=== PATIENT | female | born 1965 | race Caucasian/White ===

== ENCOUNTER 2020-06-23 09:30 | Outpatient (REF) | payer OTHER, SELFPAY ==
[2020-06-23 11:10] LABS: Alanine Aminotransferase 24 U/L (0-31); Albumin Level 4.3 g/dL (3.5-5.0); Alkaline Phosphatase 134 U/L (39-117); Anion Gap 13 (12-20); Aspartate Amino Transferase 17 U/L (5-31); Bilirubin Total 0.3 mg/dL (0.0-1.0); Blood Urea Nitrogen 12 mg/dL (9-16); Calcium 9.2 mg/dL (8.4-10.2); Carbon Dioxide 26 mmol/L (22-29); Chloride 107 mmol/L (96-108); Estimated Glomerular Filt Rate 55; Glucose Fasting 110 mg/dL (60-99); Magnesium 2.2 mg/dL (1.6-2.6); Phosphorus 4.3 mg/dL (2.7-4.5); Potassium 5.3 mmol/l (3.3-5.1); Sodium 141 mmol/L (135-145)
[2020-06-25 19:16] LABS: Calcium (PTHI) 9.5 mg/dL (8.6-10.4); PTHI 64 pg/mL (14-64)
== END 2020-06-23 09:31 | disposition home or self-care (01) ==
LOC: HO.LAB 09:30
PROVIDERS: PCP Internal Medicine; Visit Provider Internal Medicine Endocrinology, Diabetes & Metabolism
DX: E21.3 Hyperparathyroidism, unspecified (principal)
CPT/HCPCS: 36415; 80053; 83735; 83970; 84100

== ENCOUNTER 2020-06-27 07:21 | Outpatient (REF) | payer OTHER, SELFPAY ==
[2020-06-27 08:40] LABS: Anion Gap 14 (12-20); Blood Urea Nitrogen 13 mg/dL (9-16); Calcium 9.3 mg/dL (8.4-10.2); Carbon Dioxide 26 mmol/L (22-29); Chloride 108 mmol/L (96-108); Estimated Glomerular Filt Rate 52; Glucose Random 117 mg/dL (60-115); Potassium 4.7 mmol/l (3.3-5.1); Sodium 143 mmol/L (135-145)
== END 2020-06-27 07:22 | disposition home or self-care (01) ==
LOC: HO.LAB 07:21
PROVIDERS: PCP Internal Medicine; Visit Provider Internal Medicine Endocrinology, Diabetes & Metabolism
DX: E21.0 Primary hyperparathyroidism (principal)
CPT/HCPCS: 80048

== ENCOUNTER → 2020-06-29 09:21 | Outpatient (BNVA) | payer OTHER, SELFPAY | PROVIDERS: PCP Internal Medicine; Referring Provider Internal Medicine; Visit Provider Internal Medicine Endocrinology, Diabetes & Metabolism | DX: E11.9 Type 2 diabetes mellitus without complications (principal); Z79.84 Long term (current) use of oral hypoglycemic drugs; E04.2 Nontoxic multinodular goiter; I10 Essential (primary) hypertension; E78.5 Hyperlipidemia, unspecified; E66.9 Obesity, unspecified; Z68.37 Body mass index [BMI] 37.0-37.9, adult; E21.0 Primary hyperparathyroidism | CPT/HCPCS: 82947 ==

== ENCOUNTER 2020-07-27 10:16 | Outpatient (REF) | payer OTHER, SELFPAY ==
--- NOTE | 2020-07-27 10:21 | MM_ITS ---
EXAMINATION: MM SCREENING DIGITAL BREAST TOMOSYNTHESIS, BILATERAL CLINICAL INFORMATION: Screening. Asymptomatic. The lifetime risk of breast cancer based on the Tyrer-Cuzick Model is 10.8%. COMPARISON: Mammography: July 22, 2019 and studies dating back to August 03, 2012 TECHNIQUE: Digital breast tomosynthesis is performed in both the craniocaudal and mediolateral oblique views along with computer-aided detection (CAD). Synthesized 2D images are generated from the tomosynthesis. FINDINGS: The breasts are almost entirely fatty (ACR BI-RADS breast composition Category a). There are no significant masses, abnormal calcifications, or other abnormalities. MM/MM tomosynthesis screening BI IMPRESSION: There are no significant changes from prior study. ASSESSMENT: BI-RADS 1: Negative RECOMMENDATION: Routine annual mammography screening. This patient's information was entered into a reminder system with a target due date for their next mammogram.
== END 2020-07-27 10:17 | disposition home or self-care (01) ==
LOC: HO.MAMMO 10:16
PROVIDERS: PCP Internal Medicine; Visit Provider Internal Medicine
DX: Z12.31 Encounter for screening mammogram for malignant neoplasm of breast (principal)
CPT/HCPCS: 77063; 77067

== ENCOUNTER 2020-08-04 08:17 | Outpatient (REF) | payer OTHER, SELFPAY ==
[2020-08-04 09:44] LABS: Alanine Aminotransferase 27 U/L (0-31); Albumin Level 4.3 g/dL (3.5-5.0); Alkaline Phosphatase 120 U/L (39-117); Anion Gap 12 (12-20); Aspartate Amino Transferase 19 U/L (5-31); Bilirubin Total 0.3 mg/dL (0.0-1.0); Blood Urea Nitrogen 10 mg/dL (9-16); Calcium 8.8 mg/dL (8.4-10.2); Carbon Dioxide 30 mmol/L (22-29); Chloride 105 mmol/L (96-108); Cholesterol 169 mg/dL; Estimated Glomerular Filt Rate > 60; Glucose Fasting 122 mg/dL (60-99); HDL Cholesterol 62 mg/dL; LDL Cholesterol Calculated 84 mg/dl; Potassium 4.6 mmol/l (3.3-5.1); Sodium 142 mmol/L (135-145); Total Protein 6.8 g/dL (6.5-8.0); Triglycerides 115 mg/dL
[2020-08-04 10:04] LABS: Vitamin D 25-OH Total 40.3 ng/mL (>30)
[2020-08-06 23:16] LABS: Adrenocorticotropic Hormone 12 pg/mL (6-50)
[2020-08-08 15:11] LABS: Dexamethasone <20 ng/dL
== END 2020-08-04 08:18 | disposition home or self-care (01) ==
LOC: HO.LAB 08:17
PROVIDERS: Internal Medicine Endocrinology, Diabetes & Metabolism; PCP Internal Medicine; Visit Provider Internal Medicine
DX: E66.9 Obesity, unspecified (principal); E11.9 Type 2 diabetes mellitus without complications; E55.9 Vitamin D deficiency, unspecified
CPT/HCPCS: 80053; 80061; 80299; 82024; 82306; 82533

== ENCOUNTER 2020-10-01 10:09 | Outpatient (REF) | payer OTHER, SELFPAY ==
--- NOTE | 2020-10-01 10:14 | XR_ITS ---
EXAMINATION: XR WRIST, LEFT CLINICAL INFORMATION: Left wrist pain. COMPARISON: None. TECHNIQUE: PA, lateral, oblique, and scaphoid views of the left wrist. FINDINGS: No acute fracture or dislocation. Normal carpal alignment. Mild joint space narrowing with tiny marginal osteophytes at the 1st carpometacarpal joint. No osseous erosion. No abnormal soft tissue calcification. XR/XR wrist LT min 3V IMPRESSION: Mild degenerative arthritis at the 1st carpometacarpal joint.
== END 2020-10-01 10:10 | disposition home or self-care (01) ==
LOC: HO.XRAY 10:09
PROVIDERS: PCP Internal Medicine; Visit Provider Internal Medicine
DX: M25.532 Pain in left wrist (principal)
CPT/HCPCS: 73110

== ENCOUNTER → 2020-10-05 08:26 | Outpatient (BNVA) | payer OTHER, SELFPAY | PROVIDERS: PCP Internal Medicine; Visit Provider Internal Medicine Endocrinology, Diabetes & Metabolism | DX: Z76.89 Persons encountering health services in other specified circumstances (principal) ==

== ENCOUNTER 2020-11-09 10:00 | Outpatient (RCR) | payer OTHER, SELFPAY ==
--- NOTE | 2020-11-09 11:05 | MHC.OT.DC ---
[address] [phone] F: [phone] Occupational Therapy Discharge Note Provider: DR. TIO HERNANDEZ Diagnosis: LEFT WRIST PAIN Date of Surgery: Date of Evaluation: 10/05/20 Date of Discharge: Treatments to Date: 5 Cancellations to Date: 0 No Shows to Date: 0 Discharge Status: Achieved Goals Improved Function Independent with HEP Discharge Summary: Pt LEFT RADIAL WRIST AND BASAL JT PAIN AND LEFT HAND FUNCTION IMPROVED. SHE REPORTS NO TO MILD DIFFICULTY WITH SEWING, LIGHT QUILTING AND HOMEMAKING . 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
== END 2020-11-09 11:04 | disposition other institution (70) ==
LOC: HO.OT 10:00
PROVIDERS: PCP Internal Medicine; Visit Provider Internal Medicine
DX: M25.532 Pain in left wrist (principal)
CPT/HCPCS: 29130; 97035; 97110; 97140; 97165; 97760

== ENCOUNTER 2021-02-14 08:25 | Outpatient (REF) | payer OTHER, SELFPAY ==
--- NOTE | ~2021-02-14 | US_ITS ---
EXAMINATION: US THYROID CLINICAL INFORMATION: Nontoxic multinodular goiter. COMPARISON: Ultrasound soft tissue head/neck thyroid dated 07/29/2019 and 08/14/2017. TECHNIQUE: Linear transducer grayscale and color Doppler examination with attention to the region of the thyroid. FINDINGS: SIZE: Measurements of the thyroid lobes and nodules are given in sagittal, anteroposterior and transverse dimensions respectively. Right Thyroid Lobe: 4.2 x 2.1 x 1.5 cm, volume 7.0 mL. Previously 4.4 x 1.4 x 1.4 cm, volume 4.6 mL. Parenchyma: The gland echotexture is homogeneous. Thyroid vascularity is normal. Left Thyroid Lobe: 4.6 x 2.2 x 1.3 cm, volume 6.8 mL. Previously 3.9 x 1.3 x 1.4 cm, volume 3.9 mL. Parenchyma: The gland echotexture is homogeneous. Thyroid vascularity is normal. Isthmus: 0.4 cm in maximum AP dimension. Previously 0.2 cm. Estimated total number of nodules greater than or equal to 1 cm: 3. Transcription nodules are described as follows: 1. Location: Right mid. Size: 1.1 x 0.6 x 1.0 cm, volume 0.3 mL. Previously: 0.9 x 0.4 x 0.6 cm, volume 0.1 mL. Nodule characteristics: Composition: Solid/almost completely solid (2). Echogenicity: Isoechoic (1). Shape: Not taller than wide (0). Margins: Smooth (0). Echogenic Foci: None (0). ACR TI-RADS total points: 3 Previous: n/a ACR TI-RADS category: 3 Previous: n/a Significant change in size (>/= 20% in 2 dimensions and minimal increase of 2 mm or 50% or greater increase in volume): This nodule was previously biopsied on February 16, 2020. Change in features: Enlargement Change in ACR TI-RADS risk category: n/a 2. Location: Left mid. Size: 1.0 x 0.7 x 1.0 cm, volume 0.4 mL. Previously: 0.8 x 0.4 x 0.7 cm, volume 0.1 mL. Nodule characteristics: Composition: Solid/almost completely solid (2). Echogenicity: Hypoechoic (2). Shape: Not taller than wide (0). Margins: Smooth (0). Echogenic Foci: None (0). ACR TI-RADS total points: 4 Previous: n/a ACR TI-RADS category: 4 Previous: n/a Significant change in size (>/= 20% in 2 dimensions and minimal increase of 2 mm or 50% or greater increase in volume): Yes Change in features: No Change in ACR TI-RADS risk category: n/a 3. Location: Left inferior. Size: 0.8 x 0.5 x 0.7 cm, volume 0.15 mL. Previously: 0.6 x 0.4 x 0.4 cm, volume 0.05 mL. Nodule characteristics: Composition: Solid/almost completely solid (2). Echogenicity: Hyperechoic (1). Shape: Not taller than wide (0). Margins: Smooth (0). Echogenic Foci: None (0). ACR TI-RADS total points: 3 Previous: n/a ACR TI-RADS category: 3 Previous: n/a Significant change in size (>/= 20% in 2 dimensions and minimal increase of 2 mm or 50% or greater increase in volume): Yes Change in features: No Change in ACR TI-RADS risk category: n/a 4. Location: Left inferior. Size: 1.0 x 0.4 x 0.8 cm, volume 0.2 mL. Nodule characteristics: Composition: Mixed cystic and solid (1). Echogenicity: Hypoechoic (2). Shape: Not taller than wide (0). Margins: Smooth (0). Echogenic Foci: None (0). ACR TI-RADS total points: 3 ACR TI-RADS category: 3 NODES: No lymphadenopathy is seen in the tissue surrounding the thyroid gland. US/US thyroid IMPRESSION: Multiple thyroid nodules with one TR4 nodule within the midpole of the left thyroid gland for which continued follow-up is recommended. ACR TI-RADS RECOMMENDATION REFERENCE: Ultrasound-guided fine-needle aspiration, followup ultrasound, no further follow up. * TR1 (0 point) and TR 2 (2 points): No FNA or follow up * TR3 (3 points): FNA if more than or equal to 2.5 cm in maximum dimension, followup ultrasound in 1, 3 and 5 years if 1.5 to 2.4 cm in maximum dimension. * TR4 (4-6 points): FNA if more than or equal to 1.5 cm in maximum dimension, followup ultrasound in 1, 2, 3 and 5 years if 1 to 1.4 cm in maximum dimension. * TR5 (more than or equal to 7 points): FNA if more than or equal to 1 cm in maximum dimension, followup ultrasound every year for 5 years if 0.5 to 0.9 cm in maximum dimension. * TR3, TR4 or TR5 nodules that are below the size threshold for follow up receive no follow up.
== END 2021-02-14 08:26 | disposition home or self-care (01) ==
LOC: HO.US 08:25
PROVIDERS: PCP Internal Medicine; Visit Provider Internal Medicine Endocrinology, Diabetes & Metabolism
DX: E04.2 Nontoxic multinodular goiter (principal)
CPT/HCPCS: 76536

== ENCOUNTER 2021-03-19 06:53 | Outpatient (REF) | payer OTHER, SELFPAY ==
[2021-03-19 07:33] LABS: MANUAL DIFF FLAG NO
[2021-03-19 07:39] LABS: Basophils Percent Auto 0.4 % (0-2); Eosinophils Absolute Auto 0.1 X10*3/uL (0.0-0.4); Eosinophils Percent Auto 0.9 % (0-4); Hematocrit 38.4 % (37-47); Hemoglobin 12.3 g/dl (12.0-16.0); Imm Gran Abs Auto 0.02 X10*3/uL (0.00-0.03); Imm Gran Pct Auto 0.2 % (0.0-0.4); Lymphocytes Absolute Auto 2.6 X10*3/uL (1.2-4.9); Lymphocytes Percent Auto 31.1 % (20-40); Mean Corpuscular Hemoglobin 27.5 pg (27.0-33.0); Mean Corpuscular Volume 85.9 fL (80-98); Mean Platelet Volume 9.7 fL (9.4-12.3); Monocytes Absolute Auto 0.7 X10*3/uL (0.1-1.2); Monocytes Percent Auto 8.7 % (2-11); Neutrophils Percent Auto 58.7 % (45-73); Platelet Count 251 X10*3/uL (160-400); Red Blood Count 4.47 X10*6/uL (4.20-5.50); Red Cell Distribution Width 13.2 % (11.0-16.0); White Blood Count 8.4 X10*3/uL (4.8-10.8)
[2021-03-19 08:00] LABS: Estimated Average Glucose 134 mg/dL; Hemoglobin A1c % 6.3 %
[2021-03-19 08:01] LABS: Alanine Aminotransferase 21 U/L (0-31); Albumin Level 4.1 g/dL (3.5-5.0); Alkaline Phosphatase 103 U/L (39-117); Anion Gap 16 (12-20); Aspartate Amino Transferase 18 U/L (5-31); Bilirubin Total 0.2 mg/dL (0.0-1.0); Blood Urea Nitrogen 13 mg/dL (9-16); Calcium 9.1 mg/dL (8.4-10.2); Carbon Dioxide 27 mmol/L (22-29); Chloride 106 mmol/L (96-108); Cholesterol 169 mg/dL; Estimated Glomerular Filt Rate 57; Glucose Fasting 140 mg/dL (60-99); HDL Cholesterol 64 mg/dL; LDL Cholesterol Calculated 88 mg/dl; Lactate Dehydrogenase 185 U/L (122-220); Potassium 4.7 mmol/L (3.3-5.1); Sodium 144 mmol/L (135-145); Total Protein 6.7 g/dL (6.5-8.0); Triglycerides 87 mg/dL
[2021-03-19 08:21] LABS: Vitamin D 25-OH Total 33.4 ng/mL (>30)
[2021-03-19 08:34] LABS: Folate 8.8 ng/mL (> or = 4.0); Vitamin B12 342 pg/mL (200-900)
[2021-03-19 09:28] LABS: Creatinine Urine 178.64 mg/dL; Microalbum/Creatinine Ratio Ur 3.9 ug/mg cr
[2021-03-21 14:01] LABS: Calcium (PTHI) 9.3 mg/dL (8.6-10.4); PTHI 50 pg/mL (14-64)
[2021-03-22 18:57] LABS: Adrenocorticotropic Hormone 17 pg/mL (6-50)
[2021-03-24 14:51] LABS: VITAMIN D (1,25 OH) D3 29 pg/mL; Vit D (1,25-Dihydroxy) Total 29 pg/mL (18-72); Vitamin D (1,25 OH) D2 <8 pg/mL
== END 2021-03-19 06:54 | disposition home or self-care (01) ==
LOC: HO.LAB 06:53
PROVIDERS: Absent Provider Internal Medicine; PCP Internal Medicine; Visit Provider Internal Medicine Endocrinology, Diabetes & Metabolism
DX: C64.9 Malignant neoplasm of unspecified kidney, except renal pelvis (principal); E78.5 Hyperlipidemia, unspecified; E11.65 Type 2 diabetes mellitus with hyperglycemia; E21.0 Primary hyperparathyroidism; E66.9 Obesity, unspecified
CPT/HCPCS: 36415; 80053; 80061; 82024; 82043; 82306; 82533; 82607; 82652; 82746; 83036; 83615; 83970; 84100; 85025

== ENCOUNTER → 2021-03-22 07:56 | Outpatient (BNVA) | payer OTHER, SELFPAY | PROVIDERS: PCP Internal Medicine; Visit Provider Internal Medicine Endocrinology, Diabetes & Metabolism | DX: E11.65 Type 2 diabetes mellitus with hyperglycemia (principal); E04.2 Nontoxic multinodular goiter; E78.5 Hyperlipidemia, unspecified; E66.9 Obesity, unspecified; E21.0 Primary hyperparathyroidism; I10 Essential (primary) hypertension | CPT/HCPCS: 82947 ==

== ENCOUNTER 2021-03-27 07:27 | Outpatient (REF) | payer OTHER, SELFPAY ==
[2021-03-27 08:36] LABS: Alanine Aminotransferase 23 U/L (0-31); Albumin Level 4.5 g/dL (3.5-5.0); Alkaline Phosphatase 107 U/L (39-117); Anion Gap 15 (12-20); Aspartate Amino Transferase 16 U/L (5-31); Bilirubin Total 0.6 mg/dL (0.0-1.0); Blood Urea Nitrogen 13 mg/dL (9-16); Calcium 9.6 mg/dL (8.4-10.2); Carbon Dioxide 24 mmol/L (22-29); Chloride 106 mmol/L (96-108); Estimated Glomerular Filt Rate 56; Glucose Fasting 122 mg/dL (60-99); Potassium 4.9 mmol/L (3.3-5.1); Sodium 140 mmol/L (135-145); Total Protein 7.6 g/dL (6.5-8.0)
[2021-03-29 23:21] LABS: Adrenocorticotropic Hormone <5 pg/mL (6-50)
[2021-04-03 18:36] LABS: Saliva Cortisol 0.04 mcg/dL
[2021-04-04 10:26] LABS: Dexamethasone 313 ng/dL
== END 2021-03-27 07:28 | disposition home or self-care (01) ==
LOC: HO.LAB 07:27
PROVIDERS: PCP Internal Medicine; Visit Provider Internal Medicine Endocrinology, Diabetes & Metabolism
DX: E66.9 Obesity, unspecified (principal); E11.65 Type 2 diabetes mellitus with hyperglycemia
CPT/HCPCS: 36415; 80053; 80299; 82024; 82530; 82533

== ENCOUNTER 2021-07-27 08:47 | Outpatient (REF) | payer OTHER, SELFPAY ==
[2021-07-27 09:40] LABS: Alanine Aminotransferase 26 U/L (0-31); Albumin Level 4.4 g/dL (3.5-5.0); Alkaline Phosphatase 96 U/L (39-117); Anion Gap 13 (12-20); Aspartate Amino Transferase 18 U/L (5-31); Bilirubin Total 0.4 mg/dL (0.0-1.0); Blood Urea Nitrogen 15 mg/dL (9-16); Calcium 8.8 mg/dL (8.4-10.2); Carbon Dioxide 28 mmol/L (22-29); Chloride 106 mmol/L (96-108); Cholesterol 172 mg/dL; Estimated Glomerular Filt Rate 52; Glucose Fasting 126 mg/dL (60-99); HDL Cholesterol 57 mg/dL; LDL Cholesterol Calculated 92 mg/dl; Potassium 4.7 mmol/L (3.3-5.1); Sodium 142 mmol/L (135-145); Total Protein 7.1 g/dL (6.5-8.0); Triglycerides 117 mg/dL
[2021-07-27 10:39] LABS: Cortisol Random 10.5 ug/dL
[2021-07-29 13:21] LABS: PTHI 45 pg/mL (14-64)
[2021-07-29 17:52] LABS: Adrenocorticotropic Hormone 17 pg/mL (6-50)
[2021-08-01 15:16] LABS: VITAMIN D (1,25 OH) D3 52 pg/mL; Vit D (1,25-Dihydroxy) Total 52 pg/mL (18-72); Vitamin D (1,25 OH) D2 <8 pg/mL
[2021-08-07 10:17] LABS: Dexamethasone <20 ng/dL
== END 2021-07-27 08:48 | disposition home or self-care (01) ==
LOC: HO.LAB 08:47
PROVIDERS: Absent Provider Internal Medicine; PCP Internal Medicine; Visit Provider Internal Medicine Endocrinology, Diabetes & Metabolism
DX: E11.65 Type 2 diabetes mellitus with hyperglycemia (principal); E66.9 Obesity, unspecified; E21.0 Primary hyperparathyroidism; E78.5 Hyperlipidemia, unspecified
CPT/HCPCS: 36415; 80053; 80061; 80299; 82024; 82306; 82533; 82652; 83970

== ENCOUNTER 2021-08-23 09:42 | Outpatient (REF) | payer OTHER, SELFPAY ==
--- NOTE | ~2021-08-23 | MM_ITS ---
EXAMINATION: MM SCREENING DIGITAL BREAST TOMOSYNTHESIS, BILATERAL CLINICAL INFORMATION: Screening. Asymptomatic. The lifetime risk of breast cancer based on the Tyrer-Cuzick Model is 11%. COMPARISON: Mammography: 07/27/2020, 07/22/2019, 05/07/2018 TECHNIQUE: Digital breast tomosynthesis is performed in both the craniocaudal and mediolateral oblique views along with computer-aided detection (CAD). Synthesized 2D images are generated from the tomosynthesis. Additional bilateral exaggerated CC views are provided. FINDINGS: There are scattered areas of fibroglandular density (ACR BI-RADS breast composition Category b). Breast tissue composition borders on predominantly fatty. Background stromal and fibroglandular densities are stable. There are no significant masses, abnormal calcifications, or other abnormalities. MM/MM tomosynthesis screening BI IMPRESSION: No mammographic evidence of malignancy. ASSESSMENT: BI-RADS 1: Negative RECOMMENDATION: Routine annual mammography screening. This patient's information was entered into a reminder system with a target due date for their next mammogram.
== END 2021-08-23 09:43 | disposition home or self-care (01) ==
LOC: HO.MAMMO 09:42
PROVIDERS: Visit Provider Internal Medicine
DX: Z12.31 Encounter for screening mammogram for malignant neoplasm of breast (principal)
CPT/HCPCS: 77063; 77067

== ENCOUNTER → 2021-10-03 14:30 | Outpatient (BNVA) | payer OTHER, SELFPAY | PROVIDERS: PCP Internal Medicine; Referring Provider Internal Medicine; Visit Provider Nurse Practitioner ==

== ENCOUNTER 2021-10-29 08:54 | Day surgery (SDC) | payer OTHER, SELFPAY ==
[2021-10-24 10:39] VITALS: BMI 35.6
--- NOTE | 2021-10-28 09:20 | P.CONAN_ITS ---
Documented by User: Jackie Rodriguez NP 10/28/21 09:25 HPI - Anesthesia Eval Consult details Narrative: 56yo F for Colonoscopy PMFSH Active Problems Active Problems: All Active Problems (Updated 10/03/21 @ 15:06 by CRIS Gutierrez) Constipation (Acute) Tubulovillous adenoma of colon (Acute) GERD (gastroesophageal reflux disease) (Acute) Mild recurrent major depression (Acute) Class 2 severe obesity with serious comorbidity and body mass index (BMI) of 38.0 to 38.9 in adult (Acute) Change in bowel habits (Acute) Cancer of right kidney (Chronic) Left wrist pain (Acute) Obesity (BMI 30-39.9) (Acute) Diabetes type 2, controlled (Acute) Non-toxic multinodular goiter (Acute) Hypertension (Acute) Dyslipidemia (Acute) Primary hyperparathyroidism (Acute) Past Medical History Medical History Cancer of right kidney Change in bowel habits Class 2 severe obesity with serious comorbidity and body mass index (BMI) of 38.0 to 38.9 in adult Depression Diabetes type 2, controlled Dyslipidemia GERD (gastroesophageal reflux disease) Hypertension Left wrist pain Mild recurrent major depression Non-toxic multinodular goiter Obesity (BMI 30-39.9) Primary hyperparathyroidism Family History Family History Father Diabetes Hypertension High cholesterol Mother Dementia Mental health disorder Surgical History Surgical History History of back surgery History of kidney surgery History of parathyroidectomy History of removal of ovarian cyst Social History Social History Housing: House Alcohol intake: never Patient Tobacco Use Status: Never used Tobacco e-Cigarette/Vaping Use: Never Used Second Hand Smoke Exposure: No Use of substances other than those prescribed or required for medical reasons: Yes Substance Use Frequency: Weekly Are you DNR?: No Advance Directives: No Advance Directives Information Provided: Yes service: No Current occupational status: employed Current occupational exposures/hazards: No Meds Allergies Allergy/AdvReac Type Severity Reaction Status Date / Time No Known Allergies Allergy Verified 10/03/21 14:48 [No Known Allergies*] Home Medications Medication Instructions Recorded Confirmed Last Taken Type aripiprazole 5 mg tablet 5 mg PO DAILY 06/29/20 07/31/21 Unknown History aspirin 81 mg tablet,delayed 81 mg PO DAILY 06/29/20 07/31/21 Unknown History release (Adult Aspirin Regimen) bupropion HCl 300 mg 24 hr tablet, 300 mg PO QAM 06/29/20 07/31/21 Unknown History extended release (Wellbutrin XL) aripiprazole 2 mg tablet 2 mg PO DAILY 07/31/21 07/31/21 Unknown History escitalopram oxalate 10 mg tablet 10 mg PO DAILY 10/03/21 Unknown History Exam Exam Date and Time: October 28, [id number] Height,Weight and Vital Signs: Height 5 ft 6 in Weight 100.244 kg Pertinent Lab Results Pertinent Lab Results: Laboratory Tests 03/19/21 07/27/21 07:15 09:03 WBC 8.4 Hgb 12.3 Hct 38.4 Plt Count 251 Sodium 142 Potassium 4.7 Chloride 106 Carbon Dioxide 28 BUN 15 Creatinine 1.10 Assessment and Plan Assessment Anesthesia Assessment: Chart Reviewed Documented by User: Shashi Alanis MD 10/29/21 09:36 [facility] Past Medical History Medical History Cancer of right kidney Change in bowel habits Class 2 severe obesity with serious comorbidity and body mass index (BMI) of 38.0 to 38.9 in adult Depression Diabetes type 2, controlled Dyslipidemia GERD (gastroesophageal reflux disease) Hypertension Left wrist pain Mild recurrent major depression Non-toxic multinodular goiter Obesity (BMI 30-39.9) Primary hyperparathyroidism Family History Family History Father Diabetes Hypertension High cholesterol Mother Dementia Mental health disorder Family history of problems with anesthesia: No Surgical History Surgical History History of back surgery History of kidney surgery History of parathyroidectomy History of removal of ovarian cyst History of Problems with Anesthesia: No Social History Social History Housing: House Alcohol intake: never Patient Tobacco Use Status: Never used Tobacco e-Cigarette/Vaping Use: Never Used Second Hand Smoke Exposure: No Use of substances other than those prescribed or required for medical reasons: Yes Substance Use Frequency: Weekly Are you DNR?: No Advance Directives: No Advance Directives Information Provided: Yes service: No Current occupational status: employed Current occupational exposures/hazards: No Meds Allergies Allergy/AdvReac Type Severity Reaction Status Date / Time No Known Allergies Allergy Verified 10/03/21 14:48 [No Known Allergies*] Home Medications Medication Instructions Recorded Confirmed Last Taken Type aripiprazole 5 mg tablet 5 mg PO DAILY 06/29/20 07/31/21 Unknown History aspirin 81 mg tablet,delayed 81 mg PO DAILY 06/29/20 07/31/21 Unknown History release (Adult Aspirin Regimen) bupropion HCl 300 mg 24 hr tablet, 300 mg PO QAM 06/29/20 07/31/21 Unknown History extended release (Wellbutrin XL) aripiprazole 2 mg tablet 2 mg PO DAILY 07/31/21 07/31/21 Unknown History escitalopram oxalate 10 mg tablet 10 mg PO DAILY 10/03/21 Unknown History Exam Airway Mallampati Class: II TM Dist: >3cm Neck ROM: Full Loose/Missing/Broken Teeth: No Heart: [id number] Lungs: cta b/l Assessment and Plan Assessment Anesthesia Assessment: Anesthesia Plan Discussed Final Anesthetic Review Family History of Problems with Anesthesia: No History of Problems with Anesthesia: No NPO: Yes ASA Class: III Final Preanesthetic Review: No Changes in Pt Med Stat, Meds/Allgs Chart Reviewed, Consent Obtained/Reviewed and Anes Risks/Benef Reviewed Patient Risk: Intermediate Procedure Risk: Intermediate Assessment/Block/Sedation in SS: Assess/Block/Sedation-SS Anesthetic Plan Anesthetic Plan: MAC: and Agree w/ Assess. and Plan Disposition: Standard PACU
--- NOTE | 2021-10-29 08:56 | MHC.SHP ---
Pre-Procedural Eval Section A Date of Service: 10/29/21 Section B Chief Complaint: Benign neoplasm of Colon, unspecified Relevant Family History (Specify if Yes): No Relevant Social History: None Present Medications: see Short Stay Collaborative assessment Medical History: Significant History (Cancer of right kidney Change in bowel habits Class 2 severe obesity with serious comorbidity and body mass index (BMI) of 38.0 to 38.9 in adult Depression Diabetes type 2, controlled Dyslipidemia GERD (gastroesophageal reflux disease) Hypertension Left wrist pain Mild recurrent major depression Non) History of Previous Operations: Relevant previous surgery/procedure and date(s) (History of back surgery History of kidney surgery History of parathyroidectomy History of removal of ovarian cyst) Allergies: Allergies Allergy/AdvReac Type Severity Reaction Status Date / Time No Known Allergies Allergy Verified 10/03/21 14:48 [No Known Allergies*] Review of Systems Sugical H&P ROS: Negative: Constitution, Cardiovascular, Respiratory, Neurological, Psychiatric, Hem-Onc, Allergic/Immunologic, Gastrointestinal, Genitourinary, Musculoskeletal, Integumentary, Endocrine and Eyes/Ears/Nose/Throat Exam Surgical H&P Exam: Normal: HEENT, Normal: Heart, Normal: Lungs, Normal: Extremities, Normal: Abdomen, Normal: Skin and Normal: Neurological Plan Diagnosis/Plan: Unchanged I have reviewed the history and physical and performed a pertinent physical examination on my patient. No changes have occurred unless specified.
[2021-10-29 09:20] VITALS: BP 142/77; PULSE 86; RESP 18; TEMP 36.8; O2SAT 95
[2021-10-29 09:26] LABS: Glucose, Whole Blood 118 mg/dL (60-115)
[2021-10-29] MEDS: Lactated Ringers 1,000 ML 100 ML IVCONT (09:34)
--- NOTE | 2021-10-29 10:02 | P.BOP_ITS ---
Brief Operative Note Date of Service: 10/29/21 Pre-op diagnosis: colon screening, hx of polyps Post-op diagnosis: same Procedure: see op note Surgeon: Melva Mina MD Anesthesia: MAC Was an [employer]ilities Rental Manager used for this Procedure?: No Estimated blood loss (mL): 0 Condition: stable Disposition: PACU
--- NOTE | 2021-10-29 10:03 | P.OP_ITS ---
Operative Note Operative Note Date of Service: 10/29/21 Narrative: Operative Information Procedure Description: Colonoscopy COLONOSCOPY Instrument: Olympus variable stiffness adult scope 190L Colonoscopy Monitoring: Vital signs and clinical assessment, continuous EKG monitoring, Pulse oximetry, Carbon Dioxide monitoring and blood pressure monitoring were done throughout the procedure. Colon withdrawal time was 11 minutes. Procedure: The patient was placed in the left lateral decubitis position and pre-procedure medications were administered. After a digital rectal examination of the ano-rectum, the video colonoscope was inserted into the rectum and advanced through the colon to the cecum/TI. The colonoscope was slowly withdrawn in a retrograde panoramic fashion and the colon mucosa was carefully examined including a retroflexed view of the rectum. Findings and interventions are described below. Procedure Difficulty: easy Findings: Terminal Ileum-normal Cecum:normal Ascending Colon: 6-7 mm sessile polyp removed with forceps Transverse Colon -normal Descending Colon:normal Sigmoid Colon: normal Rectum: Retroflexion with small internal hemorrhoids, grade I, 10 mm sessile polyp removed with cold snare Anorectum - normal Colon preparation: [place] Bowel Preparation Scale Right colon; 2 Transverse colon: 2 Left colon; 3 (0 = Unprepared colon segment with mucosa not seen due to solid stool that cannot be cleared. 1 = Portion of mucosa of the colon segment seen, but other areas of the colon segment not well seen due to staining, residual stool and/or opaque liquid. 2 = Minor amount of residual staining, small fragments of stool and/or opaque liquid, but mucosa of colon segment seen well. 3 = Entire mucosa of colon segment seen well with no residual staining, small fragments of stool or opaque liquid) Impression and Post Procedure Diagnosis: polyps internal hemorrhoids Plan: High fiber diet leaflet Avoid straining at stool, epsom salts and sitz bath, anusol supps or cream Repeat Colonoscopy in 5 years due to hx of polyps or earlier if clinically indicated Above findings were reviewed with the patient and relevant handouts were provided if indicated.
[2021-10-29 10:45] VITALS: BP 117/69; PULSE 82; RESP 13; TEMP 36.7; O2SAT 98
[2021-10-29 11:00] VITALS: BP 123/69; PULSE 89; RESP 18; TEMP 36.4; O2SAT 98
== END 2021-10-29 12:03 | disposition home or self-care (01) ==
PROVIDERS: PCP Internal Medicine; Visit Provider Internal Medicine Gastroenterology
PROC: 0DJD8ZZ Inspection of Lower Intestinal Tract, Via Natural or Artificial Opening Endoscopic (ICD-10-PCS; CPT 45378; principal; 2021-10-29 10:00)
DX: Z12.11 Encounter for screening for malignant neoplasm of colon (principal); Z86.010 Personal history of colon polyps; D12.2 Benign neoplasm of ascending colon; K62.1 Rectal polyp; K64.0 First degree hemorrhoids; K21.9 Gastro-esophageal reflux disease without esophagitis; E11.9 Type 2 diabetes mellitus without complications; C64.1 Malignant neoplasm of right kidney, except renal pelvis; I10 Essential (primary) hypertension; E66.01 Morbid (severe) obesity due to excess calories; Z68.38 Body mass index [BMI] 38.0-38.9, adult; E78.00 Pure hypercholesterolemia, unspecified; E21.0 Primary hyperparathyroidism; E04.2 Nontoxic multinodular goiter; F33.0 Major depressive disorder, recurrent, mild; Z79.82 Long term (current) use of aspirin; Z79.899 Other long term (current) drug therapy
CPT/HCPCS: 45385; 45380; 82947; 88305; J3010

== ENCOUNTER → 2021-10-31 09:28 | Outpatient (BNVA) | payer OTHER, SELFPAY | PROVIDERS: PCP Internal Medicine; Referring Provider Internal Medicine; Visit Provider Nurse Practitioner ==

== ENCOUNTER → 2021-11-29 14:28 | Outpatient (BNVA) | payer OTHER, SELFPAY | PROVIDERS: PCP Internal Medicine; Visit Provider Nurse Practitioner ==

== ENCOUNTER 2021-12-13 08:18 | Outpatient (REF) | payer OTHER, SELFPAY ==
[2021-12-13 09:32] LABS: Alanine Aminotransferase 29 U/L (0-31); Albumin Level 4.3 g/dL (3.5-5.0); Alkaline Phosphatase 98 U/L (39-117); Anion Gap 13 (12-20); Aspartate Amino Transferase 21 U/L (5-31); Bilirubin Total 0.5 mg/dL (0.0-1.0); Blood Urea Nitrogen 13 mg/dL (9-16); Calcium 9.4 mg/dL (8.4-10.2); Carbon Dioxide 28 mmol/L (22-29); Chloride 106 mmol/L (96-108); Cholesterol 155 mg/dL; Estimated Glomerular Filt Rate 52; Glucose Fasting 128 mg/dL (60-99); HDL Cholesterol 50 mg/dL; LDL Cholesterol Calculated 80 mg/dl; Potassium 4.9 mmol/L (3.3-5.1); Sodium 142 mmol/L (135-145); Triglycerides 127 mg/dL
[2021-12-18 13:41] LABS: Vitamin D 25-OH, D2 <4 ng/mL; Vitamin D 25-OH, D3 56 ng/mL; Vitamin D 25-OH, Total 56 ng/mL (30-100)
== END 2021-12-13 08:19 | disposition home or self-care (01) ==
LOC: HO.LAB 08:18
PROVIDERS: PCP Internal Medicine; Visit Provider Internal Medicine
DX: E11.65 Type 2 diabetes mellitus with hyperglycemia (principal); E78.5 Hyperlipidemia, unspecified; E55.9 Vitamin D deficiency, unspecified
CPT/HCPCS: 36415; 80053; 80061; 82306

== ENCOUNTER 2021-12-14 10:53 | Outpatient (REF) | payer OTHER, SELFPAY ==
[2021-12-14 11:46] LABS: Creatinine Urine 28.13 mg/dL; Microalbumin Urine < 5.0 mg/L
== END 2021-12-14 10:54 | disposition home or self-care (01) ==
LOC: HO.LNP 10:53
PROVIDERS: Visit Provider Internal Medicine
DX: E11.65 Type 2 diabetes mellitus with hyperglycemia (principal)
CPT/HCPCS: 82043

== ENCOUNTER → 2022-02-07 11:03 | Outpatient (BNVA) | payer OTHER, SELFPAY | PROVIDERS: PCP Internal Medicine; Visit Provider Internal Medicine Endocrinology, Diabetes & Metabolism | DX: E11.65 Type 2 diabetes mellitus with hyperglycemia (principal); E21.0 Primary hyperparathyroidism; E04.2 Nontoxic multinodular goiter | CPT/HCPCS: 82947 ==

== ENCOUNTER 2022-04-18 08:03 | Outpatient (REF) | payer OTHER, SELFPAY ==
[2022-04-18 09:28] LABS: Alanine Aminotransferase 23 U/L (0-31); Albumin Level 4.2 g/dL (3.5-5.0); Alkaline Phosphatase 90 U/L (39-117); Anion Gap 17 (12-20); Aspartate Amino Transferase 15 U/L (5-31); Bilirubin Total 0.2 mg/dL (0.0-1.0); Blood Urea Nitrogen 14 mg/dL (9-16); Carbon Dioxide 25 mmol/L (22-29); Chloride 105 mmol/L (96-108); Cholesterol 147 mg/dL; Estimated Glomerular Filt Rate > 60; Glucose Fasting 118 mg/dL (60-99); HDL Cholesterol 52 mg/dL; LDL Cholesterol Calculated 74 mg/dl; Potassium 4.3 mmol/L (3.3-5.1); Sodium 143 mmol/L (135-145); Total Protein 6.8 g/dL (6.5-8.0); Triglycerides 107 mg/dL
[2022-04-18 09:51] LABS: Vitamin D 25-OH Total 43.8 ng/mL (>30)
[2022-04-18 09:53] LABS: Creatinine Urine 121.79 mg/dL; Microalbum/Creatinine Ratio Ur 8.2 ug/mg cr
== END 2022-04-18 08:04 | disposition home or self-care (01) ==
LOC: HO.LAB 08:03
PROVIDERS: PCP Internal Medicine; Visit Provider Internal Medicine
DX: E11.9 Type 2 diabetes mellitus without complications (principal); E78.5 Hyperlipidemia, unspecified; E66.01 Morbid (severe) obesity due to excess calories; E55.9 Vitamin D deficiency, unspecified; Z68.37 Body mass index [BMI] 37.0-37.9, adult
CPT/HCPCS: 36415; 80053; 80061; 82043; 82306

== ENCOUNTER 2022-04-29 12:58 | Outpatient (REF) | payer OTHER, SELFPAY ==
--- NOTE | ~2022-04-29 | US_ITS ---
EXAMINATION: US THYROID CLINICAL INFORMATION: Nontoxic multinodular goiter. COMPARISON: US thyroid 02/14/2021 and 07/29/2019. US-guided thyroid biopsy 02/16/2020. TECHNIQUE: Linear transducer freeman-scale and color Doppler examination with attention to the region of the thyroid. FINDINGS: SIZE: Measurements of the thyroid lobes and nodules are given in sagittal, anteroposterior and transverse dimensions respectively. Right Thyroid Lobe: 3.7 x 1.4 x 1.2 cm, volume 3.5 mL. Previously 4.2 x 2.1 x 1.5 cm, volume 7.0 mL. Parenchyma: The gland echotexture is heterogeneous. Thyroid vascularity is normal. Left Thyroid Lobe: 3.6 x 1.5 x 1.3 cm, volume 3.6 mL. Previously 4.6 x 2.2 x 1.3 cm, volume 6.8 mL. Parenchyma: The gland echotexture is heterogeneous. Thyroid vascularity is normal. Isthmus: 0.4 cm in maximum AP dimension. Previously 0.4 cm. Estimated total number of nodules greater than or equal to 1 cm: 3. 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 Location: Right mid. Size: 1.0 x 0.6 x 0.8 cm, volume 0.3 mL. Previously: 1.1 x 0.6 x 1.0 cm, volume 0.3 mL. Nodule characteristics: Composition: Solid/almost completely solid (2). Echogenicity: Isoechoic (1). Shape: Not taller than wide (0). Margins: Smooth (0). Echogenic Foci: None (0). ACR TI-RADS total points: 3 Previous: 3 ACR TI-RADS category: 3 Previous: 3 Significant change in size (>/= 20% in 2 dimensions and minimal increase of 2 mm or 50% or greater increase in volume): No change. Change in features: No change. Change in ACR TI-RADS risk category: No change. 2. Location: Left mid. Size: 1.3 x 0.5 x 0.8 cm, volume 0.3 mL. Previously: 1.0 x 0.7 x 1.0 cm, volume 0.4 mL. Nodule characteristics: Composition: Solid/almost completely solid (2). Echogenicity: Hypoechoic (2). Shape: Not taller than wide (0). Margins: Smooth (0). Echogenic Foci: None (0). ACR TI-RADS total points: 4 Previous: 4 ACR TI-RADS category: 4 Previous: 4 Significant change in size (>/= 20% in 2 dimensions and minimal increase of 2 mm or 50% or greater increase in volume): No change. Change in features: No change. Change in ACR TI-RADS risk category: No change. 3. Location: Left inferior. Size: 1.5 x 0.4 x 0.7 cm, volume 0.2 mL. Previously: 1.0 x 0.4 x 0.8 cm, volume 0.2 mL. Nodule characteristics: Composition: Mixed cystic and solid (1). Echogenicity: Hypoechoic (2). Shape: Not taller than wide (0). Margins: Smooth (0). Echogenic Foci: None (0). ACR TI-RADS total points: 3 Previous: 3 ACR TI-RADS category: 3 Previous: 3 Significant change in size (>/= 20% in 2 dimensions and minimal increase of 2 mm or 50% or greater increase in volume): No change. Change in features: No change. Change in ACR TI-RADS risk category: No change. 4. Location: Left inferior. Size: 0.7 x 0.5 x 0.5 cm, volume 0.1 mL. Previously: 0.6 x 0.4 x 0.4 cm, volume 0.1 mL. Nodule characteristics: Composition: Solid/almost completely solid (2). Echogenicity: Isoechoic (1). Shape: Not taller than wide (0). Margins: Smooth (0). Echogenic Foci: None (0). ACR TI-RADS total points: 3 Previous: 3 ACR TI-RADS category: 3 Previous: 3 Significant change in size (>/= 20% in 2 dimensions and minimal increase of 2 mm or 50% or greater increase in volume): No change. Change in features: No change. Change in ACR TI-RADS risk category: No change. NODES: No lymphadenopathy is seen in the tissue surrounding the thyroid gland. US/US thyroid IMPRESSION: Slightly heterogeneous thyroid gland without increased vascularity. Multiple thyroid nodules are stable compared to previous exam 02/14/2021. ACR TI-RADS RECOMMENDATION REFERENCE: Ultrasound-guided fine-needle aspiration, followup ultrasound, no further follow up. * TR1 (0 point) and TR 2 (2 points): No FNA or follow up * TR3 (3 points): FNA if more than or equal to 2.5 cm in maximum dimension, followup ultrasound in 1, 3 and 5 years if 1.5 to 2.4 cm in maximum dimension. * TR4 (4-6 points): FNA if more than or equal to 1.5 cm in maximum dimension, followup ultrasound in 1, 2, 3 and 5 years if 1 to 1.4 cm in maximum dimension. * TR5 (more than or equal to 7 points): FNA if more than or equal to 1 cm in maximum dimension, followup ultrasound every year for 5 years if 0.5 to 0.9 cm in maximum dimension. * TR3, TR4 or TR5 nodules that are below the size threshold for follow up receive no follow up.
== END 2022-04-29 12:59 | disposition home or self-care (01) ==
LOC: HO.US 12:58
PROVIDERS: PCP Internal Medicine; Visit Provider Internal Medicine
DX: E04.2 Nontoxic multinodular goiter (principal)
CPT/HCPCS: 76536

== ENCOUNTER → 2022-05-30 09:37 | Outpatient (REF) | payer OTHER, SELFPAY ==
--- NOTE | 2022-05-30 09:40 | CA_ITS ---
Transthoracic Echocardiogram Patient (Last, First, Middle): Rosie Guzman A Gender: Female Date of : 1965 Age: 57 Procedure Date: 05/30/2022 Procedure Type: Transthoracic Echocardiogram Location: OP Height: 167.64 cm Weight: 106.6 kg BSA: 2.14 m2 Heart Rate: 79 bpm BP: 130 / 75 mmHg Online Journalist: TIA Referring MD: Malinda Tate MD Symptoms: R01.1 - Cardiac murmur, unspecified Study Quality: Fair/Contrast ECG Rhythm: Sinus Conclusions: - Normal left ventricular cavity size. There is mildly increased left ventricular wall thickness. The left ventricular systolic function is hyperdynamic. The visually estimated ejection fraction is >70%. There is no evidence of regional wall motion abnormalities. Diastolic function is normal for age. - Normal right ventricular cavity size and systolic function. - There is mild dilatation of the ascending aorta measuring 3.50 cm. Findings Procedure Information Contrast agent, definity, is being given per protocol without apparent complications. Left Ventricle Normal left ventricular cavity size. There is mildly increased left ventricular wall thickness. The left ventricular systolic function is hyperdynamic. The visually estimated ejection fraction is >70%. There is no evidence of regional wall motion abnormalities. Diastolic function is normal for age. Right Ventricle Normal right ventricular cavity size and systolic function. Atria Both atria are normal in size. Aortic Valve Normal aortic valve structure and function. There is no aortic valve stenosis. There is no aortic valve regurgitation. Mitral Valve There is moderate mitral annular calcification. There is trace mitral valve regurgitation. There is no mitral valve stenosis. Pulmonic Valve Normal pulmonic valve structure and function. There is no pulmonic valve regurgitation. Tricuspid Valve Normal tricuspid valve structure and function. There is trace tricuspid valve regurgitation. Normal right atrial pressure. There is no evidence of pulmonary hypertension. Great Vessels There is mild dilatation of the ascending aorta measuring 3.50 cm. The visualized portions of the pulmonary artery and branches are normal. Venous The inferior vena cava is normal in size and collapses greater than 50% with inspiration. Pericardium/Pleural There is no evidence of pericardial effusion. Prior Study Comparison Changes noted compared to prior study dated: 07/15/2019. Mild dilation of ascending aorta. Measurements 2D Linear Measurements IVSd: 1.28 0.6-0.9/0.6-1.0 cm LVIDd: 4.65 3.9-5.3/4.2-5.9 cm LVIDd Index: 2.17 2.4-3.2/2.2-3.1 cm/m2 LVIDs: 2.31 2.0-3.6 cm LVPWd: 0.98 0.7-1.1 cm LA Diam: 3.50 2.7-3.8/3.0-4.0 cm LAIDs Index: 1.64 1.5-2.3 cm/m2 LV Mass: 238.72 67-162/88-224 g LV Mass Index: 111.55 43-95/49-115 g/m2 LVOT Diam: 1.80 3.0+(-)1.3 cm 2D Systolic Function EF 4C: 70.40 >55% EF 2C: 73.10 >55% EF BiP: 71.90 >55% Mitral Valve MV Pk E: 0.80 MV PK A: 0.87 MV Decel Time: 205.00 E/A: 0.90 E'Lateral: 10.70 E'Medial: 9.79 E/E' Med: 8.20 E/E' Lat: 7.50 PHT: 60.00 MVA PHT: 3.67 Decel Grundy: 3.91 Aortic Valve AoV Pk Jourdan: 1.34 AoV Mn Jourdan: 0.94 AoV VTI: 0.26 AoV Pk Grad: 7.00 Aov Mn Grad: 4.00 ARNAUD Cont.VTI: 2.38 LVOT LVOT Pk Jourdan: 1.27 LVOT Mn Jourdan: 0.87 LVOT VTI: 0.25 LVOT Pk Grad: 6.00 LVOT Mn Grad: 3.00 LVOT Diam: 1.80 LVOT Area: 2.54 Diastolic Function MV Pk E: 0.80 MV Pk A: 0.87 E/A: 0.90 E'Medial: 9.79 E/E' Med: 8.20 E' Laterial: 10.70 E/E' Lat: 7.50 Right Ventricle TAPSE (mm): 15.30 TVS' Jourdan: 9.68 Tricuspid Valve TR Pk Jourdan: 2.20 TR Pk Grad: 19.00 RA Press: 3.00 RVSP: 22.00 Great Vessels Aorta Sinus of Valsalva: 3.10 2.0-3.5 cm Ao Asc: 3.50 2.1-3.4 cm Pulmonary Valve PV Pk Jourdan: 0.89 Peak PV Grad: 3.00 Updated in Other Vendor System with Status of Final Jani Angel MD electronically signed on 06/01/2022 4:44:00 PM with status of Final
== END ==
LOC: HO.CARD 09:37
PROVIDERS: PCP Internal Medicine; Visit Provider Internal Medicine
DX: R01.1 Cardiac murmur, unspecified (principal)
CPT/HCPCS: 93306; Q9957

== ENCOUNTER → 2022-06-06 13:35 | Outpatient (BNVA) | payer OTHER, SELFPAY | PROVIDERS: PCP Internal Medicine; Visit Provider Internal Medicine Endocrinology, Diabetes & Metabolism | DX: E21.0 Primary hyperparathyroidism (principal); E11.65 Type 2 diabetes mellitus with hyperglycemia; E04.2 Nontoxic multinodular goiter | CPT/HCPCS: 82947 ==

== ENCOUNTER → 2022-06-20 08:56 | Outpatient (BNVA) | payer OTHER, SELFPAY | PROVIDERS: PCP Internal Medicine; Visit Provider Dietitian, Registered | DX: E11.65 Type 2 diabetes mellitus with hyperglycemia (principal) | CPT/HCPCS: 97803 ==

== ENCOUNTER 2022-09-05 09:13 | Outpatient (REF) | payer OTHER, SELFPAY ==
--- NOTE | ~2022-09-05 | MM_ITS ---
EXAMINATION: MM SCREENING DIGITAL BREAST TOMOSYNTHESIS, BILATERAL CLINICAL INFORMATION: Screening. Asymptomatic. The lifetime risk of breast cancer based on the Tyrer-Cuzick Model is 10%. COMPARISON: Mammography: 08/23/2021, 07/27/2020, 07/22/2019 TECHNIQUE: Digital breast tomosynthesis is performed in both the craniocaudal and mediolateral oblique views along with computer-aided detection (CAD). Synthesized 2D images are generated from the tomosynthesis. FINDINGS: There are scattered areas of fibroglandular density (ACR BI-RADS breast composition Category b). Breast tissue composition borders on predominantly fatty. There are no significant masses, abnormal calcifications, or other abnormalities. Background stromal and fibroglandular densities are similar to prior studies. No developing density or architectural abnormality. No significant changes. MM/MM tomosynthesis screening BI IMPRESSION: No mammographic evidence of malignancy. ASSESSMENT: BI-RADS 1: Negative RECOMMENDATION: Routine annual mammography screening. This patient's information was entered into a reminder system with a target due date for their next mammogram.
== END 2022-09-05 09:14 | disposition home or self-care (01) ==
LOC: HO.MAMMO 09:13
PROVIDERS: PCP Internal Medicine; Visit Provider Internal Medicine
DX: Z12.31 Encounter for screening mammogram for malignant neoplasm of breast (principal)
CPT/HCPCS: 77063; 77067

== ENCOUNTER 2022-09-08 06:50 | Outpatient (REF) | payer OTHER, SELFPAY ==
[2022-09-08 08:19] LABS: B Type Natriuretic Peptide 14 pg/mL (<100)
[2022-09-08 08:55] LABS: Creatinine Urine 122.95 mg/dL; Microalbum/Creatinine Ratio Ur 11.3 ug/mg cr
[2022-09-08 08:56] LABS: Alanine Aminotransferase 23 U/L (0-31); Albumin Level 4.3 g/dL (3.5-5.0); Alkaline Phosphatase 102 U/L (39-117); Anion Gap 18 (12-20); Aspartate Amino Transferase 20 U/L (5-31); Bilirubin Total 0.4 mg/dL (0.0-1.0); Blood Urea Nitrogen 15 mg/dL (9-16); Calcium 9.9 mg/dL (8.4-10.2); Carbon Dioxide 24 mmol/L (22-29); Chloride 104 mmol/L (96-108); Cholesterol 171 mg/dL; Estimated Glomerular Filt Rate 53; Glucose Fasting 111 mg/dL (60-99); HDL Cholesterol 63 mg/dL; LDL Cholesterol Calculated 83 mg/dl; Potassium 4.6 mmol/L (3.3-5.1); Sodium 141 mmol/L (135-145); Total Protein 6.8 g/dL (6.5-8.0); Triglycerides 129 mg/dL; Vitamin D 25-OH Total 38.2 ng/mL (>30)
== END 2022-09-08 06:51 | disposition home or self-care (01) ==
LOC: HO.LAB 06:50
PROVIDERS: PCP Internal Medicine; Visit Provider Internal Medicine
DX: E11.65 Type 2 diabetes mellitus with hyperglycemia (principal); E04.2 Nontoxic multinodular goiter; R06.09 Other forms of dyspnea; E55.9 Vitamin D deficiency, unspecified; E78.5 Hyperlipidemia, unspecified
CPT/HCPCS: 36415; 80053; 80061; 82043; 82306; 83880; 84443

== ENCOUNTER 2023-04-30 06:06 | Outpatient (REF) | payer OTHER, SELFPAY ==
[2023-04-30 08:09] LABS: Creatinine Urine 93.25 mg/dL; Microalbum/Creatinine Ratio Ur 7.5 ug/mg cr
[2023-04-30 08:14] LABS: Alanine Aminotransferase 33 U/L (0-31); Alkaline Phosphatase 88 U/L (39-117); Anion Gap 13 (12-20); Aspartate Amino Transferase 22 U/L (5-31); Bilirubin Total 0.3 mg/dL (0.0-1.0); Blood Urea Nitrogen 13 mg/dL (9-16); Calcium 9.3 mg/dL (8.4-10.2); Carbon Dioxide 28 mmol/L (22-29); Chloride 106 mmol/L (96-108); Cholesterol 143 mg/dL; Estimated Glomerular Filt Rate 60; Glucose Fasting 120 mg/dL (60-99); HDL Cholesterol 56 mg/dL; LDL Cholesterol Calculated 68 mg/dl; Potassium 4.5 mmol/L (3.3-5.1); Sodium 142 mmol/L (135-145); Total Protein 6.9 g/dL (6.5-8.0); Triglycerides 98 mg/dL
[2023-04-30 08:31] LABS: Vitamin D 25-OH Total 49.4 ng/mL (>30)
== END 2023-04-30 06:07 | disposition home or self-care (01) ==
LOC: HO.LAB 06:06
PROVIDERS: PCP Internal Medicine; Visit Provider Internal Medicine
DX: E55.9 Vitamin D deficiency, unspecified (principal); E11.9 Type 2 diabetes mellitus without complications; E78.5 Hyperlipidemia, unspecified
CPT/HCPCS: 36415; 80053; 80061; 82043; 82306

== ENCOUNTER 2023-05-05 08:28 | Outpatient (AMB) | payer OTHER, SELFPAY ==
--- NOTE | 2023-05-05 08:30 | A.OFFPC_ITS ---
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 Accompanied by: Self / Same As Patient Allergies No Known Allergies [No Known Allergies*] Allergy (Verified 05/05/23 08:45) Medication List - Last Reconciled 05/05/23 by Malinda Tate MD acetylcysteine (NAC) mg PO aripiprazole 2 mg PO DAILY aripiprazole 5 mg PO DAILY aspirin (Adult Aspirin Regimen) 81 mg PO DAILY atorvastatin 40 mg PO BEDTIME 90 days blood sugar diagnostic (FreeStyle Lite Strips) twice a day blood-glucose meter (FreeStyle Lite Meter kit) As directed bupropion HCl (Wellbutrin XL) 300 mg PO QAM cholecalciferol (vitamin D3) 25 mcg PO DAILY 90 days dulaglutide (Trulicity) 0.75 mg (0.5 mL) subcut QWEEK escitalopram oxalate 10 mg PO DAILY lancets (FreeStyle Lancets) Twice a da lisinopril 5 mg PO DAILY metformin ER 1,000 mg (2 x 500 mg) PO BID omeprazole 20 mg PO DAILY 90 days ropinirole 2 mg PO BEDTIME Tobacco use date assessed: 05/05/23 HPI HPI Comments History of Present Illness Details This is a 57-year-old female with diabetes mellitus type 2 and mild recurrent major depression that comes for her physical exam. A1c within goal. Depression stable with medications and this is follow by Psychiatry. Has multinodular thyroid and last ultrasound was last year and this will be repeated. History of kidney cancer follow by Nephrology. Mammogram done August 2022. Pap smear done 2017 with negative HPV. Will be referred to OBGYN for a Pap smear. Colonoscopy done December 2021 showing hyperplastic polyp and tubular adenoma. Next colonoscopy should be done within 3-5 years. She is obese with a BMI of 37.6 and was advised to do diet and exercise as tolerated to reach BMI goal less than 30. Complains of right leg pain that started 3 weeks ago relieved by aspirin. No numbness associated with it. [facility] Medical History Cancer of right kidney Class 2 severe obesity with serious comorbidity and body mass index (BMI) of 37.0 to 37.9 in adult Class 2 severe obesity with serious comorbidity and body mass index (BMI) of 38.0 to 38.9 in adult Depression Diabetes type 2, controlled Dyslipidemia GERD (gastroesophageal reflux disease) Hypertension Left wrist pain Mild recurrent major depression Non-toxic multinodular goiter Obesity (BMI 30-39.9) Primary hyperparathyroidism Surgical History History of back surgery History of colonoscopy History of kidney surgery History of parathyroidectomy History of removal of ovarian cyst Status post fine needle aspiration Family History Father Diabetes Hypertension High cholesterol Mother Dementia Mental health disorder Social History Housing: House Alcohol intake: never Patient Tobacco Use Status: Never used Tobacco e-Cigarette/Vaping Use: Never Used Second Hand Smoke Exposure: No service: No Current occupational status: employed Current occupational exposures/hazards: No Cognitive needs: No Hearing needs: No Vision needs: No Questionnaire PHQ-9 Over the last 2 weeks, how often have you been bothered by any of the following problems? 1. Little interest or pleasure in doing things: more than half the days 2. Feeling down, depressed, or hopeless: more than half the days 3. Trouble falling or staying asleep, or sleeping too much: nearly every day 4. Feeling tired or having little energy: more than half the days 5. Poor appetite or overeating: nearly every day 6. Feeling bad about yourself - or that you are a failure or have let yourself or your family down: not at all 7. Trouble concentrating on things, such as reading the newspaper or watching television: more than half the days 8. Moving or speaking so slowly that other people could have noticed. Or the opposite - being so fidgety or restless that you have been moving around a lot more than usual: more than half the days 9. Thoughts that you would be better off or of hurting yourself in some way: not at all Total score: 16 Depression Screening Interpretation: Positive Depression Screening Follow-up: Existing condition, In treatment and Community Mental Health Worker F/U 86611 - PHQ-9 Billing: Yes Source: Developed by Drs. Rubens Langston, Mary Fritz, Taiwo Puri and colleagues, with an educational aurora from [employer]. Thrive Questionnaire Date Thrive assessed: 05/05/23 I am a: Patient What is your living situation today?: I have a steady place to live Within the past 12 months, did the food you bought not last and you didn't have the money to get more?: Sometimes True Within the past 12 months, did you worry whether your food would run out before you got money to buy more?: Sometimes True Do you have trouble paying for medicines?: No Do you have trouble getting transportation to medical appointments?: No Do you have trouble paying your heating and electricity bill?: Yes Do you have trouble taking care of your child, family member or friend?: No Do you have trouble with day-to-day activities such as bathing, preparing meals, shopping, managing finances, etc.?: No Are you currently unemployed and looking for a job?: No Are you interested in more education?: No AUDIT C Alcohol Use Questionnaire (AUDIT-C) 1. How often do you have a drink containing alcohol?: Never 3. How often do you have six or more drinks on one occasion?: Never Total Score: 0 Score Reviewed/Action Taken: No AMRIT-7 AMB Questionnaire AMRIT-7 Date AMRIT - 7 assessed: 05/05/23 Feeling nervous, anxious, or on edge: 2 = More than half the days Not being able to stop or control worryin = Not at all Worrying too much about different things: 0 = Not at all Trouble relaxin = More than half the days Being so restless that it is hard to sit still: 2 = More than half the days Becoming easily annoyed or irritable: 2 = More than half the days Feeling afraid as if something awful might happen: 0 = Not at all Total AMRIT-7 score (0-4 normal; 5-9 mild; 10-14 moderate; 15-21 severe): 8 Source: Developed by Drs. Rubens Langston, Taiwo Finch and colleagues, with an educational aurora from [employer]. AMRIT-7 Assessment Billing AMRIT-7 Assessment Tool: AMRIT-7 Assessment 73019 Review of Systems Const All systems reviewed & are unremarkable except as noted in HPI and below Eyes Reports no additional complaints, Denies change in vision and Denies other visual disturbances Card Denies chest pain at rest, Denies chest pain with activity, Denies edema, Denies irregular heart rhythm, Denies claudication, Denies dyspnea, Denies dyspnea on exertion, Denies orthopnea, Denies paroxysmal nocturnal dyspnea and Denies slow heart rate Resp Denies cough, Denies dyspnea and Denies dyspnea on exertion GI Denies abdominal pain, Denies change in bowel habits, Denies excessive flatus, Denies nausea and Denies vomiting Reports hematuria, Denies urinary incontinence, Denies urinary hesitancy and Denies urinary urgency Musc Denies abnormal gait, Denies atrophy, Denies deformity, Reports arthralgias and Denies limited range of motion Skin/Breast Denies bleeding lesions, Denies changing lesions and Denies rash Neuro Denies abnormal gait and Denies lack of coordination Physical exam (Primary Care) Vital Signs: Last Vital Signs Pulse 76 05/05/23 08:32 BP 138/74 05/05/23 08:32 Pulse Ox 98 05/05/23 08:32 Oxygen Delivery Method Room Air 05/05/23 08:32 BMI result Body Mass Index 37.6 Tobacco/Smoking Status: Tobacco use Status Tobacco use date assessed 05/05/23 05/05/23 08:40 Patient Tobacco Use Status Never used Tobacco 05/05/23 08:31 e-Cigarette/Vaping Use Never Used 05/05/23 08:31 PHQ-9: PHQ-9 Score PHQ-9: Total score 16 05/05/23 09:15 Depression Screening Interpretation: Positive Depression Screening Follow-up: Existing condition, In treatment and Community Mental Health Worker F/U Thrive Assessment: Date of Thrive Assessment Date Thrive assessed 05/05/23 05/05/23 08:40 Const Orientation/consciousness: patient oriented x3 HENMT Head: Yes normal to inspection, Yes normocephalic and Yes atraumatic Ears: external ears normal Eyes General: appearance normal, both eyes and all related structures Eyelids: Yes eyelids normal Conjunctivae: conjunctivae normal Neck Neck: Yes normal visual inspection and Yes supple Resp Effort & Inspection: normal respiratory effort Auscultation: clear to auscultation bilaterally Cardio Jugular venous distension: no JVD Rate: regular rate Rhythm: regular rhythm Heart sounds: S1 normal heart sound present and S2 normal heart sound present GI Inspection: Yes normal to inspection Palpation (GI): Soft to palpation and nontender Auscultation: normal bowel sounds Skin General skin exam: no rashes or lesions noted Neuro General: patient oriented x3 and no focal motor deficits Extrem Other: Los's sign negative in right leg General: Yes full ROM Psych Appearance: grossly normal Results AMB Hemoglobin A1c AMB Hemoglobin A1c 6.6 % Last Edit by Reny Camacho MA on 05/05/23 08:41 AMB Urinalysis, Automated UA Leukoctes 1 René/uL Last Edit by Hellen Braga on 05/05/23 09:17 UA Nitrite Negative Last Edit by Hellen Braga on 05/05/23 09:17 UA Urobilinogen 0 mg/dL Last Edit by Hellen Braga on 05/05/23 09:17 UA Protein 0 mg/dL Last Edit by Hellen Braga on 05/05/23 09:17 UA pH 5.5 Last Edit by Hellen Braga on 05/05/23 09:17 UA Blood 3 Stuart/uL Last Edit by Hellen Braga on 05/05/23 09:17 UA Specific [place] 1.030 Last Edit by Hellen Braga on 05/05/23 09:17 UA Ketone Negative Last Edit by Hellen Braga on 05/05/23 09:17 UA Bilirubin 0 mg/dL Last Edit by Hellen Braga on 05/05/23 09:17 UA Glucose 0 mg/dL Last Edit by Hellen Braga on 05/05/23 09:17 Results Reviewed Results Reviewed: Laboratory Last Values Hgb A1c (Clinic) 6.6 % (4.0-6.0) H 05/05/23 08:40 Urine pH (Auto) 5.5 05/05/23 09:13 Specific [place] (Auto) 1.030 05/05/23 09:13 Urine Protein (Auto) 0 mg/dL 05/05/23 09:13 Glucose (UA)(Auto) 0 mg/dL 05/05/23 09:13 Urine Ketones (Auto) Negative 05/05/23 09:13 Urine Blood (Auto) 3 Stuart/uL 05/05/23 09:13 Urine Nitrite (Auto) Negative 05/05/23 09:13 Urine Bilirubin (Auto) 0 mg/dL 05/05/23 09:13 Urine Urobilinogen (Auto) 0 mg/dL 05/05/23 09:13 Leukocyte Esterase (Auto) 1 René/uL 05/05/23 09:13 Assessment and Plan Assessment & Plan (1) Physical exam: Code(s): Z00.00 - Encounter for general adult medical examination without abnormal findings Plan: Repeat in a year (2) Mild recurrent major depression: Code(s): F33.0 - Major depressive disorder, recurrent, mild Plan: Continue Abilify. Follow-up with psychiatry. (3) Diabetes mellitus: Code(s): E11.9 - Type 2 diabetes mellitus without complications Plan: Continue metformin. Replace Trulicity with Ozempic. A1c goal is equal or less than 7% Orders: Orders XR KUB Today R31.9 - Hematuria, unspecified US thyroid Today E04.2 - Nontoxic multinodular goiter US venous duplex LE RT Today M79.605 - Pain in left leg Vitamin B12 and Folate 5 Months E53.8 - Deficiency of other specified B group vitamins Vitamin D 25-OH Total 5 Months E55.9 - Vitamin D deficiency, unspecified Lipid Panel 5 Months E78.5 - Hyperlipidemia, unspecified Microalbumin, Random (w Creat) 5 Months E11.9 - Type 2 diabetes mellitus without complications Comprehensive [place]. Panel Fast 5 Months E11.9 - Type 2 diabetes mellitus without complications Urine Culture Today R31.9 - Hematuria, unspecified AMB Hemoglobin A1c Today E11.9 - Type 2 diabetes mellitus without complications AMB Urinalysis Automated Today Z13.9 - Encounter for screening, unspecified Referrals DIVISION OPERATIONS MANAGER Referral Z12.4 - Encounter for screening for malignant neoplasm of cervix Medications: New semaglutide (Ozempic) for 4 weeks 0.25 mg (0.368 mL) subcut QWEEK 1.84 mL 5RF 30 days E11.9 - Type 2 diabetes mellitus without complications blood-glucose meter (FreeStyle Lite Meter kit) As directed 1 ea 0RF E11.9 - Type 2 diabetes mellitus without complications Discontinued dulaglutide (Trulicity) Discontinued Reason: Patient Completed Course 0.75 mg (0.5 mL) subcut QWEEK 2 mL 5RF Coding Level of Care Code Est Pt Prev Care 40-64y(43933) Diagnoses Physical exam Z00.00 Mild recurrent major depression F33.0 Diabetes mellitus E11.9 Additional Codes AMRIT-7 Assessment Billing - AMRIT-7 Assessment Tool: AMRIT-7 Assessment [id number] ([id number]) Time Spent (min) 33
[2023-05-05 08:32] VITALS: BP 138/74; PULSE 76; O2SAT 98; BMI 37.6
== END 2023-05-05 09:34 | disposition home or self-care (01) ==
PROVIDERS: Visit Provider Internal Medicine
DX: Z00.00 Encounter for general adult medical examination without abnormal findings (principal); F33.0 Major depressive disorder, recurrent, mild; E11.9 Type 2 diabetes mellitus without complications
CPT/HCPCS: 81003; 83036; 99396

== ENCOUNTER 2023-05-05 09:30 | Outpatient (REF) | payer OTHER, SELFPAY ==
--- NOTE | ~2023-05-05 | XR_ITS ---
EXAMINATION: XR ABDOMEN KUB CLINICAL INDICATION: Hematuria, blood in urine COMPARISON: renal ultrasound 04/08/2019 TECHNIQUE: 2 AP views of the abdomen. FINDINGS: Nonobstructive bowel gas pattern. Moderate amount of stool in the colon. Visualization of the bilateral kidneys is limited due to overlying bowel. No definitive renal calculi identified, although visualization limited due to overlying bowel. Degenerative changes in the lumbar spine. Tiny pelvic calcifications are likely vascular. XR/XR KUB IMPRESSION: No definitive renal calculi identified, although visualization limited due to overlying bowel.
--- NOTE | ~2023-05-05 | US_ITS ---
EXAMINATION: US THYROID CLINICAL INFORMATION: Nontoxic multinodular goiter. COMPARISON: Ultrasound soft tissue head/neck thyroid dated 04/29/2022. TECHNIQUE: Linear transducer grayscale and color Doppler examination with attention to the region of the thyroid. FINDINGS: SIZE: Measurements of the thyroid lobes and nodules are given in sagittal, anteroposterior and transverse dimensions respectively. Right Thyroid Lobe: 4.7 x 1.9 x 1.4 cm, volume 6.7 mL. Previously 3.7 x 1.4 x 1.2 cm, volume 3.5 mL. Parenchyma: The gland echotexture is homogeneous. Thyroid vascularity is increased. Left Thyroid Lobe: 4.2 x 1.3 x 1.4 cm, volume 4.1 mL. Previously 3.6 x 1.5 x 1.3 cm, volume 3.6 mL. Parenchyma: The gland echotexture is homogeneous. Thyroid vascularity is increased. Isthmus: 0.24 cm in maximum AP dimension. Previously 0.4 cm. Estimated total number of nodules greater than or equal to 1 cm: 3. Steam Pressure Chamber Operator nodules are described as follows: 1. Location: Right mid. Size: 0.94 x 1.2 x 0.6 cm, volume 0.4 mL. Previously: 1.0 x 0.6 x 1.0 cm, volume 0.3 mL. Nodule characteristics: Composition: Solid/almost completely solid (2). Echogenicity: Isoechoic (1). Shape: Not taller than wide (0). Margins: Smooth (0). Echogenic Foci: None (0). ACR TI-RADS total points: 3 Previous: 3 ACR TI-RADS category: 3 Previous: 3 Significant change in size (>/= 20% in 2 dimensions and minimal increase of 2 mm or 50% or greater increase in volume): No Change in features: No Change in ACR TI-RADS risk category: No 2. Location: Left mid. Size: 1.6 x 0.6 x 1.1 cm, volume 0.6 mL. Previously: 1.5 x 0.4 x 0.7 cm, volume 0.2 mL. Nodule characteristics: Composition: Solid/almost completely solid (2). Echogenicity: Hypoechoic (2). Shape: Not taller than wide (0). Margins: Smooth (0). Echogenic Foci: None (0). ACR TI-RADS total points: 4 Previous: 4 ACR TI-RADS category: 4 Previous: 4 Significant change in size (>/= 20% in 2 dimensions and minimal increase of 2 mm or 50% or greater increase in volume): Yes Change in features: No Change in ACR TI-RADS risk category: No 3. Location: Left inferior. Size: 0.8 x 0.5 x 1.2 cm, volume 0.23 mL. Previously: 1.3 x 0.5 x 0.8 cm, volume 0.3 mL. Nodule characteristics: Composition: Solid/almost completely solid (2). Echogenicity: Hypoechoic (2). Shape: Not taller than wide (0). Margins: Smooth (0). Echogenic Foci: None (0). ACR TI-RADS total points: 4 Previous: 3 ACR TI-RADS category: 4 Previous: 3 Significant change in size (>/= 20% in 2 dimensions and minimal increase of 2 mm or 50% or greater increase in volume): No Change in features: Yes. Cystic component is not well seen, mostly solid and hypoechoic in the current study. Change in ACR TI-RADS risk category: Yes NODES: No lymphadenopathy is seen in the tissue surrounding the thyroid gland. US/US thyroid IMPRESSION: Again noted hypervascular thyroid gland with multiple nodules, examples as follow: 1. Right mid gland 1.2 cm TR 3 nodule, stable. Attention on follow-up by imaging is recommended. 2. Left mid gland 1.6 cm TR 4 nodule, increased in size. If not previously obtained correlation with FNA is recommended. 3. Left inferior gland 1.2 cm TR 4 nodule, similar in size now mostly solid and hypoechoic. Attention on follow-up imaging is recommended. ACR TI-RADS RECOMMENDATION REFERENCE: Ultrasound-guided fine-needle aspiration, follow up ultrasound, no further followup. * TR1 (0 point) and TR2 (2 points): No FNA or followup * TR3 (3 points): FNA if more than or equal to 2.5 cm in maximum dimension, follow up ultrasound in 1, 3 and 5 years if 1.5 to 2.4 cm in maximum dimension. * TR4 (4-6 points): FNA if more than or equal to 1.5 cm in maximum dimension, follow up ultrasound in 1, 2, 3 and 5 years if 1 to 1.4 cm in maximum dimension. * TR5 (more than or equal to 7 points): FNA if more than or equal to 1 cm in maximum dimension, follow up ultrasound every year for 5 years if 0.5 to 0.9 cm in maximum dimension. * TR3, TR4 or TR5 nodules that are below the size threshold for follow up receive no followup.
--- NOTE | ~2023-05-05 | US_ITS ---
EXAMINATION: US VENOUS ULTRASOUND WITH DOPPLER LOWER EXTREMITY, RIGHT CLINICAL INFORMATION: Right leg pain COMPARISON: None available. TECHNIQUE: Ultrasound of the deep veins is performed from the hip to the calf with compression sonography and color and pulse Doppler assessment. Spectral analysis with color-flow imaging is performed. FINDINGS: There is normal venous compression and respiratory variation and augmented flow. The visualized common femoral vein, superficial femoral vein, profunda femoral vein, popliteal vein, and the trifurcation region shows no evidence of deep venous thrombosis. Within the popliteal fossa, 1.9 x 0.6 x 1.3 cm avascular fluid collection is seen. If the patient's symptoms persist, followup ultrasound in 5 days 7 days might be of value to exclude proximal propagation from a non-visualized calf vein. US/US venous duplex LE RT IMPRESSION: No DVT demonstrated in the right lower extremity. 1.9 cm right Tan's cyst.
== END 2023-05-05 09:31 | disposition home or self-care (01) ==
LOC: HO.US 09:30
PROVIDERS: PCP Internal Medicine; Visit Provider Internal Medicine
DX: E04.2 Nontoxic multinodular goiter (principal); R31.9 Hematuria, unspecified; M79.605 Pain in left leg
CPT/HCPCS: 74018; 76536; 87086; 93971

== ENCOUNTER 2023-09-29 07:31 | Outpatient (REF) | payer OTHER, SELFPAY ==
[2023-09-29 09:02] LABS: Alanine Aminotransferase 34 U/L (0-31); Albumin Level 4.3 g/dL (3.5-5.0); Alkaline Phosphatase 85 U/L (39-117); Anion Gap 14 (12-20); Aspartate Amino Transferase 24 U/L (5-31); Bilirubin Total 0.3 mg/dL (0.0-1.0); Blood Urea Nitrogen 11 mg/dL (9-16); Calcium 9.3 mg/dL (8.4-10.2); Carbon Dioxide 25 mmol/L (22-29); Chloride 108 mmol/L (96-108); Cholesterol 128 mg/dL (<200); Estimated Glomerular Filt Rate 59; Glucose Fasting 111 mg/dL (60-99); HDL Cholesterol 50 mg/dL (>40); LDL Cholesterol Calculated 57 mg/dL (<100); Potassium 4.2 mmol/L (3.3-5.1); Sodium 143 mmol/L (135-145); Total Protein 7.3 g/dL (6.5-8.0); Triglycerides 108 mg/dL (<150)
[2023-09-29 09:24] LABS: Vitamin D 25-OH Total 48.1 ng/mL (>30)
[2023-09-29 09:36] LABS: Folate 14.6 ng/mL (> or = 4.0); Vitamin B12 1418 pg/mL (200-900)
[2023-09-29 10:05] LABS: Creatinine Urine 207.44 mg/dL; Microalbum/Creatinine Ratio Ur 8.1 ug/mg cr (<30)
== END 2023-09-29 07:32 | disposition home or self-care (01) ==
LOC: HO.LAB 07:31
PROVIDERS: PCP Internal Medicine; Visit Provider Internal Medicine
DX: E53.8 Deficiency of other specified B group vitamins (principal); E55.9 Vitamin D deficiency, unspecified; E78.5 Hyperlipidemia, unspecified; E11.9 Type 2 diabetes mellitus without complications
CPT/HCPCS: 36415; 80053; 80061; 82043; 82306; 82570; 82607; 82746

== ENCOUNTER 2023-10-05 08:03 | Outpatient (AMB) | payer OTHER, SELFPAY ==
--- NOTE | 2023-10-05 08:11 | A.OFFPC_ITS ---
Vital Signs 10/05/23 08:15 Height 5 ft 7 in Weight 230 lb BMI 36.0 BP 112/70 Blood Pressure Location Lt brachial Position Sitting Intake Visit Reasons: 5 month f/u Intake Note: Patient here for a 5 month follow up Cigarette Lighter Repairer Required: No Accompanied by: Self / Same As Patient Allergies No Known Allergies [No Known Allergies*] Allergy (Verified 10/05/23 08:24) Medication List - Last Reconciled 10/05/23 by Malinda Tate MD aripiprazole 5 mg PO DAILY aspirin (Adult Aspirin Regimen) 81 mg PO DAILY atorvastatin 40 mg PO BEDTIME 90 days blood sugar diagnostic (FreeStyle Lite Strips) once a day blood-glucose meter (FreeStyle Lite Meter kit) As directed bupropion HCl (Wellbutrin XL) 300 mg PO QAM cholecalciferol (vitamin D3) 25 mcg PO DAILY 90 days escitalopram oxalate 10 mg PO DAILY gabapentin 400 mg PO BEDTIME lancets (FreeStyle Lancets) once a day lisinopril 5 mg PO DAILY metformin ER 1,000 mg (2 x 500 mg) PO BID omeprazole 20 mg PO DAILY 90 days ropinirole 2 mg PO BEDTIME semaglutide (Ozempic) 1 mg (0.75 mL) subcut QWEEK 90 days Tobacco use date assessed: 10/05/23 Dental Screening Dental Screen Date: 10/05/23 Did you have a dental visit in the last 12 months?: Yes Did you have a dental problem in the last 6 months where you did not have access to dental care?: No Was dental information given to patient?: Patient has dentist HPI HPI Comments History of Present Illness Details This is a 58-year-old female with mild major depression, diabetes mellitus type 2, GERD and dyslipidemia that comes today for follow-up on her conditions. Major depression has been stable with Abilify and this is follow by Psychiatry. A1c within goal. GERD stable with PPIs as needed. LDL within g oal. She denies any chest pain or shortness of breath. [facility] Medical History (Updated 10/05/23 @ 09:41 by Malinda Tate MD) Class 2 severe obesity with serious comorbidity and body mass index (BMI) of 37.0 to 37.9 in adult GERD (gastroesophageal reflux disease) Mild recurrent major depression Class 2 severe obesity with serious comorbidity and body mass index (BMI) of 38.0 to 38.9 in adult Cancer of right kidney Left wrist pain Obesity (BMI 30-39.9) Depression Non-toxic multinodular goiter Hypertension Dyslipidemia Diabetes type 2, controlled Primary hyperparathyroidism Surgical History Status post fine needle aspiration History of colonoscopy History of kidney surgery History of parathyroidectomy History of removal of ovarian cyst History of back surgery Family History Father Diabetes Hypertension High cholesterol Mother Dementia Mental health disorder Social History Housing: House Alcohol intake: never Patient Tobacco Use Status: Never used Tobacco e-Cigarette/Vaping Use: Never Used Second Hand Smoke Exposure: No service: No Current occupational status: employed Current occupational exposures/hazards: No Cognitive needs: No Hearing needs: No Vision needs: No Questionnaire PHQ-9 Over the last 2 weeks, how often have you been bothered by any of the following problems? 1. Little interest or pleasure in doing things: several days 2. Feeling down, depressed, or hopeless: nearly every day 3. Trouble falling or staying asleep, or sleeping too much: more than half the days 4. Feeling tired or having little energy: several days 5. Poor appetite or overeating: nearly every day 6. Feeling bad about yourself - or that you are a failure or have let yourself or your family down: not at all 7. Trouble concentrating on things, such as reading the newspaper or watching television: not at all 8. Moving or speaking so slowly that other people could have noticed. Or the opposite - being so fidgety or restless that you have been moving around a lot more than usual: several days 9. Thoughts that you would be better off or of hurting yourself in some way: not at all Total score: 11 Depression Screening Interpretation: Positive Depression Screening Follow-up: Existing condition, In treatment and Community Mental Health Worker F/U Depression Screening Done: Yes 10511 - PHQ-9 Billing: Yes Source: Developed by Drs. Rubens Langston, Mary Fritz, Taiwo Puri and colleagues, with an educational aurora from [employer]. Thrive Questionnaire Date Thrive assessed: 10/05/23 I am a: Patient What is your living situation today?: I have a steady place to live Within the past 12 months, did the food you bought not last and you didn't have the money to get more?: Never true Within the past 12 months, did you worry whether your food would run out before you got money to buy more?: Never true Do you have trouble paying for medicines?: No Do you have trouble getting transportation to medical appointments?: No Do you have trouble paying your heating and electricity bill?: No Do you have trouble taking care of your child, family member or friend?: No Do you have trouble with day-to-day activities such as bathing, preparing meals, shopping, managing finances, etc.?: No Are you currently unemployed and looking for a job?: No Are you interested in more education?: No Please select the resources that you would like help with: None AUDIT C Alcohol Use Questionnaire (AUDIT-C) 1. How often do you have a drink containing alcohol?: Never Total Score: 0 AMRIT-7 AMB Questionnaire AMRIT-7 Date AMRIT - 7 assessed: 10/05/23 Feeling nervous, anxious, or on edge: 0 = Not at all Not being able to stop or control worryin = Not at all Worrying too much about different things: 0 = Not at all Trouble relaxin = Not at all Being so restless that it is hard to sit still: 0 = Not at all Becoming easily annoyed or irritable: 0 = Not at all Feeling afraid as if something awful might happen: 0 = Not at all Total AMRIT-7 score (0-4 normal; 5-9 mild; 10-14 moderate; 15-21 severe): 0 Source: Developed by Drs. Rubens Langston, Mary Fritz, Taiwo Puri and colleagues, with an educational aurora from [employer]. AMRIT-7 Assessment Billing AMRIT-7 Assessment Tool: AMRIT-7 Assessment 36611 Review of Systems Const All systems reviewed & are unremarkable except as noted in HPI and below Eyes Reports no additional complaints, Denies change in vision and Denies other visual disturbances Card Denies chest pain at rest, Denies chest pain with activity, Denies edema, Denies irregular heart rhythm, Denies claudication, Denies dyspnea, Denies dyspnea on exertion, Denies orthopnea, Denies paroxysmal nocturnal dyspnea and Denies slow heart rate Resp Denies cough, Denies dyspnea and Denies dyspnea on exertion GI Denies abdominal pain, Denies change in bowel habits, Denies excessive flatus, Denies nausea and Denies vomiting Denies urinary incontinence, Denies urinary hesitancy and Denies urinary urgency Musc Denies abnormal gait, Denies atrophy, Denies deformity and Denies limited range of motion Skin/Breast Denies bleeding lesions, Denies changing lesions and Denies rash Neuro Denies abnormal gait, Denies behavioral changes and Denies lack of coordination Psych Denies behavioral changes Physical exam (Primary Care) Vital Signs: Last Vital Signs BP 112/70 10/05/23 08:15 BMI result Body Mass Index 36.0 Tobacco/Smoking Status: Tobacco use Status Tobacco use date assessed 10/05/23 10/05/23 08:17 Patient Tobacco Use Status Never used Tobacco 10/05/23 08:17 e-Cigarette/Vaping Use Never Used 10/05/23 08:17 PHQ-9: PHQ-9 Score PHQ-9: Total score 11 10/05/23 08:33 Depression Screening Interpretation: Positive Depression Screening Follow-up: Existing condition, In treatment and Community Mental Health Worker F/U Thrive Assessment: Date of Thrive Assessment Date Thrive assessed 10/05/23 10/05/23 08:17 Eyes General: appearance normal, both eyes and all related structures Eyelids: Yes eyelids normal Conjunctivae: conjunctivae normal Neck Neck: Yes normal visual inspection and Yes supple Resp Effort & Inspection: normal respiratory effort Auscultation: clear to auscultation bilaterally Cardio Jugular venous distension: no JVD Rate: regular rate Rhythm: regular rhythm Heart sounds: S1 normal heart sound present and S2 normal heart sound present Extrem General: Yes full ROM Results AMB Hemoglobin A1c AMB Hemoglobin A1c 6.5 % Last Edit by CHANA Guzmán on 10/05/23 08:2 5 Results Reviewed Results Reviewed: Laboratory Last Values Hgb A1c (Clinic) 6.5 % (4.0-6.0) H 10/05/23 08:17 Assessment and Plan Assessment & Plan (1) Diabetes mellitus: Code(s): E11.9 - Type 2 diabetes mellitus without complications Qualifiers: Diabetes mellitus type: type 2 Diabetes mellitus intermediate manager insulin use: without intermediate manager use Diabetes mellitus complication status: without complication Qualified Code(s): E11.9 - Type 2 diabetes mellitus without complications Plan: Continue metformin and Ozempic. A1c goal is equal or less than 7%. (2) GERD (gastroesophageal reflux disease): Code(s): K21.9 - Gastro-esophageal reflux disease without esophagitis Qualifiers: Esophagitis presence: without esophagitis Qualified Code(s): K21.9 - Gastro-esophageal reflux disease without esophagitis Plan: Continue PPIs. (3) Mild recurrent major depression: Code(s): F33.0 - Major depressive disorder, recurrent, mild Plan: Continue Abilify and bupropion. Follow-up with psychiatry. (4) Dyslipidemia: Code(s): E78.5 - Hyperlipidemia, unspecified Plan: Continue statins. LDL goal is less than 70. Orders: Orders AMB Hemoglobin A1c Today E11.9 - Type 2 diabetes mellitus without complications Lipid Panel 5 Months E78.5 - Hyperlipidemia, unspecified Vitamin B12 and Folate 5 Months E53.8 - Deficiency of other specified B group vitamins Vitamin D 25-OH Total 5 Months E55.9 - Vitamin D deficiency, unspecified Comprehensive [place]. Panel Fast 5 Months E11.9 - Type 2 diabetes mellitus without complications Microalbumin, Random (w Creat) 5 Months E11.9 - Type 2 diabetes mellitus without complications Coding Level of Care Code Est Pt Level 4 (60652) Diagnoses Type 2 diabetes mellitus without complication, without long-term current use of insulin E11.9 Diabetes mellitus type: type 2 Diabetes mellitus intermediate manager insulin use: without intermediate manager use Diabetes mellitus complication status: without complication Gastroesophageal reflux disease without esophagitis K21.9 Esophagitis presence: without esophagitis Mild recurrent major depression F33.0 Dyslipidemia E78.5 Additional Codes AMRIT-7 Assessment Billing - AMRIT-7 Assessment Tool: AMRIT-7 Assessment 98352 ([id number]) Time Spent (min) 23
[2023-10-05 08:15] VITALS: BP 112/70; BMI 36.0
== END 2023-10-05 08:37 | disposition home or self-care (01) ==
PROVIDERS: PCP Internal Medicine; Visit Provider Internal Medicine
DX: E11.69 Type 2 diabetes mellitus with other specified complication (principal); F33.0 Major depressive disorder, recurrent, mild; K21.9 Gastro-esophageal reflux disease without esophagitis; E78.5 Hyperlipidemia, unspecified
CPT/HCPCS: 83036; 96127; 99214

== ENCOUNTER 2023-10-07 08:41 | Outpatient (REF) | payer OTHER, SELFPAY | END 2023-10-07 08:42 | disposition home or self-care (01) | LOC: HO.MAMMO 08:41 | PROVIDERS: PCP Internal Medicine; Visit Provider Internal Medicine | DX: Z12.31 Encounter for screening mammogram for malignant neoplasm of breast (principal) | CPT/HCPCS: 77063; 77067 ==

== ENCOUNTER → 2023-10-07 08:45 | Outpatient (BNV) | payer OTHER, SELFPAY | PROVIDERS: PCP Internal Medicine; Visit Provider Radiology Diagnostic Radiology | DX: Z12.31 Encounter for screening mammogram for malignant neoplasm of breast (principal) | CPT/HCPCS: 77063; 77067 ==

== ENCOUNTER 2023-10-15 14:39 | Outpatient (REF) | payer OTHER, SELFPAY ==
[2023-10-23 06:33] LABS: HPV mRNA E6/E7 rflx Not Detected (Not Detected)
== END 2023-10-15 14:40 | disposition home or self-care (01) ==
LOC: HO.LNP 14:39
PROVIDERS: PCP Internal Medicine; Visit Provider Advanced Practice Midwife
DX: Z01.419 Encounter for gynecological examination (general) (routine) without abnormal findings (principal)
CPT/HCPCS: 87624; 88142

== ENCOUNTER 2023-10-15 14:39 | Outpatient (AMB) | payer OTHER, SELFPAY ==
[2023-10-15 14:46] VITALS: BP 116/66; BMI 36.0
--- NOTE | 2023-10-15 14:46 | A.OFFVIS_ITS ---
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 She is doing well with no concerns. Prone to fungal rashes under the breast currently using some medicated powder to treat. Attempting to eat a healthy diet w/vitamin D and stays active with exercise more so in the good weather. Currently not sexually active in many years, has medical issues. Denies any vaginal dryness or irritation. STI testing offered; she declined. Last pap smear; 2018. Last mammogram; report pending. Colonoscopy is UTD. Denies any family history of ovarian or colon cancer. FH-breast cancer. [facility] Medical History Class 2 severe obesity with serious comorbidity and body mass index (BMI) of 37.0 to 37.9 in adult GERD (gastroesophageal reflux disease) Mild recurrent major depression Class 2 severe obesity with serious comorbidity and body mass index (BMI) of 38.0 to 38.9 in adult Cancer of right kidney Left wrist pain Obesity (BMI 30-39.9) Depression Non-toxic multinodular goiter Hypertension Dyslipidemia Diabetes type 2, controlled Primary hyperparathyroidism Surgical History (Updated 10/15/23 @ 15:29 by Patti Garcia CNM) Status post Mohs micrographic surgery for basal cell carcinoma (BCC) Status post fine needle aspiration History of colonoscopy History of kidney surgery History of parathyroidectomy History of removal of ovarian cyst History of back surgery Family History (Updated 10/15/23 @ 15:27 by Patti Garcia CNM) Father Diabetes Hypertension High cholesterol Skin cancer Mother Dementia Mental health disorder Family/Other History of breast cancer Social History Housing: House Alcohol intake: never Patient Tobacco Use Status: Never used Tobacco e-Cigarette/Vaping Use: Never Used Second Hand Smoke Exposure: No service: No Current occupational status: employed Current occupational exposures/hazards: No Cognitive needs: No Hearing needs: No Vision needs: No Female Reproductive History Menstrual Age of menopause: 52 Total pregnancies: 0 Date of last pap smear: 05/21/18 (neg pap and hpv) Date of Mammogram: 10/07/23 Review of Systems Const All systems reviewed & are unremarkable except as noted in HPI and below Reports as per HPI Eyes Reports no additional complaints ENT Reports no additional complaints Card Reports no additional complaints Resp Reports no additional complaints GI Reports as per HPI and Reports no additional complaints Reports as per HPI Musc Reports no additional complaints Skin/Breast Reports as per HPI Neuro Reports no additional complaints Psych Reports no additional complaints Endo Reports no additional complaints Calvin/Lymph Reports no additional complaints Aller/Immun Reports no additional complaints Physical Exam Vital Signs: Last Vital Signs BP 116/66 10/15/23 14:46 BMI result Body Mass Index 36.0 Const General: cooperative, healthy appearing, no acute distress, well developed and alert Orientation/consciousness: patient oriented x3 HEENT Head: Yes normal to inspection Eyes General: appearance normal, both eyes and all related structures Neck Neck: Yes normal visual inspection Thyroid: Thyroid normal Chest Other: Small area of erythema under right breast, with powder residual. Chest palpation & inspection: normal inspection of the chest and other (no puckering, dimpling, peau de orange, retraction, discharge, masses) Breast/axilla inspection: normal inspection of the breasts Breast/axilla palpation: normal palpation of the breasts Resp Effort & Inspection: normal respiratory effort GI Inspection: Yes normal to inspection and Yes obesity Palpation (GI): Soft to palpation Rectal Exam - Female: deferred General: Yes bladder normal to palpation External Female Exam: normal external appearance and normal appearance of the urethra Speculum Exam - Vagina: normal appearance of the vagina, normal palpation, normal vaginal discharge and vagina atrophic Speculum Exam - Cervix: normal appearance of the cervix, normal palpation and Other cervical findings present (Bled with Pap) Bimanual exam- vagina & uterus: normal bimanual exam, normal palpation, uterine size normal, bladder normal to palpation, normal palpation and non-tender Bimanual Exam- Adnexa, other: no masses Skin General skin exam: no rashes or lesions noted Rashes: no rashes Neuro General: patient oriented x3 Cognition (Neuro): normal cognition Extrem General: Yes normal to inspection Psych Attitude: cooperative Thought process: Normal thought process present Assessment & Plan Assessment & Plan (1) Encounter for well woman exam with routine gynecological exam: Code(s): Z01.419 - Encounter for gynecological examination (general) (routine) without abnormal findings Plan Discussed: Current recommendations for pap smears per ASCCP guidelines. Breast awareness, periodic self breast exams and yearly mammogram. Maintain a healthy lifestyle, well balanced diet including Calcium 1,200 mg- (dietary intake preferred) and Vitamin D 600 IU daily, and routine exercise. Contact the office with any postmenopausal bleeding. Patient verbalizes understanding and agrees to the plan of care. She was given opportunity to ask questions and all questions were answered to the best of my ability. RTO in 1 year for annual supervisor spring up exam. This note is constructed using voice recognition software. While every effort has been made to ensure accuracy, edge blacker errors may have been included. Orders: Orders Pap Smear Today Z01.419 - Encounter for gynecological examination (general) (routine) without abnormal findings Coding Level of Care Code New Pt Prev Care 40-64y(49545) Diagnoses Encounter for well woman exam with routine gynecological exam Z01.419
== END 2023-10-15 15:48 | disposition home or self-care (01) ==
PROVIDERS: PCP Internal Medicine; Visit Provider Advanced Practice Midwife
DX: Z01.419 Encounter for gynecological examination (general) (routine) without abnormal findings (principal)
CPT/HCPCS: 99386

== ENCOUNTER 2024-04-29 08:37 | Outpatient (REF) | payer OTHER, SELFPAY ==
[2024-04-29 10:00] LABS: Alanine Aminotransferase 24 U/L (0-31); Albumin Level 4.3 g/dL (3.5-5.0); Alkaline Phosphatase 92 U/L (39-117); Anion Gap 14 (12-20); Aspartate Amino Transferase 21 U/L (5-31); Bilirubin Total 0.4 mg/dL (0.0-1.0); Blood Urea Nitrogen 10 mg/dL (9-16); Calcium 9.5 mg/dL (8.4-10.2); Carbon Dioxide 27 mmol/L (22-29); Chloride 104 mmol/L (96-108); Cholesterol 137 mg/dL (<200); Estimated Glomerular Filt Rate > 60; Glucose Fasting 121 mg/dL (60-99); HDL Cholesterol 54 mg/dL (>40); LDL Cholesterol Calculated 63 mg/dL (<100); Potassium 4.5 mmol/L (3.3-5.1); Sodium 140 mmol/L (135-145); Total Protein 7.3 g/dL (6.5-8.0); Triglycerides 103 mg/dL (<150)
[2024-04-29 10:16] LABS: Vitamin D 25-OH Total 56.4 ng/mL (>30)
[2024-04-29 11:06] LABS: Folate 11.3 ng/mL (> or = 4.0); Vitamin B12 758 pg/mL (200-900)
[2024-04-29 11:12] LABS: Creatinine Urine 108.85 mg/dL; Microalbum/Creatinine Ratio Ur 60.6 ug/mg cr (<30)
== END 2024-04-29 08:38 | disposition home or self-care (01) ==
LOC: HO.LAB 08:37
PROVIDERS: PCP Internal Medicine; Visit Provider Internal Medicine
DX: E11.9 Type 2 diabetes mellitus without complications (principal); E78.5 Hyperlipidemia, unspecified; E53.8 Deficiency of other specified B group vitamins; E55.9 Vitamin D deficiency, unspecified
CPT/HCPCS: 36415; 80053; 80061; 82043; 82306; 82570; 82607; 82746

== ENCOUNTER 2024-05-11 08:24 | Outpatient (AMB) | payer OTHER, SELFPAY ==
--- NOTE | 2024-05-11 08:25 | MHC.PC.OV ---
Vital Signs 05/11/24 08:26 Height 5 ft 7 in Weight 207 lb BMI 32.4 BP 120/80 Blood Pressure Location Lt brachial Position Sitting Intake Visit Reasons: Annual exam Intake Note: Patient here for an annual physical exam Manager [place] Required: No Accompanied by: Self / Same As Patient Allergies No Known Allergies [No Known Allergies*] Allergy (Verified 05/11/24 08:40) Medication List - Last Reconciled 05/11/24 by Malinda Tate MD aripiprazole 5 mg PO DAILY aspirin (Adult Aspirin Regimen) 81 mg PO DAILY atorvastatin 40 mg PO BEDTIME 90 days baclofen 20 mg PO BID blood sugar diagnostic (FreeStyle Lite Strips) once a day blood-glucose meter (FreeStyle Lite Meter kit) As directed bupropion HCl XL (Wellbutrin XL) 300 mg PO QAM cholecalciferol (vitamin D3) 25 mcg PO DAILY 90 days escitalopram oxalate 10 mg PO DAILY gabapentin 400 mg PO BEDTIME lancets (FreeStyle Lancets) once a day lisinopril 5 mg PO DAILY metformin ER 1,000 mg (2 x 500 mg) PO BID omeprazole 20 mg PO DAILY 90 days ropinirole 2 mg PO BEDTIME semaglutide (Ozempic) 1 mg (0.75 mL) subcut QWEEK 90 days Tobacco use date assessed: 10/05/23 Dental Screening Dental Screen Date: 05/11/24 Did you have a dental visit in the last 12 months?: Yes Did you have a dental problem in the last 6 months where you did not have access to dental care?: No Was dental information given to patient?: Patient has dentist HPI HPI Comments History of Present Illness Details This is a 59-year-old female with diabetes mellitus type 2, history of right kidney cancer treated with nephrectomy, mild recurrent major depression and microalbuminuria that comes for her physical exam. A1c within goal. Last diabetic eye exam was less than a year ago. Mammogram done 2023 was normal. Pap smear done 2023 was normal. Colonoscopy done 2021 showing hyperplastic polyp. LDL within goal. Elevated microalbumin and will be referred to nephrology. Had CT scan of abdomen recently showing no metastases of her right kidney and this is follow by Urology which has been in remission. Depression stable with medications and follow by Psychiatry. [facility] Medical History (Updated 05/11/24 @ 09:02 by Malinda Tate MD) Mild ascending aorta dilation Class 2 severe obesity with serious comorbidity and body mass index (BMI) of 37.0 to 37.9 in adult GERD (gastroesophageal reflux disease) Mild recurrent major depression Class 2 severe obesity with serious comorbidity and body mass index (BMI) of 38.0 to 38.9 in adult Cancer of right kidney Left wrist pain Obesity (BMI 30-39.9) Depression Non-toxic multinodular goiter Hypertension Dyslipidemia Diabetes type 2, controlled Primary hyperparathyroidism Surgical History Status post Mohs micrographic surgery for basal cell carcinoma (BCC) Status post fine needle aspiration History of colonoscopy History of kidney surgery History of parathyroidectomy History of removal of ovarian cyst History of back surgery Family History Father Diabetes Hypertension High cholesterol Skin cancer Mother Dementia Mental health disorder Family/Other History of breast cancer Social History Housing: House Alcohol intake: never Patient Tobacco Use Status: Never used Tobacco e-Cigarette/Vaping Use: Never Used Second Hand Smoke Exposure: No service: No Current occupational status: employed Current occupational exposures/hazards: No Cognitive needs: No Hearing needs: No Vision needs: No Questionnaire Thrive Questionnaire Date Thrive assessed: 10/05/23 AMRIT-7 AMB Questionnaire AMRIT-7 Date AMRIT - 7 assessed: 10/05/23 Source: Developed by Drs. Rubens Langston, Mary Fritz, Taiwo Puri and colleagues, with an educational aurora from [employer] Review of Systems Const All systems reviewed & are unremarkable except as noted in HPI and below Card Denies chest pain at rest, Denies chest pain with activity, Denies edema, Denies irregular heart rhythm, Denies claudication, Denies dyspnea, Denies dyspnea on exertion, Denies orthopnea, Denies paroxysmal nocturnal dyspnea and Denies slow heart rate Resp Denies cough, Denies dyspnea and Denies dyspnea on exertion GI Denies abdominal pain, Denies change in bowel habits, Denies excessive flatus, Denies nausea and Denies vomiting Denies urinary incontinence, Denies urinary hesitancy and Denies urinary urgency Musc Denies atrophy, Denies deformity and Denies limited range of motion Physical exam (Primary Care) Vital Signs: Last Vital Signs BP 120/80 05/11/24 08:26 BMI result Body Mass Index 32.4 Tobacco/Smoking Status: Tobacco use Status Tobacco use date assessed 10/05/23 05/11/24 08:27 Patient Tobacco Use Status Never used Tobacco 05/11/24 08:27 e-Cigarette/Vaping Use Never Used 05/11/24 08:27 Thrive Assessment: Date of Thrive Assessment Date Thrive assessed 10/05/23 05/11/24 08:27 HENWA Head: Yes normal to inspection, Yes normocephalic and Yes atraumatic Ears: external ears normal Eyes General: appearance normal, both eyes and all related structures Eyelids: Yes eyelids normal Conjunctivae: conjunctivae normal Neck Neck: Yes normal visual inspection and Yes supple Resp Effort & Inspection: normal respiratory effort Auscultation: clear to auscultation bilaterally Cardio Jugular venous distension: no JVD Rate: regular rate Rhythm: regular rhythm Heart sounds: S1 normal heart sound present and S2 normal heart sound present GI Inspection: Yes normal to inspection Palpation (GI): Soft to palpation and nontender Auscultation: normal bowel sounds Skin General skin exam: no rashes or lesions noted Neuro General: no focal motor deficits Extrem General: Yes full ROM Psych Appearance: grossly normal Results AMB Hemoglobin A1c AMB Hemoglobin A1c 6.2 % Last Edit by CHANA Guzmán on 05/11/24 08:39 Assessment and Plan Assessment & Plan (1) Physical exam: Code(s): Z00.00 - Encounter for general adult medical examination without abnormal findings Plan: Repeat in a year. (2) Diabetes mellitus: Code(s): E11.9 - Type 2 diabetes mellitus without complications Qualifiers: Diabetes mellitus type: type 2 Diabetes mellitus retirement insulin use: without retirement use Diabetes mellitus complication status: without complication Qualified Code(s): E11.9 - Type 2 diabetes mellitus without complications Plan: Continue metformin. Increase Ozempic. A1c goal is equal or less than 7%. (3) Microalbuminuria: Code(s): R80.9 - Proteinuria, unspecified Plan: Referred to nephrology. (4) Cancer of right kidney: Code(s): C64.1 - Malignant neoplasm of right kidney, except renal pelvis Plan: Follow-up with Urology. (5) Mild recurrent major depression: Code(s): F33.0 - Major depressive disorder, recurrent, mild Plan: Continue Abilify. Follow-up with psychiatry. Orders: Orders Lipid Panel 6 Months E78.5 - Hyperlipidemia, unspecified Vitamin D 25-OH Total 6 Months E55.9 - Vitamin D deficiency, unspecified Comprehensive [place]. Panel Fast 6 Months E11.9 - Type 2 diabetes mellitus without complications AMB Hemoglobin A1c Today E11.9 - Type 2 diabetes mellitus without complications Microalbumin, Random (w Creat) 6 Months E11.9 - Type 2 diabetes mellitus without complications Vitamin B12 and Folate 6 Months E53.8 - Deficiency of other specified B group vitamins Referrals Nephrology Referral R80.9 - Proteinuria, unspecified Medications: New semaglutide (Ozempic) 2 mg (0.75 mL) subcut QWEEK 4 weeks 3 mL 0RF E11.9 - Type 2 diabetes mellitus without complications Discontinued semaglutide (Ozempic) Discontinued Reason: Patient Completed Course 1 mg (0.75 mL) subcut QWEEK 90 days 9.75 mL 1RF E11.9 - Type 2 diabetes mellitus without complications Coding Level of Care Code Est Pt Prev Care 40-64y(34409) Diagnoses Physical exam Z00.00 Type 2 diabetes mellitus without complication, without long-term current use of insulin E11.9 Diabetes mellitus type: type 2 Diabetes mellitus termite treater helper insulin use: without retirement use Diabetes mellitus complication status: without complication Microalbuminuria R80.9 Cancer of right kidney C64.1 Mild recurrent major depression F33.0 Time Spent (min) 35
[2024-05-11 08:26] VITALS: BP 120/80; BMI 32.4
== END 2024-05-11 09:02 | disposition home or self-care (01) ==
PROVIDERS: PCP Internal Medicine; Visit Provider Internal Medicine
DX: Z00.00 Encounter for general adult medical examination without abnormal findings (principal); E11.9 Type 2 diabetes mellitus without complications; R80.9 Proteinuria, unspecified; C64.1 Malignant neoplasm of right kidney, except renal pelvis; F33.0 Major depressive disorder, recurrent, mild
CPT/HCPCS: 83036; 99396

== ENCOUNTER → 2024-05-18 14:15 | Outpatient (RCR) | payer OTHER, SELFPAY ==
[2020-10-05 11:42] VITALS: BP 190/91; PULSE 89; RESP 14; TEMP 36.8; O2SAT 97; BMI 38.3
[2020-10-05 12:24] LABS: MANUAL DIFF FLAG NO
[2020-10-05 12:28] LABS: Basophils Percent Auto 0.3 % (0-2); Eosinophils Absolute Auto 0.1 X10*3/uL (0.0-0.4); Eosinophils Percent Auto 0.7 % (0-4); Hematocrit 41.4 % (37-47); Hemoglobin 13.4 g/dl (12.0-16.0); Imm Gran Abs Auto 0.04 X10*3/uL (0.00-0.03); Imm Gran Pct Auto 0.4 % (0.0-0.4); Lymphocytes Absolute Auto 2.9 X10*3/uL (1.2-4.9); Lymphocytes Percent Auto 31.1 % (20-40); Mean Corpuscular HGB Conc 32.4 g/dl (31.0-35.0); Mean Corpuscular Volume 86.4 fL (80-98); Mean Platelet Volume 9.6 fL (9.4-12.3); Monocytes Absolute Auto 0.7 X10*3/uL (0.1-1.2); Monocytes Percent Auto 7.8 % (2-11); Neutrophils Absolute Auto 5.5 X10*3/uL (2.0-8.3); Neutrophils Percent Auto 59.7 % (45-73); Platelet Count 279 X10*3/uL (160-400); Red Blood Count 4.79 X10*6/uL (4.20-5.50); Red Cell Distribution Width 12.5 % (11.0-16.0); White Blood Count 9.2 X10*3/uL (4.8-10.8)
--- NOTE | 2020-10-05 12:29 | P.CNHO_ITS ---
Subjective - Subjective Chief complaint: History of kidney cancer Patient: new to practice Consult date: 10/05/20 Requesting Physician: Dr. Vasquez Primary Care Provider: Malinda Tate MD HPI - Consult Narrative Reason for consult: Right kidney cancer Narrative: Rosie Guzman is a 55 year old female who was sent for management of kidney cancer. She was diagnosed with kidney cancer in March 2019 when ultrasound of her kidney demonstrated a 3.7 x 3.5 x 3.1 cm hypoechoic solid mass in the midpole of the right kidney consistent with neoplasm. She had her urological care/surgery at [facility]. She said she underwent a laparoscopic partial nephrectomy. He was told it was stage I cancer and she is being monitored with every 6 month ultrasound alternating with CT scan. Before her cancer diagnosis she had a few months of right flank pain, after her kidney surgery her pain has resolved. She has no complaints today, she has gained some weight which she attributes to inactivity at work and also because of the COVID- 19 restrictions. She denies any fever, chills, chest pain, shortness of breath or change in bowel habits. She has had a colonoscopy at age 52 and is up-to-date on screening mamm ographies. She denies family history of kidney or any other cancer. Review of Systems - Constitutional Reports as per HPI, Reports no additional constitutional complaints - Cardiovascular Reports no additional cardiovascular complaints - Respiratory Reports no additional respiratory complaints - Gastrointestinal Reports no additional gastrointestinal complaints Oncology Screenings - ECOG Performance Status ECOG Performance Status: 0 [facility] Medical History: Medical History (Last Updated 09/27/20 @ 11:02 by Malinda Tate MD) Depression Diabetes type 2, controlled Dyslipidemia Hypertension Left wrist pain Non-toxic multinodular goiter Obesity (BMI 30-39.9) Primary hyperparathyroidism Family History: Family History (Last Reviewed 09/27/20 @ 10:09 by Malinda Tate MD) Father Diabetes Hypertension High cholesterol Mother Dementia Surgical History: Surgical History (Last Reviewed 09/27/20 @ 10:09 by Malinda Tate MD) History of back surgery History of kidney surgery History of parathyroidectomy History of removal of ovarian cyst Smoking status: Never smoker Substance use type: does not use Alcohol intake: never Home Medications and Allergies Home Medications Medication Instructions Recorded Confirmed Type amitriptyline 10 mg tablet 10 mg PO DAILY 06/29/20 10/05/20 History aripiprazole 5 mg tablet 5 mg PO DAILY 06/29/20 10/05/20 History aspirin 81 mg tablet,delayed 81 mg PO DAILY 06/29/20 10/05/20 History release bupropion HCl 300 mg 24 hr tablet, 300 mg PO QAM 06/29/20 10/05/20 History extended release cholecalciferol (vitamin D3) 25 25 mcg PO DAILY 09/27/20 10/05/20 History mcg (1,000 unit) capsule pramipexole 0.5 mg tablet 0.5 mg PO BEDTIME 10/05/20 10/05/20 History Allergies Allergy/AdvReac Type Severity Reaction Status Date / Time No Known Allergies Allergy Verified 09/27/20 10:04 [No Known Allergies*] Physical Exam Vital signs: Vital Signs Temp 98.3 F 10/05/20 11:42 Pulse 89 10/05/20 11:42 Resp 14 10/05/20 11:42 BP 190/91 H 10/05/20 11:42 Pulse Ox 97 10/05/20 11:42 Intake & Output 10/04/20 10/05/20 10/05/20 18:59 06:59 18:59 Other: Weight 107.8 kg Weight 107.8 kg - Constitutional Present: no acute distress - Routine HEENT Exam Head: Present: normal inspection Eye: Present: EOMI - Routine Neck Exam Present: supple. Absent: lymphadenopathy - Routine Respiratory Exam Present: CTAB - Routine Cardiovascular Exam Cardiovascular: Present: RRR, S1, S2 - Routine Abdominal Exam Present: soft. Absent: organomegaly - Routine Extremities Exam Present: normal inspection. Absent: pedal edema - Routine Skin Exam Present: intact. Absent: erythema Hem/Onc Consult Result - Labs CBC & Chem 7: 10/05/20 12:18 10/05/20 12:18 Assessment and Plan (1) Cancer of right kidney Status: Chronic This is a 55-year-old woman with history of stage I right kidney cancer that was diagnosed in 2019. She has undergone laparoscopic partial nephrectomy and has been doing quite well. I do not have any records, this will be obtained from her urologist at [facility]. I have explained to patient that stage I kidney cancer has an excellent prognosis with very high cure rates. Blood work today including LDH is normal. I agree with continued monitoring with ultrasound alternating with CT scans every 6 months until year 5. Patient was advised to continue with yearly screening mammography and go for her 5 year colonoscopy because of prior polyps. There is no family history of any cancers that she can recall. She was also advised about exercise and weight loss since obesity is associated with certain malignancies including kidney cancer. I thank you very much for this consultation. Follow-up in 1 year.
[2020-10-05 13:01] LABS: Alanine Aminotransferase 30 U/L (0-31); Albumin Level 4.5 g/dL (3.5-5.0); Alkaline Phosphatase 119 U/L (39-117); Anion Gap 15 (12-20); Aspartate Amino Transferase 21 U/L (5-31); Bilirubin Total 0.3 mg/dL (0.0-1.0); Blood Urea Nitrogen 11 mg/dL (9-16); Calcium 9.7 mg/dL (8.4-10.2); Carbon Dioxide 28 mmol/L (22-29); Chloride 105 mmol/L (96-108); Creatinine Clr Calc Pharmacy 76.9; Estimated Glomerular Filt Rate 55; Glucose Random 103 mg/dL (60-115); Lactate Dehydrogenase 181 U/L (122-220); Potassium 4.8 mmol/l (3.3-5.1); Sodium 143 mmol/L (135-145); Total Protein 7.4 g/dL (6.5-8.0)
--- NOTE | 2020-10-05 13:02 | MHC.HEMONCMA ---
Patient came in for a consult for a history of kidney cancer. Biopsy and surgery was done at [facility]. I will get records. Her chart was reviewed and updated.
== END | disposition home or self-care (01) ==
LOC: HO.ONC 10-05 11:09
PROVIDERS: PCP Internal Medicine; Referring Provider Internal Medicine; Visit Provider Internal Medicine
DX: Z85.528 Personal history of other malignant neoplasm of kidney (principal); E66.9 Obesity, unspecified
CPT/HCPCS: 36415; 80053; 83615; 85025; 99203

== ENCOUNTER 2024-06-07 15:34 | Outpatient (AMB) | payer OTHER, SELFPAY ==
[2024-06-07 15:36] VITALS: BP 88/64; PULSE 90; O2SAT 98; BMI 31.6
--- NOTE | 2024-06-07 15:36 | HO.NEPHOV_ITS ---
Vital Signs 06/07/24 15:36 Height 5 ft 7 in Weight 202 lb BMI 31.6 BP 88/64 L Blood Pressure Location Lt brachial Position Sitting Pulse 90 Pulse Source Pulse Oximeter Pulse Oximetry (%) 98 Oxygen Delivery Method Room Air Intake Visit Reasons: Proteinuria/ Conf Master [employer] Required: No Accompanied by: Self / Same As Patient Allergies No Known Allergies [No Known Allergies*] Allergy (Verified 06/07/24 15:38) HPI Comments Details: Gina is a pleasant middle-aged woman with a history of longstanding diabetes mellitus and obesity, Renal cell carcinoma status post partial right nephrectomy in 2019, history of nephrolithiasis status post lithotripsy in 2019 Recently she was found to have microalbuminuria. Urine microalbumin creatinine ratio was 60. She has been on lisinopril for almost 5 years. She has no history of hypertension. History of hyperparathyroidism. Three glands have been removed. She is on Ozempic and she was lost about 40 lb. Recent blood pressures have been rather low. [facility] Medical History (Updated 06/07/24 @ 16:06 by Macho Eastman MD) Mild ascending aorta dilation Class 2 severe obesity with serious comorbidity and body mass index (BMI) of 37.0 to 37.9 in adult GERD (gastroesophageal reflux disease) Mild recurrent major depression Class 2 severe obesity with serious comorbidity and body mass index (BMI) of 38.0 to 38.9 in adult Cancer of right kidney Left wrist pain Obesity (BMI 30-39.9) Depression Non-toxic multinodular goiter Hypertension Dyslipidemia Diabetes type 2, controlled Primary hyperparathyroidism Surgical History Status post Mohs micrographic surgery for basal cell carcinoma (BCC) Status post fine needle aspiration History of colonoscopy History of kidney surgery History of parathyroidectomy History of removal of ovarian cyst History of back surgery Family History Father Diabetes Hypertension High cholesterol Skin cancer Mother Dementia Mental health disorder Family/Other History of breast cancer Social History Housing: House Alcohol intake: never Patient Tobacco Use Status: Never used Tobacco e-Cigarette/Vaping Use: Never Used Second Hand Smoke Exposure: No service: No Current occupational status: employed Current occupational exposures/hazards: No Cognitive needs: No Hearing needs: No Vision needs: No Review of Systems Const Denies fever(s) Card Denies chest pain Resp Denies cough and Denies hemoptysis GI Denies abdominal pain, Denies diarrhea and Denies nausea Musc Denies back pain Neuro Denies focal weakness Physical Exam Vital Signs: Last Vital Signs Pulse 90 06/07/24 15:36 BP 88/64 L 06/07/24 15:36 Pulse Ox 98 06/07/24 15:36 Oxygen Delivery Method Room Air 06/07/24 15:36 BMI result Body Mass Index 31.6 Const General: comfortable; No acute distress Orientation/consciousness: patient oriented x3 Eyes General: appearance normal, both eyes and all related structures Visual [place]unkett: normal visual plunkett by confrontation Neck Neck: Yes supple and Yes no JVD Resp Effort & Inspection: normal respiratory effort and respiratory effort not decreased Auscultation: rhonchi Cardio Palpation: no palpable S3 and no palpable S4 Heart sounds: no rubs GI Inspection: Yes normal to inspection Palpation (GI): Soft to palpation Percussion: Yes normal to percussion Auscultation: normal bowel sounds General: Yes no CVA tenderness Back/Spine/Pelvis Back: no CVA tenderness Skin General skin exam: no petechiae and no purpura Neuro General: patient oriented x3 and no focal motor deficits Extrem General: No clubbing and No edema Results Reviewed Nephrology Results: Sodium 140 mmol/L (135-145) 04/29/24 Potassium 4.5 mmol/L (3.3-5.1) 04/29/24 Chloride 104 mmol/L (96-108) 04/29/24 Carbon Dioxide 27 mmol/L (22-29) 04/29/24 BUN 10 mg/dL (9-16) 04/29/24 Creatinine 0.91 mg/dL (0.5-1.4) 04/29/24 Calcium 9.5 mg/dL (8.4-10.2) 04/29/24 Urine Creatinine 108.85 mg/dL 04/29/24 Assessment & Plan Assessment & Plan (1) Microalbuminuria: Comment: In the setting of diabetes mellitus and obesity. Code(s): R80.9 - Proteinuria, unspecified Category: Medical Plan: Discussed importance of tight control blood sugar. Continue THIERRY inhibition. Continue with weight loss. Monitor urine protein excretion periodically (2) Hyperparathyroidism: Comment: Status post parathyroidectomy. Three glands have been removed. Code(s): E21.3 - Hyperparathyroidism, unspecified Category: Medical Plan: Follow calcium and intact PTH (3) Diabetes mellitus: Code(s): E11.9 - Type 2 diabetes mellitus without complications Category: Medical Qualifiers: Diabetes mellitus type: type 2 Diabetes mellitus intermediate card tender insulin use: without intermediate card tender use Diabetes mellitus complication status: without complication Qualified Code(s): E11.9 - Type 2 diabetes mellitus without complications Plan: Optimize blood sugar Follow hemoglobin A1c Encouraged weight loss (4) Cancer of right kidney: Comment: Renal cell carcinoma. Status post partial nephrectomy 2019. Code(s): C64.1 - Malignant neoplasm of right kidney, except renal pelvis Category: Medical Plan: Continue active follow up with Urology Orders: Orders UA and rflx microscopic 2 Months E21.3 - Hyperparathyroidism, unspecified, R80.9 - Proteinuria, unspecified Creatinine Urine 2 Months E21.3 - Hyperparathyroidism, unspecified, R80.9 - Proteinuria, unspecified Parathyroid Hormone Intact 2 Months E21.3 - Hyperparathyroidism, unspecified, R80.9 - Proteinuria, unspecified Total Protein Urine Random 2 Months E21.3 - Hyperparathyroidism, unspecified, R80.9 - Proteinuria, unspecified Basic Metabolic Panel 2 Months E21.3 - Hyperparathyroidism, unspecified, R80.9 - Proteinuria, unspecified Microalbumin, Random (w Creat) 2 Months E21.3 - Hyperparathyroidism, unspecified, R80.9 - Proteinuria, unspecified Coding Level of Care Code New Pt Level 4 (07584) Diagnoses Microalbuminuria R80.9 Hyperparathyroidism E21.3 Type 2 diabetes mellitus without complication, without long-term current use of insulin E11.9 Diabetes mellitus type: type 2 Diabetes mellitus intermediate card tender insulin use: without intermediate card tender use Diabetes mellitus complication status: without complication Cancer of right kidney C64.1
== END 2024-06-07 16:01 | disposition home or self-care (01) ==
PROVIDERS: PCP Internal Medicine; Referring Provider Internal Medicine; Visit Provider Internal Medicine Hypertension Specialist
DX: R80.9 Proteinuria, unspecified (principal); E21.3 Hyperparathyroidism, unspecified; E11.9 Type 2 diabetes mellitus without complications; C64.1 Malignant neoplasm of right kidney, except renal pelvis
CPT/HCPCS: 99204

== ENCOUNTER → 2024-06-07 15:34 | Outpatient (BNVA) | payer OTHER, SELFPAY | PROVIDERS: PCP Internal Medicine; Referring Provider Internal Medicine; Visit Provider Internal Medicine Hypertension Specialist ==

== ENCOUNTER 2024-08-10 06:43 | Outpatient (REF) | payer OTHER, SELFPAY ==
[2024-08-10 07:48] LABS: Anion Gap 16 (12-20); Blood Urea Nitrogen 9 mg/dL (9-16); Calcium 9.5 mg/dL (8.4-10.2); Carbon Dioxide 25 mmol/L (22-29); Chloride 105 mmol/L (96-108); Estimated Glomerular Filt Rate > 60; Glucose Random 106 mg/dL (60-115); Potassium 4.2 mmol/L (3.3-5.1); Sodium 142 mmol/L (135-145)
[2024-08-10 07:54] LABS: Parathyroid Hormone Intact 72.8 pg/mL (8.7-77.1)
[2024-08-10 08:11] LABS: Appearance Urine Cloudy; Color Urine Dark Yellow; Glucose Urine UA Negative (Negative); Leukocyte Esterase Urine Large (3+) (Negative); Nitrite Urine Negative (Negative); PH 5.5 (5.0-9.0); UMIC TRIGGER UA YES; Urine Blood Negative (Negative); Urine Ketones Trace mg/dL (Negative); Urine Protein 30 (1+) mg/dL (Neg-Trace)
[2024-08-10 08:27] LABS: Bacteria Urine Trace (None Seen); Creatinine Urine 302.56 mg/dL; Microalbum/Creatinine Ratio Ur 60.4 ug/mg cr (<30); RBC Urine 0-2 /HPF (0-2); Total Protein Urine Random 42 mg/dL (<12)
== END 2024-08-10 06:44 | disposition home or self-care (01) ==
LOC: HO.LAB 06:43
PROVIDERS: PCP Internal Medicine; Visit Provider Internal Medicine Hypertension Specialist
DX: R80.9 Proteinuria, unspecified (principal); E21.3 Hyperparathyroidism, unspecified
CPT/HCPCS: 36415; 80048; 81001; 81003; 82043; 82570; 83970; 84156

== ENCOUNTER 2024-08-22 11:06 | Outpatient (AMB) | payer OTHER, SELFPAY ==
--- NOTE | 2024-08-22 11:08 | HO.NEPHOV_ITS ---
Vital Signs 08/22/24 11:09 Height 5 ft 7 in Weight 191 lb BMI 29.9 BP 100/62 Blood Pressure Location Lt brachial Position Sitting Pulse 91 Pulse Source Pulse Oximeter Pulse Oximetry (%) 99 Oxygen Delivery Method Room Air Intake Visit Reasons: Proteinuria/ Conf Otolaryngology Nurse Required: No Accompanied by: Self / Same As Patient Allergies No Known Allergies [No Known Allergies*] Allergy (Verified 08/22/24 11:11) Medication List - Last Reconciled 08/22/24 by Macho Eastman MD aripiprazole 5 mg PO DAILY aspirin (Adult Aspirin Regimen) 81 mg PO DAILY atorvastatin 40 mg PO BEDTIME 90 days baclofen 20 mg PO BID blood sugar diagnostic (FreeStyle Lite Strips) once a day blood-glucose meter (FreeStyle Lite Meter kit) As directed bupropion HCl XL (Wellbutrin XL) 300 mg PO QAM cholecalciferol (vitamin D3) 25 mcg PO DAILY 90 days escitalopram oxalate (Lexapro) 20 mg PO DAILY gabapentin 400 mg PO BEDTIME lancets (FreeStyle Lancets) once a day lisinopril 5 mg PO DAILY metformin ER 1,000 mg (2 x 500 mg) PO BID omeprazole 20 mg PO DAILY PRN semaglutide (Ozempic) 2 mg (0.75 mL) subcut QWEEK 4 weeks HPI Comments Details: Gina is a pleasant middle-aged woman with a history of longstanding diabetes mellitus and obesity, Renal cell carcinoma status post partial right nephrectomy in 2019, history of nephrolithiasis status post lithotripsy in 2019 Recently she was found to have microalbuminuria. Urine microalbumin creatinine ratio was 60. She has been on lisinopril for almost 5 years. She has no history of hypertension. History of hyperparathyroidism. Three glands have been removed. She is on Ozempic and she was lost about 40 lb. Recent blood pressures have been rather low. 08/22/24 After switching Lisinopril to Q Pm. she has no further dizziness. Lost few more lbs [facility] Medical History (Updated 06/07/24 @ 16:06 by Macho Eastman MD) Mild ascending aorta dilation Class 2 severe obesity with serious comorbidity and body mass index (BMI) of 37.0 to 37.9 in adult GERD (gastroesophageal reflux disease) Mild recurrent major depression Class 2 severe obesity with serious comorbidity and body mass index (BMI) of 38.0 to 38.9 in adult Cancer of right kidney Left wrist pain Obesity (BMI 30-39.9) Depression Non-toxic multinodular goiter Hypertension Dyslipidemia Diabetes type 2, controlled Primary hyperparathyroidism Surgical History Status post Mohs micrographic surgery for basal cell carcinoma (BCC) Status post fine needle aspiration History of colonoscopy History of kidney surgery History of parathyroidectomy History of removal of ovarian cyst History of back surgery Family History Father Diabetes Hypertension High cholesterol Skin cancer Mother Dementia Mental health disorder Family/Other History of breast cancer Social History Housing: House Alcohol intake: never Patient Tobacco Use Status: Never used Tobacco e-Cigarette/Vaping Use: Never Used Second Hand Smoke Exposure: No service: No Current occupational status: employed Current occupational exposures/hazards: No Cognitive needs: No Hearing needs: No Vision needs: No Physical Exam Vital Signs: Last Vital Signs Pulse 91 08/22/24 11:09 BP 100/62 08/22/24 11:09 Pulse Ox 99 08/22/24 11:09 Oxygen Delivery Method Room Air 08/22/24 11:09 BMI result Body Mass Index 29.9 Comfortable Neck supple no JVD. Lungs entry equal no rales. Heart S1-S2 heard no gallop or rub. Abdomen soft nontender. Neuro alert awake oriented. No asterixis. Extremities no edema. Results Reviewed Nephrology Results: Sodium 142 mmol/L (135-145) 08/10/24 Potassium 4.2 mmol/L (3.3-5.1) 08/10/24 Chloride 105 mmol/L (96-108) 08/10/24 Carbon Dioxide 25 mmol/L (22-29) 08/10/24 BUN 9 mg/dL (9-16) 08/10/24 Creatinine 0.93 mg/dL (0.5-1.4) 08/10/24 Calcium 9.5 mg/dL (8.4-10.2) 08/10/24 PTH Intact 72.8 pg/mL (8.7-77.1) 11/20/24 Urine Protein 30 (1+) mg/dL (Neg-Trace) H 08/10/24 Urine Creatinine 302.56 mg/dL 08/10/24 Assessment & Plan Assessment & Plan (1) Microalbuminuria: Comment: In the setting of diabetes mellitus and obesity. Code(s): R80.9 - Proteinuria, unspecified Category: Medical Plan: Discussed importance of tight control blood sugar. Continue THIERRY inhibition. Continue with weight loss. Monitor urine protein excretion periodically (2) Hyperparathyroidism: Comment: Status post parathyroidectomy. Three glands have been removed. Code(s): E21.3 - Hyperparathyroidism, unspecified Category: Medical Plan: Follow calcium and intact PTH (3) Diabetes mellitus: Code(s): E11.9 - Type 2 diabetes mellitus without complications Category: Medical Qualifiers: Diabetes mellitus complication status: without complication Diabetes mellitus terminal makeup operator insulin use: without terminal makeup operator use Diabetes mellitus type: type 2 Qualified Code(s): E11.9 - Type 2 diabetes mellitus without complications Plan: Optimize blood sugar Follow hemoglobin A1c Encouraged weight loss (4) Cancer of right kidney: Comment: Renal cell carcinoma. Status post partial nephrectomy 2018. Code(s): C64.1 - Malignant neoplasm of right kidney, except renal pelvis Category: Medical Plan: Continue active follow up with Urology Orders: Orders Basic Metabolic Panel 6 Months E21.3 - Hyperparathyroidism, unspecified, R80.9 - Proteinuria, unspecified Total Protein Urine Random 6 Months E21.3 - Hyperparathyroidism, unspecified, R80.9 - Proteinuria, unspecified Parathyroid Hormone Intact 6 Months E21.3 - Hyperparathyroidism, unspecified, R80.9 - Proteinuria, unspecified Creatinine Urine 6 Months E21.3 - Hyperparathyroidism, unspecified, R80.9 - Proteinuria, unspecified UA and rflx microscopic 6 Months E21.3 - Hyperparathyroidism, unspecified, R80.9 - Proteinuria, unspecified Coding Level of Care Code Est Pt Level 4 (19315) Diagnoses Microalbuminuria R80.9 Hyperparathyroidism E21.3 Type 2 diabetes mellitus without complication, without long-term current use of insulin E11.9 Diabetes mellitus complication status: without complication Diabetes mellitus terminal makeup operator insulin use: without terminal makeup operator use Diabetes mellitus type: type 2 Cancer of right kidney C64.1
[2024-08-22 11:09] VITALS: BP 100/62; PULSE 91; O2SAT 99; BMI 29.9
== END 2024-08-22 11:25 | disposition home or self-care (01) ==
PROVIDERS: PCP Internal Medicine; Visit Provider Internal Medicine Hypertension Specialist
DX: R80.9 Proteinuria, unspecified (principal); E21.3 Hyperparathyroidism, unspecified; E11.8 Type 2 diabetes mellitus with unspecified complications; C64.1 Malignant neoplasm of right kidney, except renal pelvis
CPT/HCPCS: 99214

== ENCOUNTER 2024-09-23 07:39 | Outpatient (AMB) | payer OTHER, SELFPAY ==
[2024-09-23 07:45] VITALS: BP 120/76; PULSE 77; O2SAT 98; BMI 28.2
--- NOTE | 2024-09-23 07:45 | A.OFFPC_ITS ---
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 Utilization Management Um Required: No Accompanied by: Self / Same As Patient Allergies No Known Allergies [No Known Allergies*] Allergy (Verified 09/23/24 08:06) Medication List - Last Reconciled 09/23/24 by Malinda Tate MD aripiprazole 5 mg PO DAILY aspirin (Adult Aspirin Regimen) 81 mg PO DAILY atorvastatin 40 mg PO BEDTIME 90 days baclofen 20 mg PO BID blood sugar diagnostic (FreeStyle Lite Strips) once a day blood-glucose meter (FreeStyle Lite Meter kit) As directed bupropion HCl XL (Wellbutrin XL) 300 mg PO QAM cholecalciferol (vitamin D3) 25 mcg PO DAILY 90 days escitalopram oxalate (Lexapro) 20 mg PO DAILY gabapentin 400 mg PO BEDTIME lancets (FreeStyle Lancets) once a day lisinopril 5 mg PO DAILY metformin ER 1,000 mg (2 x 500 mg) PO BID semaglutide (Ozempic) 2 mg (0.75 mL) subcut QWEEK 4 weeks Tobacco use date assessed: 09/23/24 Dental Screening Dental Screen Date: 09/23/24 Did you have a dental visit in the last 12 months?: Yes Did you have a dental problem in the last 6 months where you did not have access to dental care?: No Was dental information given to patient?: Patient has dentist HPI HPI Comments History of Present Illness Details The patient is a 59-year-old female presenting with neck pain. This issue started about a week ago after waking up with stiffness and has been worsening since then. The patient describes excruciating pain with certain neck movements, especially when lifting the neck. The pain improves when the head is hung. There is associated tingling sensation and pain radiating to the left arm, particularly near the elbow. There are no recollections of trauma or unusual movements at the onset. Previously, the patient experienced dizziness with Lisinopril, but a bedtime adjustment resolved this. The patient's medical history includes major depressive disorder managed with Abilify and bupropion, hyperlipidemia managed with atorvastatin, essential hypertension managed with Lisinopril, diabetes mellitus with past A1c within goal, and a nephrology foll ow-up for elevated urinary protein levels. The patient also has a history of the removal of three parathyroid glands with subsequent normal parathyroid function. She also has history of right kidney cancer with nephrectomy in 2019. Had hyperparathyroidism requiring removal of 3 glands and now PTH normal. [facility] Medical History (Updated 09/23/24 @ 08:18 by Malinda Tate MD) Mild ascending aorta dilation Class 2 severe obesity with serious comorbidity and body mass index (BMI) of 37.0 to 37.9 in adult GERD (gastroesophageal reflux disease) Mild recurrent major depression Class 2 severe obesity with serious comorbidity and body mass index (BMI) of 38.0 to 38.9 in adult Cancer of right kidney Left wrist pain Obesity (BMI 30-39.9) Depression Non-toxic multinodular goiter Hypertension Dyslipidemia Diabetes type 2, controlled Primary hyperparathyroidism Surgical History Status post Mohs micrographic surgery for basal cell carcinoma (BCC) Status post fine needle aspiration History of colonoscopy History of kidney surgery History of parathyroidectomy History of removal of ovarian cyst History of back surgery Family History Father Diabetes Hypertension High cholesterol Skin cancer Mother Dementia Mental health disorder Family/Other History of breast cancer Social History Housing: House Alcohol intake: never Patient Tobacco Use Status: Never used Tobacco e-Cigarette/Vaping Use: Never Used Second Hand Smoke Exposure: No service: No Current occupational status: employed Current occupational exposures/hazards: No Cognitive needs: No Hearing needs: No Vision needs: No Questionnaire PHQ-9 Over the last 2 weeks, how often have you been bothered by any of the following problems? 1. Little interest or pleasure in doing things: several days 2. Feeling down, depressed, or hopeless: nearly every day 3. Trouble falling or staying asleep, or sleeping too much: more than half the days 4. Feeling tired or having little energy: several days 5. Poor appetite or overeating: nearly every day 6. Feeling bad about yourself - or that you are a failure or have let yourself or your family down: not at all 7. Trouble concentrating on things, such as reading the newspaper or watching television: not at all 8. Moving or speaking so slowly that other people could have noticed. Or the opposite - being so fidgety or restless that you have been moving around a lot more than usual: several days 9. Thoughts that you would be better off or of hurting yourself in some way: not at all Total score: 11 Depression Screening Interpretation: Positive Depression Screening Follow-up: Existing condition, In treatment, Community Mental Health Worker F/U and Follow- up Visit Requested Depression Screening Done: Yes 91462 - PHQ-9 Billing: Yes Source: Developed by Drs. Rubens Langston, Mary Fritz, Taiwo Puri and colleagues, with an educational aurora from [employer]. Thrive Questionnaire Date Thrive assessed: 09/23/24 I am a: Patient What is your living situation today?: I have a steady place to live Within the past 12 months, did the food you bought not last and you didn't have the money to get more?: Never true Within the past 12 months, did you worry whether your food would run out before you got money to buy more?: Never true Do you have trouble paying for medicines?: No Do you have trouble getting transportation to medical appointments?: No Do you have trouble paying your heating and electricity bill?: No Do you have trouble taking care of your child, family member or friend?: No Do you have trouble with day-to-day activities such as bathing, preparing meals, shopping, managing finances, etc.?: No Are you currently unemployed and looking for a job?: No Are you interested in more education?: No Please select the resources that you would like help with: None Currently or been in a relationship where the following occur: No concerns reported THRIVE Score: 0 AUDIT C Alcohol Use Questionnaire (AUDIT-C) 1. How often do you have a drink containing alcohol?: Never 3. How often do you have six or more drinks on one occasion?: Never Total Score: 0 Score Reviewed/Action Taken: No AMRIT-7 AMB Questionnaire AMRIT-7 Date AMRIT - 7 assessed: 09/23/24 Feeling nervous, anxious, or on edge: 0 = Not at all Not being able to stop or control worryin = Not at all Worrying too much about different things: 0 = Not at all Trouble relaxin = Not at all Being so restless that it is hard to sit still: 0 = Not at all Becoming easily annoyed or irritable: 0 = Not at all Feeling afraid as if something awful might happen: 0 = Not at all Total AMRIT-7 score (0-4 normal; 5-9 mild; 10-14 moderate; 15-21 severe): 0 Source: Developed by Drs. Rubens Langston, Mary Fritz, Taiwo Puri and colleagues, with an educational aurora from [employer]. AMRIT-7 Assessment Billing AMRIT-7 Assessment Tool: AMRIT-7 Assessment 60992 Review of Systems Const Details: - Musculoskeletal: Reports neck pain and tingling in the left arm. - Cardiovascular: Denies dizziness (since change of Lisinopril timing). - Endocrine/Metabolic: Denies current concerns with previous parathyroid issues. Physical exam (Primary Care) Vital Signs: Last Vital Signs Pulse 77 09/23/24 07:45 BP 120/76 09/23/24 07:45 Pulse Ox 98 09/23/24 07:45 Oxygen Delivery Method Room Air 09/23/24 07:45 BMI result Body Mass Index 28.2 Tobacco/Smoking Status: Tobacco use Status Tobacco use date assessed 09/23/24 09/23/24 07:48 Patient Tobacco Use Status Never used Tobacco 09/23/24 07:48 e-Cigarette/Vaping Use Never Used 09/23/24 07:48 PHQ-9: PHQ-9 Score PHQ-9: Total score 11 09/23/24 08:32 Depression Screening Interpretation: Positive Depression Screening Follow-up: Existing condition, In treatment, Community Mental Health Worker F/U and Follow- up Visit Requested Thrive Assessment: Date of Thrive Assessment Date Thrive assessed 09/23/24 09/23/24 07:48 Currently or been in a relationship where the following occur: No concerns reported Const Other: General: No confusion Neck: Normal visual inspection, Yes supple, but patient reports pain when lifting neck, with excruciating pain in certain positions. No tenderness on palpation, creaking on movement, limited extension and flexion. Respiratory: Normal respiratory effort, clear to auscultation bilaterally Cardiovascular: No jugular venous distension, regular rate, regular rhythm, S1 normal heart sound present and S2 normal heart sound present Neurology: Patient oriented x3, no focal motor deficits and No confusion. Reports tingling and pain in left arm, particularly when moving neck. Extremities: Full ROM, but reports tingling and pain in left arm. Psychology: Grossly normal Results AMB Hemoglobin A1c AMB Hemoglobin A1c 5.5 % Last Edit by CHANA Hebert on 09/23/24 08 :33 Results Reviewed Results Reviewed: Laboratory Last Values Hgb A1c (Clinic) 5.5 % (4.0-6.0) 09/23/24 08:09 Coding Level of Care Code Est Pt Level 4 (95377) Complex EM visit Add On G2211 Diagnoses Cervical radiculopathy M54.12 Hyperparathyroidism E21.3 Microalbuminuria R80.9 Type 2 diabetes mellitus without complication, without long-term current use of insulin E11.9 Diabetes mellitus type: type 2 Diabetes mellitus prison insulin use: without long term care phlebotomist use Diabetes mellitus complication status: without complication Mild recurrent major depression F33.0 Primary hypertension I10 Hypertension type: primary hypertension Dyslipidemia E78.5 Cancer of right kidney C64.1 Additional Codes AMRIT-7 Assessment Billing - ARMIT-7 Assessment Tool: AMRIT-7 Assessment 95432 ([id number]) PHQ-9 - 06163 - PHQ-9 Billing: Yes ([id number]) Time Spent (min) 24 Assessment & Plan Assessment & Plan (1) Cervical radiculopathy: Code(s): M54.12 - Radiculopathy, cervical region Category: Medical (2) Hyperparathyroidism: Comment: Status post parathyroidectomy. Three glands have been removed. Code(s): E21.3 - Hyperparathyroidism, unspecified Category: Medical (3) Microalbuminuria: Comment: In the setting of diabetes mellitus and obesity. Code(s): R80.9 - Proteinuria, unspecified Category: Medical (4) Diabetes mellitus: Code(s): E11.9 - Type 2 diabetes mellitus without complications Category: Medical Qualifiers: Diabetes mellitus type: type 2 Diabetes mellitus long term care phlebotomist insulin use: without prison use Diabetes mellitus complication status: without complication Qualified Code(s): E11.9 - Type 2 diabetes mellitus without complications (5) Mild recurrent major depression: Code(s): F33.0 - Major depressive disorder, recurrent, mild Category: Medical (6) Hypertension: Code(s): I10 - Essential (primary) hypertension Category: Medical Qualifiers: Hypertension type: primary hypertension Qualified Code(s): I10 - Essential (primary) hypertension (7) Dyslipidemia: Code(s): E78.5 - Hyperlipidemia, unspecified Category: Medical (8) Cancer of right kidney: Comment: Renal cell carcinoma. Status post partial nephrectomy 2019. Code(s): C64.1 - Malignant neoplasm of right kidney, except renal pelvis Category: Medical Plan - Initiate physical therapy for neck pain. - Order x-rays of the cervical spine for further evaluation. - Follow-up on the patient's neck condition in one month. - Continue current medication regimen for depression, hyperlipidemia, and hypertension. - Fasting blood work to be scheduled for next month. - Maintain appointment in October for comprehensive evaluation and blood work review. - Patient to continue follow-ups with nephrology as needed. Patient was informed and verbally consented to the use of an ambient scribe for clinic note documentation during this visit. I discussed with the patient that her neck pain may benefit from physical therapy and possibly further imaging if symptoms persist. We will start with x- rays and reassess in one month's time. I noted that [facility] may be considered for immediate follow-up without needing an MRI if specialized intervention is warranted. I emphasized the importance of maintaining current medications for chronic conditions, as they are well tolerated and effective. We agreed to check fasting blood work next month and keep our upcoming October appointment to review progress and make necessary adjustments. The patient was advised on the importance of consistent monitoring and follow-up for her renal status with nephrology. Orders: Orders AMB Hemoglobin A1c Today Z13.9 - Encounter for screening, unspecified XR cervical spine 2V Today M54.12 - Radiculopathy, cervical region Comprehensive [place]. Panel Fast Today E11.9 - Type 2 diabetes mellitus without complications PT Evaluation and Treatment Today M54.12 - Radiculopathy, cervical region Vitamin D 25-OH Total Today E55.9 - Vitamin D deficiency, unspecified Lipid Panel Today E78.5 - Hyperlipidemia, unspecified Microalbumin, Random (w Creat) Today R80.9 - Proteinuria, unspecified Patient Instructions: - Begin physical therapy for neck pain as scheduled. - Complete x-rays of the cervical spine. - Follow up in one month for reassessment of neck pain. - Have fasting blood work done prior to the October appointment. - Maintain current medication regimen. - Continue to monitor blood pressure and blood glucose regularly. - Report any new or worsening symptoms immediately.
== END 2024-09-23 08:19 | disposition home or self-care (01) ==
PROVIDERS: PCP Internal Medicine; Visit Provider Internal Medicine
DX: E11.69 Type 2 diabetes mellitus with other specified complication (principal); E21.3 Hyperparathyroidism, unspecified; C64.1 Malignant neoplasm of right kidney, except renal pelvis; F33.0 Major depressive disorder, recurrent, mild; M54.12 Radiculopathy, cervical region; R80.9 Proteinuria, unspecified; I10 Essential (primary) hypertension; E78.5 Hyperlipidemia, unspecified

== ENCOUNTER 2024-09-23 07:39 | Outpatient (REF) | payer OTHER, SELFPAY ==
--- NOTE | ~2024-09-23 | XR_ITS ---
CLINICAL HISTORY: M54.12 - Radiculopathy, cervical region 5 views cervical spine Comparison: None Findings: C7-T1 is not visualized on the current study. Normal vertebral body alignment. No acute fractures or dislocation. Multiple level degenerative disc change. No prevertebral soft tissue swelling. IMPRESSION: No acute findings. This document has been electronically signed by: Micheal Green MD on 09/23/2024 18:57:03
== END 2024-09-23 07:40 | disposition home or self-care (01) ==
LOC: HO.XRAY 07:39
PROVIDERS: PCP Internal Medicine; Visit Provider Internal Medicine
DX: M54.12 Radiculopathy, cervical region (principal); E21.3 Hyperparathyroidism, unspecified; R80.9 Proteinuria, unspecified; E11.9 Type 2 diabetes mellitus without complications; F33.0 Major depressive disorder, recurrent, mild; I10 Essential (primary) hypertension; E78.5 Hyperlipidemia, unspecified; C64.1 Malignant neoplasm of right kidney, except renal pelvis
CPT/HCPCS: 72040; 83036; 96127

== ENCOUNTER → 2024-09-23 08:26 | Outpatient (BNV) | payer OTHER, SELFPAY | PROVIDERS: PCP Internal Medicine; Visit Provider Specialist | DX: M54.12 Radiculopathy, cervical region (principal) | CPT/HCPCS: 72040 ==

== ENCOUNTER 2024-10-12 07:51 | Outpatient (REF) | payer OTHER, SELFPAY | END 2024-10-12 07:52 | disposition home or self-care (01) | LOC: HO.MAMMO 07:51 | PROVIDERS: PCP Internal Medicine; Visit Provider Internal Medicine | DX: Z12.31 Encounter for screening mammogram for malignant neoplasm of breast (principal) | CPT/HCPCS: 77063; 77067 ==

== ENCOUNTER → 2024-10-12 08:00 | Outpatient (BNV) | payer OTHER, SELFPAY | PROVIDERS: PCP Internal Medicine; Visit Provider Internal Medicine | DX: Z12.31 Encounter for screening mammogram for malignant neoplasm of breast (principal) | CPT/HCPCS: 77063; 77067 ==

== ENCOUNTER 2024-10-25 14:04 | Emergency (ER) | payer OTHER, SELFPAY ==
--- NOTE | ~2024-10-25 | XR_ITS ---
EXAMINATION: XR ABDOMEN KUB CLINICAL INDICATION: constipation x1 week COMPARISON: None available. TECHNIQUE: AP view of the abdomen. FINDINGS: The bowel gas pattern is normal with no evidence of ileus or obstruction. No unusual soft tissue calcifications are noted. The bones are unremarkable. XR/XR KUB IMPRESSION: Unremarkable KUB examination. Electronically signed by: Arslan Mendes MD 10/25/2024 04:44 PM EST
[2024-10-25 16:01] VITALS: BP 145/77; PULSE 98; RESP 16; TEMP 37.1; O2SAT 100; BMI 28.5
--- NOTE | 2024-10-25 16:06 | ED.NAVMDI ---
HPI - Nausea/Vomiting/Diarrhea General Chief complaint: Nausea/Vomiting/Diarrhea Stated complaint: Constipation, vomiting Time Seen by Provider: 10/25/24 21:23 Source: patient Mode of arrival: ambulatory Limitations: no limitations History of Present Illness ED Provider: HPI Narrative: Patient has been constipated for last 1 week on Ozempic not eating much tried enema yesterday without much relief slightly nauseated vomited once no abdominal distention no fever no chills no significant abdominal pain patient is not eating much Related Data Home Medications ?Medication ?Instructions ?Recorded ?Confirmed aripiprazole 5 mg tablet 5 mg PO DAILY 06/29/20 09/23/24 aspirin 81 mg tablet,delayed 81 mg PO DAILY 06/29/20 09/23/24 release (Adult Aspirin Regimen) bupropion HCl 300 mg 24 hr tablet, 300 mg PO QAM 06/29/20 09/23/24 extended release (Wellbutrin XL) gabapentin 400 mg capsule 400 mg PO BEDTIME 10/05/23 09/23/24 baclofen 10 mg tablet 20 mg PO BID 05/11/24 09/23/24 escitalopram oxalate 20 mg tablet 20 mg PO DAILY 06/07/24 09/23/24 (Lexapro) Previous Rx's ?Medication ?Instructions ?Recorded cholecalciferol (vitamin D3) 25 25 mcg PO DAILY 90 days #90 caps 09/09/22 mcg (1,000 unit) capsule blood sugar diagnostic (FreeStyle #100 ea 05/05/23 Lite Strips) blood-glucose meter (FreeStyle #1 ea 05/05/23 Lite Meter kit) lancets 28 gauge (FreeStyle #100 ea 05/05/23 Lancets) metformin 500 mg tablet,extended 1,000 mg (2 x 500 mg) PO BID #120 06/30/24 release 24 hr tabs lisinopril 5 mg tablet 5 mg PO DAILY #30 tabs 07/30/24 atorvastatin 40 mg tablet 40 mg PO BEDTIME 90 days #90 tabs 09/05/24 semaglutide 2 mg/dose (8 mg/3 mL) 2 mg (0.75 mL) subcut QWEEK 4 10/02/24 subcutaneous pen injector (Ozempic) weeks #3 mL polyethylene glycol 3350 17 17 g PO DAILY #510 grams 10/25/24 gram/dose oral powder (Miralax) Allergies Allergy/AdvReac Type Severity Reaction Status Date / Time No Known Allergies Allergy Verified 10/25/24 16:03 [No Known Allergies*] Review of Systems Review of Systems: Yes all other systems are reviewed and are negative [facility] Past Medical History Medical History Mild ascending aorta dilation Class 2 severe obesity with serious comorbidity and body mass index (BMI) of 37.0 to 37.9 in adult GERD (gastroesophageal reflux disease) Mild recurrent major depression Class 2 severe obesity with serious comorbidity and body mass index (BMI) of 38.0 to 38.9 in adult Cancer of right kidney Left wrist pain Obesity (BMI 30-39.9) Depression Non-toxic multinodular goiter Hypertension Dyslipidemia Diabetes type 2, controlled Primary hyperparathyroidism Surgical History Status post Mohs micrographic surgery for basal cell carcinoma (BCC) Status post fine needle aspiration History of colonoscopy History of kidney surgery History of parathyroidectomy History of removal of ovarian cyst History of back surgery Family History Family History Father Diabetes Hypertension High cholesterol Skin cancer Mother Dementia Mental health disorder Family/Other History of breast cancer Social History Social History Housing: House Alcohol intake: never Patient Tobacco Use Status: Never used Tobacco Smoked in Last 30 Days: No e-Cigarette/Vaping Use: Never Used Second Hand Smoke Exposure: No Use of substances other than those prescribed or required for medical reasons: No Advance Directives: Yes Advance Directives Information Provided: No Advance Directives on File: No service: No Current occupational status: employed Current occupational exposures/hazards: No Cognitive needs: No Hearing needs: No Vision needs: No Physical Exam Vital Signs: Vital Signs: Last Vital Signs Temp 98.2 F 10/25/24 22:54 Pulse 72 10/25/24 22:54 Resp 16 10/25/24 22:54 BP 109/71 10/25/24 22:54 Pulse Ox 98 10/25/24 22:54 O2 Del Method Room Air 10/25/24 22:54 BMI result Body Mass Index 28.5 Appearance: Alert. Oriented X3. No acute distress. Eyes: No pallor or icterus ENT: Pharynx normal. Oral Mucosa moist Neck: Normal inspection. Neck supple. CVS: Normal heart rate and rhythm. Pulses normal. Respiratory: No respiratory distress. Equal air entry bilateral, no wheezing/rales/rhonchi Abdomen: Soft and nontender. Bowel sounds are present, no mass palpable, no CVA tenderness Skin: Skin warm and dry. Normal skin color. Normal skin turgor. Extremities: No lower extremity edema. No calf tenderness Neuro: Oriented X 3. No motor deficit. Course Course Course Narrative: This is a Rapid Medical Examination (RME) performed by Koby Olsen PA-C in triage. Full HPI, ROS, assessment and treatment plan per primary provider in the Main ED. 59-year-old female hx of here for eval and constipation x1 week. Reports vomiting which began today. Mild abdominal discomfort, denies pain. passing flatus. Plan: Medications Administered Discontinued Medications Generic Name Dose Route Start Last Admin Trade Name Freq PRN Reason Stop Dose Admin Bisacodyl 10 mg 10/25/24 21:40 10/25/24 21:53 Bisacodyl 5 Mg Tablet.Dr PO 10/25/24 21:41 10 mg ONCE ONE Administration Magnesium Hydroxide 30 ml 10/25/24 21:41 10/25/24 21:53 Milk Of Magnesia 30 Ml Oral.Susp PO 10/25/24 21:42 30 ml ONCE ONE Administration Medical Decision Making Medical Decision Making [facility] Narrative: Patient with benign abdomen KUB x-ray negative for significant constipation/obstruction will give her milk of magnesia and Dulcolax in the ER advised to take MiraLax drink plenty of fluids Lab Data [facility] Lab Attestation statement: I reviewed the patient's lab results. 10/25/24 16:44 10/25/24 16:44 Labs: Lab Results 10/25/24 10/25/24 Range/Units 16:44 21:43 WBC 10.1 (4.8-10.8) X10*3/uL RBC 4.86 (4.20-5.50) X10*6/uL Hgb 13.6 (12.0-16.0) g/dl Hct 40.5 (37.0-47.0) % MCV 83.3 (80.0-98.0) fL MCH 28.0 (27.0-33.0) pg MCHC 33.6 (31.0-35.0) g/dl RDW 13.8 (11.0-16.0) % Plt Count 284 (160-400) X10*3/uL MPV 9.4 (9.4-12.3) fL Immature Gran % (Auto) 0.3 (0.0-0.4) % Neut % (Auto) 69.8 (45-73) % Lymph % (Auto) 23.4 (20-40) % Mclennan % (Auto) 5.7 (2-11) % Eos % (Auto) 0.4 (0-4) % Baso % (Auto) 0.4 (0-2) % Lymph # (Auto) 2.4 (1.2-4.9) X10*3/uL Mclennan # (Auto) 0.6 (0.1-1.2) X10*3/uL Eos # (Auto) 0.0 (0.0-0.4) X10*3/uL Baso # (Auto) 0.0 (0.0-0.2) X10*3/uL Abs Immat Gran (auto) 0.03 (0.00-0.03) X10*3/uL Absolute Neuts (auto) 7.1 (2.0-8.3) x10*3/uL Absolute Nucleated RBC 0.000 (0.0-0.012) X10*3/uL Nucleated RBC % (auto) 0.0 (0.0-0.2) /100WBC Sodium 140 (135-145) mmol/L Potassium 4.4 (3.3-5.1) mmol/L Chloride 104 (96-108) mmol/L Carbon Dioxide 21 L (22-29) mmol/L Anion Gap 19 (12-20) BUN 14 (9-16) mg/dL Creatinine 1.02 (0.5-1.4) mg/dL Estim Creat Clear Calc 64.9 Estimated GFR 56 Random Glucose 86 (60-115) mg/dL Calcium 9.1 (8.4-10.2) mg/dL Magnesium 1.7 (1.6-2.6) mg/dL Total Bilirubin 0.4 (0.0-1.0) mg/dL AST 23 (5-31) U/L ALT 24 (0-31) U/L Alkaline Phosphatase 82 (39-117) U/L Total Protein 7.7 (6.5-8.0) g/dL Albumin 4.5 (3.5-5.0) g/dL Urine Color Yellow Urine Appearance Cloudy Urine pH 5.5 (5.0-9.0) Ur Specific [place] 1.015 (1.005-1.025) Urine Protein Negative (Neg-Trace) mg/dL Urine Glucose (UA) Negative (Negative) mg/dL Urine Ketones 15 (Negative) mg/dL Urine Blood Negative (Negative) Urine Nitrite Negative (Negative) Ur Leukocyte Esterase Large (3+) H (Negative) Urine RBC 0-2 (0-2) /HPF Urine WBC >50 H (0-5) /HPF Ur Squamous Epith Cells 3-5 (0-2) /HPF Urine Bacteria None Seen (None Seen) Hyaline Casts 11-20 (0-2) /LPF Influenza Type A (PCR) NEGATIVE (Negative) Influenza Type B (PCR) NEGATIVE (Negative) RSV RNA Qual (PCR) NEGATIVE (Negative) SARS-CoV-2 RNA (RT-PCR) NEGATIVE (Negative) Independent Interpretation I performed an independent interpretation of an: Plain X-Ray Interpretation: NAD Radiology Impression Discussion of test interpretation with radiology: I have reviewed the radiologist's reading. Discharge Plan Discharge Clinical Impression: Constipation Patient Disposition: Home, Self-Care Instructions: Constipation (ED) Additional Instructions: Drink plenty of fluids Have food with increased fiber MiraLax for constipation Follow with your PCP if not better Prescriptions: New polyethylene glycol 3350 [Miralax] 17 gram/dose powder 17 g PO DAILY Qty: 510 0RF No Action (DME) FreeStyle Lite Strips Strip See Rx Instructions .ROUTE .MEDSUPPLY Qty: 100 2RF Rx Instructions: once a day (DME) lancets [FreeStyle Lancets] 28 gauge misc See Rx Instructions .MEDSUPPLY Qty: 100 2RF Rx Instructions: once a day metformin 500 mg tablet extended release 24 hr 1,000 mg PO BID Qty: 120 6RF lisinopril 5 mg tablet 5 mg PO DAILY Qty: 30 6RF atorvastatin 40 mg tablet 40 mg PO BEDTIME 90 Days Qty: 90 1RF Ozempic 2 mg/dose (8 mg/3 mL) pen injector 2 mg subcut QWEEK 28 Days Qty: 3 0RF cholecalciferol (vitamin D3) 25 mcg (1,000 unit) capsule 25 mcg PO DAILY 90 Days Qty: 90 1RF (DME) blood-glucose meter [FreeStyle Lite Meter] Kit See Rx Instructions .Route Qty: 1 0RF Rx Instructions: As directed gabapentin 400 mg capsule 400 mg PO BEDTIME aripiprazole 5 mg tablet 5 mg PO DAILY aspirin [Adult Aspirin Regimen] 81 mg tablet,delayed release (DR/EC) 81 mg PO DAILY bupropion HCl [Wellbutrin XL] 300 mg tablet extended release 24 hr 300 mg PO QAM baclofen 10 mg tablet 20 mg PO BID escitalopram oxalate [Lexapro] 20 mg tablet 20 mg PO DAILY Interventions: ED Discharge Assessment Last Done: 10/25/24 22:54 Discharge Date/Time: 10/25/24 22:54 Print Language: Kittitian
[2024-10-25 16:52] LABS: MANUAL DIFF FLAG NO
[2024-10-25 16:53] LABS: Basophils Percent Auto 0.4 % (0-2); Eosinophils Percent Auto 0.4 % (0-4); Hematocrit 40.5 % (37.0-47.0); Hemoglobin 13.6 g/dl (12.0-16.0); Imm Gran Abs Auto 0.03 X10*3/uL (0.00-0.03); Imm Gran Pct Auto 0.3 % (0.0-0.4); Lymphocytes Absolute Auto 2.4 X10*3/uL (1.2-4.9); Lymphocytes Percent Auto 23.4 % (20-40); Mean Corpuscular HGB Conc 33.6 g/dl (31.0-35.0); Mean Corpuscular Volume 83.3 fL (80.0-98.0); Mean Platelet Volume 9.4 fL (9.4-12.3); Monocytes Absolute Auto 0.6 X10*3/uL (0.1-1.2); Monocytes Percent Auto 5.7 % (2-11); Neutrophils Absolute Auto 7.1 x10*3/uL (2.0-8.3); Neutrophils Percent Auto 69.8 % (45-73); Platelet Count 284 X10*3/uL (160-400); Red Blood Count 4.86 X10*6/uL (4.20-5.50); Red Cell Distribution Width 13.8 % (11.0-16.0); White Blood Count 10.1 X10*3/uL (4.8-10.8)
[2024-10-25 17:12] LABS: Alanine Aminotransferase 24 U/L (0-31); Albumin Level 4.5 g/dL (3.5-5.0); Alkaline Phosphatase 82 U/L (39-117); Anion Gap 19 (12-20); Aspartate Amino Transferase 23 U/L (5-31); Bilirubin Total 0.4 mg/dL (0.0-1.0); Blood Urea Nitrogen 14 mg/dL (9-16); Calcium 9.1 mg/dL (8.4-10.2); Carbon Dioxide 21 mmol/L (22-29); Chloride 104 mmol/L (96-108); Creatinine Clr Calc Pharmacy 64.9; Estimated Glomerular Filt Rate 56; Glucose Random 86 mg/dL (60-115); Magnesium 1.7 mg/dL (1.6-2.6); Potassium 4.4 mmol/L (3.3-5.1); Sodium 140 mmol/L (135-145); Total Protein 7.7 g/dL (6.5-8.0)
[2024-10-25 17:32] LABS: Influenza A PCR NEGATIVE (Negative); Influenza B PCR NEGATIVE (Negative); Resp Syncy Virus RNA Qual PCR NEGATIVE (Negative); SARS COV2 PCR INHOUSE NEGATIVE (Negative)
[2024-10-25 20:54] VITALS: BP 131/70; PULSE 80; RESP 18; TEMP 36.9; O2SAT 96
[2024-10-25 21:51] LABS: Appearance Urine Cloudy; Color Urine Yellow; Glucose Urine UA Negative (Negative); Leukocyte Esterase Urine Large (3+) (Negative); Nitrite Urine Negative (Negative); PH 5.5 (5.0-9.0); Specific Gravity - Urine 1.015 (1.005-1.025); UMIC TRIGGER UACC YES; Urine Blood Negative (Negative); Urine Ketones 15 mg/dL (Negative); Urine Protein Negative (Neg-Trace)
[2024-10-25] MEDS: Milk of Magnesia 30 ML ORAL.SUSP PO (21:53)
[2024-10-25] MEDS: bisacodyL 5 MG TABLET.DR 10 MG PO (21:53)
--- NOTE | 2024-10-25 21:56 | PC.NURSE ---
Medicated per mar.
[2024-10-25 22:00] VITALS: BP 118/70; PULSE 85; RESP 14; TEMP 36.6; O2SAT 96
[2024-10-25 22:47] VITALS: BP 109/71; PULSE 72; RESP 16; TEMP 36.8; O2SAT 98
[2024-10-25 22:54] VITALS: BP 109/71; PULSE 72; RESP 16; TEMP 36.8; O2SAT 98
[2024-10-25 23:05] LABS: Bacteria Urine None Seen (None Seen); RBC Urine 0-2 /HPF (0-2); UACC Culture Trigger YES; WBC Urine >50 /HPF (0-5)
== END 2024-10-25 22:54 | disposition home or self-care (01) ==
PROVIDERS: Physician Assistant Medical; Emergency Provider Internal Medicine; PCP Internal Medicine
DX: K59.00 Constipation, unspecified (principal); R11.2 Nausea with vomiting, unspecified; R10.2 Pelvic and perineal pain; Z03.818 Encounter for observation for suspected exposure to other biological agents ruled out; Z79.899 Other long term (current) drug therapy
CPT/HCPCS: 0241U; 36415; 74018; 80053; 81001; 83735; 85025; 87086; 99283; 99284

== ENCOUNTER → 2024-10-25 16:04 | Outpatient (BNV) | payer OTHER, SELFPAY | PROVIDERS: PCP Internal Medicine; Visit Provider Radiology Diagnostic Radiology | DX: K59.00 Constipation, unspecified (principal) | CPT/HCPCS: 74018 ==

== ENCOUNTER 2024-11-08 07:07 | Outpatient (REF) | payer OTHER, SELFPAY ==
--- OUTSIDE RECORDS SUMMARY | 2024-11-08 07:10 | XMS_ITS | Data Portability ---
Author Organization [facility], [facility]LE[facility] Carmella Address [address] [place] [address] Care Team Providers Care Textile Supervisor Name Role Phone TIO MIKE Primary Care Provider Assessment No assessment recorded. Plan of Treatment Reminders Order Date Submit Date Provider Last Modified By Organization Details Last Modified Time Details Appointments RECHECK 15 2024 09:15A M Jaswant Cai MD Not available Not available Not available Lab None recorded. Referral None recorded. Procedures None recorded. Surgeries None recorded. Imaging XR, cervical spine, 4 or 5 view - 327 4v cspine 2024 025 [email or web address] 8 [facility], [address] [facility], [facility] [address], [place], [address], 10/26/2024 14:12:59 MRI, cervical spine, w/o contrast - mri cervical spine without contrast for neck pain with left upper extremity radiculop athy 2024 025 [facility] ([facility]), [address] [facility], [place], [address], 11/01/2024 16:59:14 Medication Orders Celebrex 200 mg capsule 2024 025 [email or web address] 8 [facility], [address] [place], [address], 10/26/2024 14:12:59 Patient TargetsNo targets recorded. Patient InstructionsNo instructions recorded. Reason for Referral None Reported. Results Created Date Observation Date Name Description Value Unit Range Abnormal Flag Note LastModifiedBy Organization Detail LastModifiedTime 10/26/19 25 10/26/2024 XR, cervi cuco spine , 4 or 5 view [email or web address] ?Encry pted=s hAaTro YD8dLq bEUv6g %2BXZw aYqtaq 0bqfl% 2Fg9IQ a4ajBk vP9nXo QUaueC m3YtLR FvZlgJ JJ8mAn HZtai3 [id number] AC0Kqb BUKe jKiQtr Mw INTERFACE [facility] [address], [place], [address], 10/26/2024 09:11:42 10/26/19 25 10/26/2024 XR, cervi cuco spine , 4 or 5 view [email or web address] ?Encry pted=s hAaTro YD8dLq bEUv6g %2BXZw aYqtaq 0bqfl% 2Fg9IQ a4ajBk vP9nXo QUaueC m3YtLR FvZlg JJ8mAn HZtai3 [id number] AC0Kqb BUKe jKiQtr MwF INTERFACE [facility] [address], [place], [address], 10/26/2024 09:11:45 11/01/19 25 10/31/2024 MRI, cervi cuco spine , w/o contr ast [facility] Access ion Number : [id number] Patien t Name: Jerry calabrese, Rosie Medica l Record Number : [id number] Date of : 1964 Date of Exam: 2024 Referr ing Physic talita: Jaswant Morales [address] [facility], [place] [address] Exam: MR Cervic al Spine (C-) CPT 47895 Room Descri ption: Pe Ell Siem Espr 1.5 MR Cervic al Spine (C-) CPT 46340 Spondy losis withou t myelop athy or radicu lopath y, cervic al region , , mri cervic al spine withou t contra st for neck pain with left upper extrem ity radicu lopath y Spondy losis withou t myelop athy or radicu lopath y, cervic al region , , mri cervic al spine withou t contra st for neck pain with left upper extrem ity radicu lopath y hollym - Standa rd Depart ment Protoc ol TECHNI QUE: MRI of the cervic al spine was perfor med withou t intrav enous contra st utiliz ing sagitt al T1, sagitt al T2, sagitt al STIR, axial gradie nt echo, and axial T2-artem ghted sequen dior. COMPAR AXEL: None. FINDIN GS: ALIGNM ENT, VERTEB UMBERTO, MARROW , AND DISCS: Alignm ent is normal . Verteb ral body height s are preser cynthia. There is no signif icant marrow signal abnorm ality. Interv ertebr al disc height s are mainta ined. There are anteri or endpla te osteop hytes at the C4-C5 throug h C6-C7 levels , most promin ent at C5-C6. ALTERNATIVE EDUCATION TEACHER IOR FOSSA AND CORD: Visual ized food services manager ior fossa is normal . The cervic al cord is normal in signal and calibe r. PARASP INAL TISSUE S: The visual ized soft tissue s of the neck are unrema rkable . The expect ed major cervic al flow voids are presen t. DETAIL ED FINDIN GS BY LEVEL: C2-C3: Left-s ided facet and uncove rtebra l joint spurri ng. There is mild left neural forami nal narrow ing. No signif icant canal stenos is or right neural forami nal narrow ing. C3-C4: Broad disc osteop hyte comple x with facet and uncove rtebra l joint spurri ng. There is mild spinal canal narrow ing. There is modera te to severe left and modera te right neural forami nal narrow ing. C4-C5: Broad disc osteop hyte comple x and ligame ntum flavum thicke alysha result ing in modera te canal stenos is. Facet and uncove rtebra l joint spurri ng result ing in severe bilate ral neural forami nal narrow ing, worse on the left. C5-C6: Disc osteop hyte comple x asymme tric toward s the left with facet and uncove rtebra l joint spurri ng. Mild spinal canal narrow ing. Modera te left and mild right neural forami nal narrow ing. C6-C7: Broad disc osteop hyte comple x and ligame ntum flavum thicke alysha result ing in mild to modera te canal stenos is. Uncove rtebra l joint spurri ng result ing in severe bilate ral neural forami nal narrow ing. C7-T1: Facet arthro thang. No signif icant canal stenos is or neural forami nal narrow ing. IMPRES ROXANNE: Multil evel degene rative change s of the cervic al spine as detail ed above. Varyin g degree s of modera te to severe neural forami nal stenos is from the C3-C4 throug h C6-C7 levels . Electr onical ly Signed By: Delia jung MD [address] [facility] ([facility]) [address], [place], [address], 11/02/2024 08:00:47 Result Notes None recorded. Procedures Surgical History None recorded. Imaging Results Imaging Date Name Status LastModified by Organiz ation Details LastModified Time 10/26/2024 XR, cervical spine, 4 or 5 view completed INTERFACE [facility] [address], [place], [address], 10/26/2024 09:11:42 10/26/2024 XR, cervical spine, 4 or 5 view completed INTERFACE [facility] [address], [place], [address], 10/26/2024 09:11:45 10/31/2024 MRI, cervical spine, w/o contrast completed [address] [facility] ([facility]) [address], [place], [address], 11/02/2024 08:00:47 Procedure Notes None recorded. Medical Equipment None Reported. Medications Name Sig Start Date Stop Date Status Note LastModified by Organization Details LastModified Time celecoxib 200 mg capsule TAKE ONE CAPSULE BY MOUTH EVERY DAY active Not Available Not Available No t Available atorvastatin 40 mg tablet TAKE ONE TABLET BY MOUTH DAILY AT BEDTIME active Not Available Not Available N ot Available gabapentin 400 mg capsule TAKE ONE CAPSULE BY MOUTH DAILY AT BEDTIME active Not Available Not Available N ot Available baclofen 20 mg tablet TAKE ONE TABLET BY MOUTH TWICE A DAY active Not Available Not Available No t Available baclofen 10 mg tablet TAKE ONE TABLET BY MOUTH TWICE A DAY active Not Available Not Available No t Available lisinopril 5 mg tablet TAKE ONE TABLET BY MOUTH EVERY DAY active Not Available Not Available No t Available polyethylene glycol 3350 17 gram/dose oral powder active Not Available Not Available Not Available metformin ER 500 mg tablet,exten ded release 24 hr TAKE TWO TABLETS BY MOUTH TWICE A DAY active Not Available Not Available No t Available escitalopram 20 mg tablet TAKE ONE TABLET BY MOUTH DAILY AT BEDTIME active Not Available Not Available N ot Available aripiprazole 5 mg tablet TAKE ONE TABLET BY MOUTH EVERY DAY active Not Available Not Available No t Available bupropion HCl XL 300 mg 24 hr tablet, extended release TAKE ONE TABLET BY MOUTH EVERY MORNING active Not Available Not Available No t Available FreeStyle Lite Strips USE TO TEST BLOOD SUGAR ONCE DAILY active Not Available Not Available N ot Available ropinirole ER 4 mg tablet,exten ded release 24 hr TAKE ONE TABLET BY MOUTH DAILY AT BEDTIME active Not Available Not Available N ot Available Ozempic 1 mg/dose (4 mg/3 mL) subcutaneous pen injector INJECT 1MG UNDER THE SKIN ONCE A WEEK active Not Available Not Available No t Available Ozempic 2 mg/dose (8 mg/3 mL) subcutaneous pen injector INJECT 2MG SUBCUTANEOU SLY ONCE A WEEK active Not Available Not Available No t Available Vitals None Recorded Social History None recorded. Functional Status None recorded. Mental Status None recorded. Family History Nothing Reported. Medical History No medical history recorded. Gynecological HistoryNo gynecological history recorded. Obstetrics History GPAL:G 0 P 0 0 0 0 Past Encounters Encounter ID Performer Location Encounter Start Date Encounter Closed Date Diagnosis/Indication Diagnosis SNOMED-CT Code Diagnosis ICD10 Code Diagnosis Note [id number] Jaswant Cai MD [facility] [place] [address] [place] [address] 10/26/2024 08:42:17 10/26/2024 09:44:36 Cervical spondylosis 818520187 M47.812 Cervical radiculopathy 99969432 M54.12 Health Concerns Section Related Observation LastModified by Organization Detai ls LastModified Time None Recorded Concern Status LastModified by Organization Details LastModified Time None Recorded Advance Directives Directive None Recorded Payers Encounter Date Sequence Insurance Name Policy Number Policy Lopez Covered Member ID Lopez Member ID Guarantor Name 10/26/2024 1 [employer] [id number] Rosie Guzman [id number] Rosie Guzman Notes Date Note Type Note Provider Name and Address Organization Details Recorded Time 5 text/html Left Cervical Radiculopathy with Upper Extremity Symptoms Subjective:HPI: 59-year-old female presents with progressive left arm pain and paresthesias since early September 2024. Patient reports tingling in the middle and ring fingers, with all fingers except thumb affected when symptoms are severe. She experiences lateral left forearm pain with sensation of compression. Symptoms improve with right lateral neck flexion. Denies balance problems or hand clumsiness. 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 No current medications for this condition.Medical History: History of thyroid/parathyroid surgery, Type 2 Diabetes (improved with Ozempic), history of right renal cell carcinoma with partial nephrectomy (<1% of kidney removed), normal current kidney function. Takes gabapentin for restless body syndrome. Objective:General: Alert and oriented, normal mood and affectRespiration Rate 14-16Height and Weight per aboveNormal Development without evidence of gross deformitiesOriented to person/place/timeNormal mood and affectNo swelling in bilateral lower extremitiesHead and Neck: Neck was supple without evidence of defects. No atrophy of the neck was visualized. Left upper extremity: No tenderness over the lateral epicondyle. Can fully extend the digits and make a composite fist. Spine:Examination of the spine demonstrated no crepitation with palpation of the spinous process.The patient was able to flex and extend. No instability of the spine was demonstrated on physical exam. The spine had good strength and tone.No scars noted. No skin or hair changes???Gait: Normal heel and toe walkingCervical Spine: Limited cervical extension. No crepitation with palpation of spinous processes. Mild tenderness noted.Motor Strength: 5/5 throughout bilateral upper extremitiesSensation: Normal strength and sensation in bilateral upper extremitiesReflexes: 2+ and symmetric in biceps and brachioradialisSpecial Tests: Negative Srivastava's test Imaging and Testing:I independently reviewed cervical spine radiographs from outside Hospital (09/23/2024) and today's 4 view C-spine radiographs noting AP, lateral, flexion and extension (10/26/2024):AP View: Unremarkable except for surgical clips from previous thyroid surgeryLateral View: Thoracic kyphosis noted. Large anterior bridging osteophytes at C4-5, C5-6. Potential fusion at C5-6. Facet spondylosis presentFlexion View: Mild anterolisthesis of C4 on L5Miuiazxbo View: Improved alignment compared to flexionNo prior MRI studies available for review Assessment:1. Left cervical radiculopathy, likely C6-7 distribution (ICD-10: M54.12)2. Cervical spondylosis with anterior osteophyte formation (ICD-10: M47.812)3. Cervical anterolisthesis C4-5 with flexion (ICD-10: M43.12)Failed conservative treatment including physical therapy Plan:1. Ordering cervical spine MRI without is back from x-ray contrast to evaluate for neural compression2. Prescribing Celebrex 200mg daily (chosen over other NSAIDs due to better GI tolerance)3. Continue physical therapy4. Avoiding oral steroids due to diabetes5. Follow up after MRI completion for review of results and treatment planning Patient Instructions and Notes:1. Take Celebrex 200mg once daily. Do not combine with other NSAIDs (ibuprofen, naproxen)2. May take acetaminophen (Tylenol) if needed for breakthrough pain3. Continue current physical therapy program4. Schedule MRI of cervical spine5. Return to clinic after MRI completion6. Seek immediate medical attention if new or worsening neurological symptoms develop ??? Jaswant Cai MD [address] [place] [address] [address], [place], [address], [facility] - [facility] 10/26/2024 09:44:33 OBGyn Episode No OBEpisode recorded.
--- OUTSIDE RECORDS SUMMARY | 2024-11-08 07:11 | XMS_ITS | Continuity of Care Document ---
Author Organization [facility] Address [address] [place] [id number]- Care Team Providers Care Roll Plugger Name Role Phone Pedro Tate MD, Rylie Primary Care Physician [phone] Encounter 10/31/24 - 11/01/[address] [address] Attending Physician: Not on Staff, Attending MD Referring Physician: Not on Staff, Referring MD Encounter Type: [facility] Allergies, Adverse Reactions, Alerts No Known Allergies Medications Abilify 5 mg oral tablet 5 mg, 1, tablet, By Mouth, Daily in AM, Refills 0, Maintenance, 03/01/20 10:11:00 AM EDT Start Date: 03/01/20 Status: Ordered Repeat number: 1 Adult Aspirin 81 mg oral tablet, chewable 1 tablet = 81 mg, Daily, 0 Refills, Maintenance, 06/14/19 8:11:08 AM EDT Start Date: 06/14/19 Status: Ordered Repeat number: 1 amitriptyline 10 mg oral tablet 10 mg, 1, tablet, By Mouth, Daily at bedtime, Maintenance, 05/24/20 10:18:00 AM EDT Start Date: 05/24/20 Status: Ordered Repeat number: 1 atorvastatin 20 mg oral tablet 1 tablet = 20 mg, By Mouth, Daily in AM, 0 Refills, Maintenance, 06/14/19 8:10:08 AM EDT, Tablet Start Date: 06/14/19 Status: Ordered Repeat number: 1 Citracal 250 mg + D 1 tablet, By Mouth, 2 times a day, 0 Refills, Maintenance, 06/14/20 1:41:00 PM EDT Start Date: 06/14/20 Status: Ordered Repeat number: 1 lisinopril 5 mg oral tablet 5 mg, 1, tablet, By Mouth, Daily in AM, Refills 0, Maintenance, 06/14/19 8:10:57 AM EDT Start Date: 06/14/19 Status: Ordered Repeat number: 1 metFORMIN 500 mg oral tablet 1 tablet = 500 mg, By Mouth, Daily in AM, 0 Refills, Maintenance, 06/14/19 8:08:46 AM EDT Start Date: 06/14/19 Status: Ordered Repeat number: 1 pramipexole 0.5 mg oral tablet 1 tablet = 0.5 mg, By Mouth, Daily at supper, Maintenance, 05/24/20 10:17:00 AM EDT, Tablet Start Date: 05/24/20 Status: Ordered Repeat number: 1 see instructions see instructions, See Instructions, # 1 each, Refills 0, Tot. Refills 0, Maintenance, Lab slip for blood work: have serum calcium and serum albumin checked in 1 week (06/06), 05/30/20 1:59:00 PM EDT, Supply Start Date: 05/30/20 Status: Ordered Quantity: 1.0 Unit: each Repeat number: 1 Trulicity Pen 0.75 mg/0.5 mL subcutaneous solution 0.5 mL = 0.75 mg, Subcutaneous Injection, Every week, fridays, 0 Refills, Maintenance, 06/14/19 8:08:30 AM EDT, Solution Start Date: 06/14/19 Status: Ordered Repeat number: 1 Vitamin D3 oral tablet = 1,000 mg, By Mouth, Daily, 0 Refills, Maintenance, 07/21/19 10:04:05 AM EDT Start Date: 07/21/19 Status: Ordered Repeat number: 1 Wellbutrin XL 300 mg/24 hours oral tablet, extended release 1 tablet = 300 mg, By Mouth, Daily in AM, 0 Refills, Maintenance, 06/14/19 8:10:46 AM EDT, ER Tablet Start Date: 06/14/19 Status: Ordered Repeat number: 1 Problem List Condition Confirmation Course Effective Dates Status Health Status Informant Anxiety Confirmed Active Renal cell carcinoma of right kidney Confirmed Active Depression Confirmed Active Diabetes mellitus Confirmed Active HLD (hyperlipidemia) Confirmed Active HTN (hypertension) Confirmed Active Primary hyperparathyroidism Confirmed Active Postop check Confirmed Active Results Radiology Reports * Exam Date Time Procedure Performing Provider Status 10/31/24 8:21 PM MRI Cervical Spine W/O Contrast Auth (Verified) Notes: (MRI Cervical Spine W/O Contrast) Reason For Exam: Spondylosis without myelopathy or radiculopathy,cervical region, , mri cervical spine without contrast for neck pain with l;Spondylosis without myelopathy or radiculopathy, cervical region, , mri cervical spine without contrast for neck pain with l RESULT: MRI Cervical Spine W/O Contrast [facility] VISIT NUMBER :[id number] Patient Name: Rosie Rosenberg Date of : 1965 Date of Exam: 10-31-2024 Referring Physician: Jaswant Cai [address] [place] [address] [address] [place] [address] Exam: MR Cervical Spine (C-) CPT 66766 Room Description: [facility] Espr 1.5 MR Cervical Spine (C-) CPT 98566 Spondylosis without myelopathy or radiculopathy, cervical region, , mri cervical spine without contrast for neck pain with left upper extremity radiculopathy Spondylosis without myelopathy or radiculopathy, cervical region, , mri cervical spine without contrast for neck pain with left upper extremity radiculopathy [facility] - Standard Department Protocol TECHNIQUE: MRI of the cervical spine was performed without intravenous contrast utilizing sagittal T1, sagittal T2, sagittal STIR, axial gradient echo, and axial T2-weighted sequences. COMPARISON: None. FINDINGS: ALIGNMENT, VERTEBRAE, MARROW, AND DISCS: Alignment is normal. Vertebral body heights are preserved. There is no significant marrow signal abnormality. Intervertebral disc heights are maintained. There are anterior endplate osteophytes at the C4-C5 through C6-C7 levels, most prominent at C5-C6. POSTERIOR FOSSA AND CORD: Visualized posterior fossa is normal. The cervical cord is normal in signal and caliber. PARASPINAL TISSUES: The visualized soft tissues of the neck are unremarkable. The expected major cervical flow voids are present. DETAILED FINDINGS BY LEVEL: C2-C3: Left-sided facet and uncovertebral joint spurring. There is mild left neural foraminal narrowing. No significant canal stenosis or right neural foraminal narrowing. C3-C4: Broad disc osteophyte complex with facet and uncovertebral joint spurring. There is mild spinal canal narrowing. There is moderate to severe left and moderate right neural foraminal narrowing. C4-C5: Broad disc osteophyte complex and ligamentum flavum thickening resulting in moderate canal stenosis. Facet and uncovertebral joint spurring resulting in severe bilateral neural foraminal narrowing, worse on the left. C5-C6: Disc osteophyte complex asymmetric towards the left with facet and uncovertebral joint spurring. Mild spinal canal narrowing. Moderate left and mild right neural foraminal narrowing. C6-C7: Broad disc osteophyte complex and ligamentum flavum thickening resulting in mild to moderate canal stenosis. Uncovertebral joint spurring resulting in severe bilateral neural foraminal narrowing. C7-T1: Facet arthropathy. No significant canal stenosis or neural foraminal narrowing. IMPRESSION: Multilevel degenerative changes of the cervical spine as detailed above. Varying degrees of moderate to severe neural foraminal stenosis from the C3-C4 through C6-C7 levels. Electronically Signed By: Delia Sandoval MD Dictated By: Not on Staff , FITO RODRIGUEZ Dictated Date/Time: 11/01/24 4:59 pm Reviewed By: Not on Staff , FITO RODRIGUEZ Signed By: Not on Staff , FITO RODRIGUEZ Signed Date/Time: 11/01/24 4:59 pm Transcribed By: TS Transcribed Date/Time: 11/01/24 4:59 pm Patient Care team information Care Team Personnel Name: Sheri Solares RN Position: S RN Member Role: Primary Care Nurse Name: Pedro Tate MD , Malinda Gray Position: Reference Physician Member Role: PCP Address: [address] [place] [address] [address] [place] [id number] Telecom: Name: Misty Gonzalez RN Position: S RN Member Role: Primary Care Nurse Care Team Related Persons Name: FRAN TRINH Name: EJ ROSENBERG Insurance Providers Guarantor name: [facility] Plan Information #: 1 Payer: [email or web address] Member Number: NA Policy Number: NA Group Number: NA
--- OUTSIDE RECORDS SUMMARY | 2024-11-08 07:11 | XMS_ITS | Continuity of Care Document ---
Author Organization [place] - [facility], [facility] [place] Address [address] [place] [address] Care Team Providers Care Rcp Name Role Phone TIO MIKE Primary Care [...] [phone] cspine 2024 025 [email or web address] 8 [facility], [address], [address], [place], [address], 10/26/2024 14:12:59 MRI, cervical spine, w/o contrast - mri cervical spine without contrast for neck pain with left upper extremity radiculop athy 2024 025 [facility] ([facility]), [address], [place], [address], 11/01/2024 16:59:14 Medication Orders Celebrex 200 mg capsule 2024 025 [email or web address] 8 [facility], [address] [place], [address], 10/26/2024 14:12:59 Patient TargetsNo targets recorded. Patient [...] a4ajBk vP9nXo QUaueC m3YtLR FvZlgJ JJ8mAn HZtai3 [id number] AC0Kqb BUKe jKiQtr MwF INTERFACE [facility] [address], [place], [address], 10/26/2024 09:11:42 10/26/19 25 10/26/2024 XR, cervi cuco spine , 4 or 5 view http:/ [email or web address] ?Encry pted=s hAaTro YD8dLq bEUv6g %2BXZw aYqtaq 0bqfl% 2Fg9IQ a4ajBk vP9nXo QUaueC m3YtLR FvZlgJ JJ8mAn HZtai3 [id number] AC0Kqb BUKe jKiQtr MwF INTERFACE [facility] [address], [place], [address], 10/26/2024 09:11:45 11/01/19 25 10/31/2024 MRI, cervi cuco spine , w/o contr ast [facility] Access ion Number : [id number] Patien t Name: Jerry calabrese, Rosie Medica l Record Number : [id number] Date of : 1964 Date of Exam: 2024 Referr ing Physic talita: Jaswant Morales [address] [facility], [place] [address] Exam: MR Cervic al Spine (C-) CPT 11218 Room Descri ption: [facility] Espr 1.5 MR Cervic al Spine (C-) CPT 56723 Spondy losis withou t myelop athy or [...] levels , most promin ent at C5-C6. 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 The cervic [...] . Electr onical ly Signed By: Delia [email or web address] [facility] ([facility]) [address], [place], [address], 11/02/2024 08:00:47 Result Notes None recorded. Medical Equipment None Reported. [...] SNOMED-CT Code Diagnosis ICD10 Code Diagnosis Note [id number] Jaswant Cai MD [facility] [place] [address] [place] [address] 10/26/2024 08:42:17 10/26/2024 09:44:36 Cervical spondylosis 387285701 M47.812 Cervical radiculopathy 73735242 M54.12 Health Concerns Section Related Observation LastModified by Organization Detai ls LastModified Time None Recorded Concern Status LastModified by Organization Details LastModified Time None Recorded Payers Encounter Date Sequence Insurance Name Policy Number Policy Lopez Covered Member ID Lopez Member ID Guarantor Name 10/26/2024 1 [employer] Constant [employer] (REAL SAMURAIO) [id number] Rosie Barlow Schoeffel [id number] Rosie Guzman Notes Date Note Type Note [...] problems or hand clumsiness. 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 No skin or hair changes?Gait: Normal heel and toe walkingCervical Spine: Limited [...] presentFlexion View: Mild anterolisthesis of C4 on [id number] View: Improved alignment compared to flexionNo prior [...] if new or worsening neurological symptoms develop ? Jaswant Cai MD [address] [place] [address] [address], [place], [address], [facility] 10/26/2024 09:44:33 OBGyn Episode No OBEpisode recorded.
[2024-11-08 08:28] LABS: Alanine Aminotransferase 20 U/L (0-31); Albumin Level 4.1 g/dL (3.5-5.0); Alkaline Phosphatase 73 U/L (39-117); Anion Gap 14 (12-20); Aspartate Amino Transferase 23 U/L (5-31); Bilirubin Total 0.2 mg/dL (0.0-1.0); Blood Urea Nitrogen 12 mg/dL (9-16); Calcium 9.1 mg/dL (8.4-10.2); Carbon Dioxide 26 mmol/L (22-29); Chloride 107 mmol/L (96-108); Cholesterol 125 mg/dL (<200); Estimated Glomerular Filt Rate > 60; Glucose Fasting 102 mg/dL (60-99); HDL Cholesterol 50 mg/dL (>40); LDL Cholesterol Calculated 59 mg/dL (<100); Potassium 4.3 mmol/L (3.3-5.1); Sodium 143 mmol/L (135-145); Total Protein 6.9 g/dL (6.5-8.0); Triglycerides 84 mg/dL (<150)
[2024-11-08 08:42] LABS: Vitamin D 25-OH Total 54.7 ng/mL (>30)
[2024-11-08 08:49] LABS: Folate 9.1 ng/mL (> or = 4.0); Vitamin B12 473 pg/mL (200-900)
[2024-11-08 08:58] LABS: Creatinine Urine 173.42 mg/dL; Microalbum/Creatinine Ratio Ur 7.4 ug/mg cr (<30)
== END 2024-11-08 07:08 | disposition home or self-care (01) ==
LOC: HO.LAB 07:07
PROVIDERS: PCP Internal Medicine; Visit Provider Internal Medicine
DX: E11.9 Type 2 diabetes mellitus without complications (principal); E53.8 Deficiency of other specified B group vitamins; E78.5 Hyperlipidemia, unspecified; E55.9 Vitamin D deficiency, unspecified
CPT/HCPCS: 36415; 80053; 80061; 82043; 82306; 82570; 82607; 82746

== ENCOUNTER 2024-11-14 08:08 | Outpatient (AMB) | payer OTHER, SELFPAY ==
--- NOTE | 2024-11-14 08:12 | MHC.PC.OV ---
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 Required: No Accompanied by: Self / Same As Patient Allergies No Known Allergies [No Known Allergies*] Allergy (Verified 11/14/24 08:28) Medication List - Last Reconciled 11/14/24 by Malinda Tate MD aripiprazole 5 mg PO DAILY aspirin (Adult Aspirin Regimen) 81 mg PO DAILY atorvastatin 40 mg PO BEDTIME 90 days baclofen 20 mg PO BID blood sugar diagnostic (FreeStyle Lite Strips) once a day blood-glucose meter (FreeStyle Lite Meter kit) As directed bupropion HCl XL (Wellbutrin XL) 300 mg PO QAM cholecalciferol (vitamin D3) 25 mcg PO DAILY 90 days escitalopram oxalate (Lexapro) 20 mg PO DAILY gabapentin 400 mg PO BEDTIME lancets (FreeStyle Lancets) once a day lisinopril 5 mg PO DAILY metformin ER 1,000 mg (2 x 500 mg) PO BID polyethylene glycol 3350 (Miralax) 17 grams PO DAILY semaglutide (Ozempic) 2 mg (0.75 mL) subcut QWEEK 4 weeks Tobacco use date assessed: 09/23/24 Dental Screening Dental Screen Date: 09/23/24 HPI HPI Comments History of Present Illness Details This is a 59-year-old female with diabetes mellitus type 2, hypertension, dyslipidemia, history of kidney cancer, cervical radiculopathy and mild major depression that comes today for follow-up on her conditions. Last A1c was 5.5% a month ago and I will decrease metformin. Blood pressure stable. LDL within goal and I will decrease statins. Has history of kidney cancer that is in remission and follow by Nephrology. Still complains of some bilateral arm numbness secondary to cervical radiculopathy and limited range of motion in left lateral neck movements that is currently taking physical therapy and is follow by ortho. Denies any chest pain or shortness on breath. [facility] Medical History (Updated 11/14/24 @ 08:43 by Malinda Tate MD) Hyperparathyroidism Mild ascending aorta dilation Class 2 severe obesity with serious comorbidity and body mass index (BMI) of 37.0 to 37.9 in adult GERD (gastroesophageal reflux disease) Mild recurrent major depression Class 2 severe obesity with serious comorbidity and body mass index (BMI) of 38.0 to 38.9 in adult Cancer of right kidney Left wrist pain Obesity (BMI 30-39.9) Depression Non-toxic multinodular goiter Hypertension Dyslipidemia Diabetes type 2, controlled Primary hyperparathyroidism Surgical History Status post Mohs micrographic surgery for basal cell carcinoma (BCC) Status post fine needle aspiration History of colonoscopy History of kidney surgery History of parathyroidectomy History of removal of ovarian cyst History of back surgery Family History Father Diabetes Hypertension High cholesterol Skin cancer Mother Dementia Mental health disorder Family/Other History of breast cancer Social History Housing: House Alcohol intake: never Patient Tobacco Use Status: Never used Tobacco e-Cigarette/Vaping Use: Never Used Second Hand Smoke Exposure: No service: No Current occupational status: employed Current occupational exposures/hazards: No Cognitive needs: No Hearing needs: No Vision needs: No Questionnaire Thrive Questionnaire Date Thrive assessed: 09/23/24 AUDIT C Alcohol Use Questionnaire (AUDIT-C) 1. How often do you have a drink containing alcohol?: Never Total Score: 0 Score Reviewed/Action Taken: No AMRIT-7 AMB Questionnaire AMRIT-7 Date AMRIT - 7 assessed: 09/23/24 Source: Developed by Drs. Rubens Langston, Mary Fritz, Taiwo Puri and colleagues, with an educational aurora from [employer]. Review of Systems Const All systems reviewed & are unremarkable except as noted in HPI and below Card Denies chest pain at rest, Denies chest pain with activity, Denies edema, Denies irregular heart rhythm, Denies claudication, Denies dyspnea, Denies dyspnea on exertion, Denies orthopnea, Denies paroxysmal nocturnal dyspnea and Denies slow heart rate Resp Denies cough, Denies dyspnea and Denies dyspnea on exertion GI Denies abdominal pain, Denies change in bowel habits, Denies excessive flatus, Denies nausea and Denies vomiting Denies urinary incontinence, Denies urinary hesitancy and Denies urinary urgency Physical exam (Primary Care) Vital Signs: Last Vital Signs BP 108/66 11/14/24 08:13 BMI result Body Mass Index 28.4 Tobacco/Smoking Status: Tobacco use Status Tobacco use date assessed 09/23/24 11/14/24 08:17 Patient Tobacco Use Status Never used Tobacco 11/14/24 08:17 e-Cigarette/Vaping Use Never Used 11/14/24 08:17 Thrive Assessment: Date of Thrive Assessment Date Thrive assessed 09/23/24 11/14/24 08:17 Neck Other: Limited left lateral neck movements. Resp Effort & Inspection: normal respiratory effort Auscultation: clear to auscultation bilaterally Cardio Jugular venous distension: no JVD Rate: regular rate Rhythm: regular rhythm Heart sounds: S1 normal heart sound present and S2 normal heart sound present Psych Appearance: grossly normal Coding Level of Care Code Est Pt Level 4 (88021) Complex EM visit Add On G2211 Diagnoses Cervical radiculopathy M54.12 Type 2 diabetes mellitus without complication, without long-term current use of insulin E11.9 Diabetes mellitus type: type 2 Diabetes mellitus long term acute care registered nurse insulin use: without long term acute care registered nurse use Diabetes mellitus complication status: without complication Cancer of right kidney C64.1 Mild recurrent major depression F33.0 Primary hypertension I10 Hypertension type: primary hypertension Dyslipidemia E78.5 Time Spent (min) 22 Assessment & Plan Assessment & Plan (1) Cervical radiculopathy: Code(s): M54.12 - Radiculopathy, cervical region Category: Medical Plan: Continue physical therapy. (2) Diabetes mellitus: Code(s): E11.9 - Type 2 diabetes mellitus without complications Category: Medical Qualifiers: Diabetes mellitus type: type 2 Diabetes mellitus group home insulin use: without long term acute care registered nurse use Diabetes mellitus complication status: without complication Qualified Code(s): E11.9 - Type 2 diabetes mellitus without complications Plan: Decrease metformin. Continue Ozempic. A1c goal is equal or less than 7%. (3) Cancer of right kidney: Comment: Renal cell carcinoma. Status post partial nephrectomy 2019. Code(s): C64.1 - Malignant neoplasm of right kidney, except renal pelvis Category: Medical Plan: Follow-up with nephrology. (4) Mild recurrent major depression: Code(s): F33.0 - Major depressive disorder, recurrent, mild Category: Medical Plan: Continue Abilify and bupropion. Follow-up with psychiatry. (5) Hypertension: Code(s): I10 - Essential (primary) hypertension Category: Medical Qualifiers: Hypertension type: primary hypertension Qualified Code(s): I10 - Essential (primary) hypertension Plan: Continue lisinopril. Blood pressure goal is equal or less than 130/80. (6) Dyslipidemia: Code(s): E78.5 - Hyperlipidemia, unspecified Category: Medical Plan: Decrease statins. LDL goal is less than 70 Orders: Orders Microalbumin, Random (w Creat) 6 Months R80.9 - Proteinuria, unspecified Lipid Panel 6 Months E78.5 - Hyperlipidemia, unspecified Comprehensive Tracy. Panel Fast 6 Months E11.9 - Type 2 diabetes mellitus without complications Medications: New atorvastatin 20 mg PO BEDTIME 90 tabs 1RF 90 days Changed From metformin ER 1,000 mg (2 x 500 mg) PO BID 120 tabs 6RF E11.9 - Type 2 diabetes mellitus without complications To metformin ER 500 mg PO BID 180 tabs 2RF 90 days E11.9 - Type 2 diabetes mellitus without complications Discontinued atorvastatin Discontinued Reason: Patient Completed Course 40 mg PO BEDTIME 90 days 90 tabs 1RF E78.5 - Hyperlipidemia, unspecified
[2024-11-14 08:13] VITALS: BP 108/66; BMI 28.4
== END 2024-11-14 08:41 | disposition home or self-care (01) ==
PROVIDERS: PCP Internal Medicine; Visit Provider Internal Medicine
DX: M54.12 Radiculopathy, cervical region (principal); E11.9 Type 2 diabetes mellitus without complications; C64.1 Malignant neoplasm of right kidney, except renal pelvis; F33.0 Major depressive disorder, recurrent, mild; I10 Essential (primary) hypertension; E78.5 Hyperlipidemia, unspecified

== ENCOUNTER 2025-01-02 09:57 | Outpatient (RCR) | payer OTHER, SELFPAY ==
--- NOTE | 2024-10-11 16:19 | MHC.PT.EP ---
[facility] [place] Office [place] Office [place] Office [address] [place] [address] [phone] F: [phone] F: [phone] F: [phone] F: [phone] Physical Therapy Plan of Care Date of Evaluation: 10/11/24 Date of Surgery: Diagnosis: cervical radiculopathy ( Dx) RS Disc involvement C7 level on L side as her radicular sxs centralize and reduce in intensity with R sidebending and manual cervical traction Assessment: Rosie is a pleasant 59 y.o. female who is referred to PT by Dr. Malinda Tate MD, with Dx of cervical radiculopathy. She presents with disc involvement C7 level on L side as her radicular sxs centralize and reduce in intensity with R sidebending and manual cervical traction. Patient impairments include pain, L UE radicular sxs to hand, limited cervical AROM, poor cervical posture. Patient current functional limitations are looking up, lying prone, lie on L side, sleeping. Patient will benefit from skilled PT to address aforementioned impairments and functional limitations to meet established goals. Frequency and Duration: The patient will be seen 2x/week for 4 weeks Short Term Goals: 2 weeks Rosie demonstrates neutral cervical spine posture. Rosie is able to demonstrate understanding of centralization vs peripheralization of cervical sxs. 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 Rosie presents with increased cervical extension 20 degrees bilaterally to look up without sxs for ADLs. Treatment Plan: Modalities to reduce pain, spasms and effusion. Manual therapy to restore motion and function. Therapeutic exercise to improve strength and flexibility. Neuromuscular re-education for posture and balance. Therapeutic activities to return to functional activities of daily living. Electronically signed by: Evelyn Sarmiento, PT, DPT Please sign and return to therapist. Thank you for your referral.
--- NOTE | 2025-01-02 12:40 | MHC.PT.DC ---
[facility] [place] [facility] [place] [facility] [place] [facility] [address] [phone] F: [phone] F: [phone] F: [phone] F: [phone] Physical Therapy Discharge Report Diagnosis: cervical radiculopathy (MD Cuello) RS Disc involvement C7 level on L side as her radicular sxs centralize and reduce in intensity with R sidebending and manual cervical traction Date of Surgery: Date of Evaluation: 10/11/24 Date of Discharge: 01/02/25 Treatments to Date: 20 Cancellations to Date: No Shows to Date: Discharge Status: Achieved Goals Improved Function Independent with HEP Discharge Summary: Rosie presents with improved cervical spine posture, which has resulted in experiencing no pain and no L UE radicular sxs. She presents with cervical spine AROM WFL without pain and full strength in bilateral UEs. She is appropriate for discharge from PT. She responded very well to cervical traction and therapeutic exercises/activities. She was given information regarding home cervical traction unit if she would like to utilize at home. Electronically signed by: Evelyn Sarmiento, PT, DPT Please sign and return to therapist. Thank you for your referral.
== END 2025-01-02 12:40 | disposition home or self-care (01) ==
LOC: HO.PT 09:57
PROVIDERS: PCP Internal Medicine; Visit Provider Internal Medicine
DX: M54.12 Radiculopathy, cervical region (principal)
CPT/HCPCS: 97012; 97110; 97140; 97161; 97530; 97535

== ENCOUNTER 2025-01-12 15:17 | Outpatient (AMB) | payer OTHER, SELFPAY ==
--- NOTE | 2025-01-12 15:26 | MHC.OFFWIV ---
Intake Vital Signs 01/12/25 15:31 Weight 176 lb BP 118/72 Blood Pressure Location Rt brachial Position Sitting Pulse 75 Pulse Source Pulse Oximeter Temp 98.2 F Temp Source Oral Pulse Oximetry (%) 99 Oxygen Delivery Method Room Air Intake Visit Reasons: EP Sore throat Intake Note: Patient here for sore throat and headache that has been present for about 2 weeks. Patient Tobacco Use Status: Never used Tobacco Allergies No Known Allergies [No Known Allergies*] Allergy (Verified 01/12/25 15:31) Do you need a note to return to daycare/school/sports/work: No HPI HPI Comments History of Present Illness Details History - The patient is a 59 year old female presenting with a sore throat and headache. - The sore throat has been present for about two weeks. - She has not experienced fever, respiratory symptoms such as shortness of breath or wheezing, nor nasal symptoms aside from the sore throat. - Qoxd-vyq-eirvsdw Tylenol has been used three to four times daily for symptom relief, effectively reducing both the sore throat and headache. - Tongue pain is present, believed by the patient to be related to her sore throat. - She has a history of seasonal allergies, with current treatment using cetirizine proving ineffective for her symptoms. Physical Exam General: Cooperative, healthy appearing, comfortable and no acute distress Orientation/consciousness: Patient oriented x3 Limitations: No limitations Head: Normal to inspection Ears: Hearing grossly normal bilaterally, external ears normal and TM's normal bilaterally Nose: Normal external nose present, Normal nares present and No nasal discharge present Face and sinus: Normal facial exam and Yes sinuses nontender Mouth: Normal oral and palatal mucosa present and moist mucous membranes Throat: Yes tonsils normal, Yes uvula midline. Posterior oropharynx with erythema and cobblestoning Eyes: Appearance normal, both eyes and all related structures Neck: Normal visual inspection Respiratory: Clear to auscultation bilaterally. Normal respiratory effort, able to speak in complete sentences, no respiratory distress, not tachypneic, no tripod positioning and no use of accessory muscles Cardiovascular: Regular rate and rhythm. Normal S1 and S2 Skin: No rashes or lesions noted Neuro: Patient oriented x3 Extremities: Normal to inspection and Yes no clubbing, cyanosis or edema [facility] Medical History (Updated 01/12/25 @ 15:50 by Shaina Masha, PA-C) Hyperparathyroidism Mild ascending aorta dilation Class 2 severe obesity with serious comorbidity and body mass index (BMI) of 37.0 to 37.9 in adult GERD (gastroesophageal reflux disease) Mild recurrent major depression Class 2 severe obesity with serious comorbidity and body mass index (BMI) of 38.0 to 38.9 in adult Cancer of right kidney Left wrist pain Obesity (BMI 30-39.9) Depression Non-toxic multinodular goiter Hypertension Dyslipidemia Diabetes type 2, controlled Primary hyperparathyroidism Surgical History Status post Mohs micrographic surgery for basal cell carcinoma (BCC) Status post fine needle aspiration History of colonoscopy History of kidney surgery History of parathyroidectomy History of removal of ovarian cyst History of back surgery Family History Father Diabetes Hypertension High cholesterol Skin cancer Mother Dementia Mental health disorder Family/Other History of breast cancer Social History Housing: House Alcohol intake: never Patient Tobacco Use Status: Never used Tobacco e-Cigarette/Vaping Use: Never Used Second Hand Smoke Exposure: No service: No Current occupational status: employed Current occupational exposures/hazards: No Cognitive needs: No Hearing needs: No Vision needs: No Review of Systems Const All systems reviewed & are unremarkable except as noted in HPI and below Physical Exam Vital Signs: Last Vital Signs Temp 98.2 F 01/12/25 15:31 Pulse 75 01/12/25 15:31 BP 118/72 01/12/25 15:31 Pulse Ox 99 01/12/25 15:31 Oxygen Delivery Method Room Air 01/12/25 15:31 Results AMB Rapid Strep AMB Rapid Strep Negative Last Edit by ANTONIO Hayes on 01/12/25 15:52 Assessment & Plan Assessment & Plan (1) Seasonal allergies: Code(s): J30.2 - Other seasonal allergic rhinitis Plan: VSS, pt well appearing and PE remarkable for posterior oropharynx erythema and cobblestoning. Rapid strep negative. Given the patient's presentation with a sore throat and headache, most likely secondary to allergies, a change in allergy medication from cetirizine to another option such as loratadine was recommended. An additional therapeutic recommendation includes the use of Fluticasone nasal spray Flonase for congestion management with proper usage direction. A prescription was sent to the patient's pharmacy. The potential benefits of using Benadryl at night for drying congested areas were discussed. The patient was advised on the expected timeline for symptom improvement and instructed to seek follow-up with PCP if symptoms remain unresolved, considering allergies as the most probable cause. Patient was informed and verbally consented to the use of an ambient scribe for clinic note documentation during this visit Medications: New fluticasone propionate 50 mcg/actuation administer into each nostril 1 spray intranasal Q12H 16 grams 0RF Coding Level of Care Code Est Pt Level 3 (11954) Diagnoses Seasonal allergies J30.2
[2025-01-12 15:31] VITALS: BP 118/72; PULSE 75; TEMP 36.8; O2SAT 99
== END 2025-01-12 16:11 | disposition home or self-care (01) ==
PROVIDERS: PCP Internal Medicine; Visit Provider Physician Assistant
DX: J30.2 Other seasonal allergic rhinitis (principal); Z13.9 Encounter for screening, unspecified

== ENCOUNTER → 2025-01-12 15:17 | Outpatient (BNVA) | payer OTHER, SELFPAY | PROVIDERS: PCP Internal Medicine; Visit Provider Physician Assistant | DX: J30.2 Other seasonal allergic rhinitis (principal) | CPT/HCPCS: 87880 ==

== ENCOUNTER 2025-02-14 08:08 | Outpatient (REF) | payer OTHER, SELFPAY ==
--- OUTSIDE RECORDS SUMMARY | 2025-02-14 08:11 | XMS_ITS | Data Portability ---
Author Organization [facility], KATHLEEN Carmella Address [address] [place] [address] Care Team Providers Care Drill Instructor Name Role Phone TIO MIKE Primary Care Provider [phone] Assessment No assessment recorded. Plan of Treatment Reminders Order Date Submit Date Provider Last Modified By Organization Details Last Modified Time Details Appointments RECHECK 15 2024 09:30A M Jaswant Cai MD Not available Not available Not available Lab None recorded. Referral None recorded. Procedures None recorded. Surgeries None recorded. Imaging XR, cervical spine, 4 or 5 view - 327 4v cspine 2024 025 [email or web address] [facility], [address], [facility] [address], [place], [address], 10/26/2024 14:12:59 MRI, cervical spine, w/o contrast - mri cervical spine without contrast for neck pain with left upper extremity radiculop athy 2024 025 [facility] ([facility]), [address] [facility] [address], [place], [address], 11/01/2024 16:59:14 Medication Orders Celebrex 200 mg capsule 2024 025 [email or web address] [id number], [address] [place], [address], 10/26/2024 14:12:59 Patient TargetsNo targets recorded. Patient Instructions Encounter Date Encounter Id Patient Instructions Last Modified By Organization Details Last Modified Time 12/15/2024 [id number] 1. Continue home exercise program twice weekly 2. May discontinue Celebrex if not providing benefit 3. Can use Tylenol 1000mg three times daily as needed for pain 4. Keep symptom log if symptoms return 5. Return to clinic sooner than scheduled if symptoms significantly worsen 6. Schedule follow-up appointment in 3 months [email or web address] Not available 12/15/2024 10:13:14 Reason for Referral None Reported. Results Created Date Observation Date Name Description Value Unit Range Abnormal Flag Note LastModifiedBy Organization Detail LastModifiedTime 10/26/1910/26/2024 XR, cervi cuco spine , 4 or 5 view [email or web address] ?Encry pted=s hAaTro YD8dLq bEUv6g %2BXZw aYqtaq 0bqfl% 2Fg9IQ a4ajBk vP9nXo QUaueC m3YtLR FvZlgJ JJ8mAn HZtai3 [id number] AC0Kqb CityIN jKiQtr [facility] INTERFACE [facility] [address], [place], [address], 10/26/2024 09:11:42 10/26/19 25 10/26/2024 XR, cervi cuco spine , 4 or 5 view [email or web address] ?Encry pted=s hAaTro YD8dLq bEUv6g %2BXZw aYqtaq 0bqfl% 2Fg9IQ a4ajBk vP9nXo QUaueC m3YtLR FvZl J8Pome[facility] Hospitaltai3 [id number] AC0Kqb BUKe jKiQtr [facility] INTERFACE [facility] [address], [place], [address], 10/26/2024 09:11:45 11/01/19 25 10/31/2024 MRI, cervi cuco spine , w/o contr ast [facility] Access ion Number : [id number] Name: Jerry calabrese, Rosie Medica l Record Number : [id number] Date of : 1964 Date of Exam: 2024 Referr ing Physic talita: Stacey lara, Jaswant BLANKS [address] [facility] [address] Exam: MR Cervic al Spine (C-) CPT 58968 Room Descri ption: [place] Siem Espr 1.5 MR Cervic al Spine (C-) CPT 13322 Spondy losis withou t myelop athy or [...] levels , most promin ent at C5-C6. 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 The cervic [...] onical ly Signed By: Delia jung MD [email or web address] [facility] ([facility]) [address], [place], [address], 11/02/2024 08:00:47 Result Notes None recorded. Problems Name Problem SNOMED Code Status Onset Date Resolution Date Notes Provider Name and Address Organization Details Recorded Time Cervical radiculopathy 35980622 Active 2024 Jaswant Cai MD [address] [facility] [address], [place], [address], [facility] [place] [facility] 10:13:35 Problem Notes None recorded. Procedures Surgical History Date Name Laterality Status Provider Name and Address Organization Details Recorded Time 9 Other completed Katie ballard [facility] 12/15/2024 09:16:16 Spine Surgery completed Katie ballard [place] - [place] [facility] 12/15/2024 09:16:16 Imaging Results None recorded. Procedure Notes None recorded. Medical Equipment None Reported. Medications Name Sig Start Date Stop Date Status Note LastModified by Organization Details LastModified Time celecoxib 200 mg capsule TAKE ONE CAPSULE BY MOUTH EVERY DAY active Not Available Not Available No t Available atorvastati n 40 mg tablet TAKE ONE TABLET BY MOUTH DAILY AT BEDTIME 12/15 completed Not Available Not Available Not Available atorvastati n 20 mg tablet TAKE ONE TABLET BY MOUTH DAILY AT BEDTIME active Not Available Not Available No t Available gabapentin 400 mg capsule TAKE ONE CAPSULE BY MOUTH DAILY AT BEDTIME active Not Available Not Available No t Available baclofen 20 mg tablet TAKE ONE TABLET BY MOUTH TWICE A DAY 12/09 completed Not Available Not Available Not Available baclofen 10 mg tablet TAKE ONE TABLET BY MOUTH TWICE A DAY active Not Available Not Available No t Available lisinopril 5 mg tablet TAKE ONE TABLET BY MOUTH EVERY DAY active Not Available Not Available No t Available polyethylen e glycol 3350 17 gram/dose oral powder 12/09 completed Not Available Not Available Not Available metformin ER 500 mg tablet,exte nded release 24 hr TAKE TWO TABLETS BY MOUTH TWICE A DAY active Not Available Not Available No t Available escitalopra m 20 mg tablet TAKE ONE TABLET BY MOUTH DAILY AT BEDTIME 12/15 completed Not Available Not Available Not Available aripiprazol e 5 mg tablet TAKE ONE TABLET BY MOUTH EVERY DAY 12/15 completed Not Available Not Available Not Available bupropion HCl XL 300 mg 24 hr tablet, extended release TAKE ONE TABLET BY MOUTH EVERY MORNING active Not Available Not Available No t Available FreeStyle Lite Strips USE TO TEST BLOOD SUGAR ONCE DAILY 12/15 completed Not Available Not Available Not Available ropinirole ER 4 mg tablet,exte nded release 24 hr TAKE ONE TABLET BY MOUTH DAILY AT BEDTIME 12/09 completed Not Available Not Available Not Available Ozempic 1 mg/dose (4 mg/3 mL) subcutaneou s pen injector INJECT 1MG UNDER THE SKIN ONCE A WEEK 12/09 completed Not Available Not Available Not Available Ozempic 2 mg/dose (8 mg/3 mL) subcutaneou s pen injector INJECT 2MG 0.75ML) SUBCUTANE OUSLY EVERY WEEK FOR 4 WEEKS active Not Available Not Available No t Available Vitals Date Recorded Body height Body mass index (BMI) Body weight Provider Name and Address Organization Details Last Updated DateTime 12/15/2024 167.64 cm 29.1 kg/m2 91268.63 g Katie ballard [facility] 12/15/2024 09:16:37 Social History Question Answer Notes LastModified by Box[employer] Details LastModified Time Tobacco Smoking Status Never Smoker [facility] 12/15/2024 09:16:12 What Is Your Relationship Status? Information not available 12/15/2024 Sex: Unknown Functional Status Question Answer Note LastModified by [employer] Details LastModified Time How many times per week do you consume alcohol? Less than 1 time per week Information not available 12/15/2024 Do you use any illicit or recreational drugs? No Information not available 12/15/2024 Do you or have you ever used any other forms of tobacco or nicotine? No Information not available 12/15/2024 Do you or have you ever used e-cigarettes or vape? Never used electronic cigarettes Information not available 12/15/2024 Mental Status None recorded. Family History Nothing Reported. Medical History Condition Response Anxiety/Depression Y Cancer Y Diabetes Y Gynecological HistoryNo gynecological history recorded. Obstetrics History GPAL:G 0 P 0 0 0 0 Past Encounters Encounter ID Performer Location Encounter Start Date Encounter Closed Date Diagnosis/Indication Diagnosis SNOMED-CT Code Diagnosis ICD10 Code Diagnosis Note [id number] MD KATHLEEN Swann [address] [place] [address] 10/26/2024 08:42:17 11/15/2024 11:27:24 Cervical spondylosis 077453034 M47.812 Cervical radiculopathy 68948296 M54.12 [id number] MD KATHLEEN Swann [address] [place] [address] 12/15/2024 09:08:05 01/03/2025 09:20:19 Cervical radiculopathy 25653921 M54.12 Assessment :1. Cervical radiculopa thy - Improved2. Cervical spondylosi s with multi-leve l foraminal stenosis3. Anterolist hesis C4-5 Plan:1. Continue current conservati ve management given improvemen t:- Maintain home exercise program- Continue Celebrex as needed, may discontinu e if not providing benefit- May use Tylenol 1000mg TID for pain management as alternativ e 2. Discussed treatment options including epidural steroid injections if symptoms worsen 3. Patient instructed to maintain symptom log if symptoms recur, noting:- Which fingers are affected- Activities that provoke symptoms- Timing of symptoms 4. Return to clinic in 3 months for follow-up, sooner if symptoms worsen5. Patient educated about possible concurrent peripheral nerve involvemen t at elbow ICD-10: M54.12 - Radiculopa thy, cervical regionICD- 10: M47.812 - Spondylosi s without myelopathy or radiculopa thy, cervical regionICD- 10: M43.12 - Spondyloli sthesis, cervical region Health Concerns Section Related Observation LastModified by Organization Detai ls LastModified Time None Recorded Concern Status LastModified by Organization Details LastModified Time None Recorded Advance Directives Directive None Recorded Payers Encounter Date Sequence Insurance Name Policy Number Policy Lopez Covered Member ID Lopez Member ID Guarantor Name 10/26/2024 1 [employer] ([employer]) [id number] Rosie A Schoeffel [id number] Rosie Schoeffel 12/15/2024 1 [employer] [id number] Rosie A Schoeffel [id number] Rosie Schoeffel Notes Date Note Type Note Provider Name [...] hand clumsiness. 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 Jaswant Cai MD [address] [facility] [address], [place], [address], [facility] [place] [facility] 10/26/2024 09:44:33 5 text/html 59-year-old female presents for follow-up of cervical spine condition.Patient reports significant improvement in symptoms since last visit.Currently experiencing:- Reduced overall arm symptoms- Persistent tingling in middle and ring fingers of left hand- Occasional tingling in left armpit region- Intermittent left shoulder blade discomfortPrevious symptoms were exacerbated by looking up.Current treatments:- Performing prescribed home exercises twice weekly- Taking Celebrex (notes it may not be helping significantly with pain)Past Medical History notable for diabetes, well-controlledPrior surgical history includes thyroid surgery Jaswant Cai MD [address] [facility] [address], [place], [address], [facility] 12/15/2024 10:13:59 OBGyn Episode No OBEpisode recorded.
[2025-02-14 09:21] LABS: Appearance Urine Clear; Color Urine Yellow; Glucose Urine UA Negative (Negative); Leukocyte Esterase Urine Small (1+) (Negative); Nitrite Urine Negative (Negative); PH 5.5 (5.0-9.0); UMIC TRIGGER UA YES; Urine Blood Negative (Negative); Urine Ketones Trace mg/dL (Negative); Urine Protein Negative (Neg-Trace)
[2025-02-14 09:49] LABS: Creatinine Urine 248.48 mg/dL; Creatinine Urine 251.03 mg/dL; Microalbum/Creatinine Ratio Ur 9.9 ug/mg cr (<30); Total Protein Urine Random 15 mg/dL (<12)
[2025-02-14 09:54] LABS: Alanine Aminotransferase 24 U/L (0-31); Albumin Level 4.4 g/dL (3.5-5.0); Alkaline Phosphatase 80 U/L (39-117); Anion Gap 14 (12-20); Aspartate Amino Transferase 23 U/L (5-31); Bilirubin Total 0.3 mg/dL (0.0-1.0); Blood Urea Nitrogen 13 mg/dL (9-16); Calcium 9.2 mg/dL (8.4-10.2); Carbon Dioxide 27 mmol/L (22-29); Chloride 107 mmol/L (96-108); Cholesterol 178 mg/dL (<200); Estimated Glomerular Filt Rate 58; Glucose Fasting 108 mg/dL (60-99); Glucose Random 108 mg/dL (60-115); HDL Cholesterol 72 mg/dL (>40); LDL Cholesterol Calculated 90 mg/dL (<100); Potassium 4.8 mmol/L (3.3-5.1); Sodium 143 mmol/L (135-145); Total Protein 7.1 g/dL (6.5-8.0); Triglycerides 81 mg/dL (<150)
[2025-02-14 09:57] LABS: Vitamin D 25-OH Total 54.5 ng/mL (>30)
[2025-02-14 10:00] LABS: Bacteria Urine None Seen (None Seen); Hyaline Casts Urine 0-2 /LPF (0-2); RBC Urine 0-2 /HPF (0-2); WBC Urine 0-5 /HPF (0-5)
[2025-02-14 10:59] LABS: Parathyroid Hormone Intact 68.9 pg/mL (8.7-77.1)
== END 2025-02-14 08:09 | disposition home or self-care (01) ==
LOC: HO.LAB 08:08
PROVIDERS: PCP Internal Medicine; Visit Provider Internal Medicine Hypertension Specialist
DX: E11.9 Type 2 diabetes mellitus without complications (principal); E21.3 Hyperparathyroidism, unspecified; R80.9 Proteinuria, unspecified; E55.9 Vitamin D deficiency, unspecified; E78.5 Hyperlipidemia, unspecified
CPT/HCPCS: 36415; 80048; 80053; 80061; 81001; 82043; 82306; 82570; 83970; 84156

== ENCOUNTER 2025-02-23 09:22 | Outpatient (AMB) | payer OTHER, SELFPAY ==
[2025-02-23 09:30] VITALS: BP 110/64; BMI 28.9
--- NOTE | 2025-02-23 09:30 | HO.NEPHOV_ITS ---
Vital Signs 02/23/25 09:30 Height 5 ft 6 in Weight 179 lb BMI 28.9 BP 110/64 Blood Pressure Location Rt brachial Position Sitting Intake Visit Reasons: Proteinuria/ Conf Sales Promoter Required: No Accompanied by: Self / Same As Patient Allergies Seasonal Allergies Allergy (Unknown, Verified 02/23/25 09:32) Unknown Medication List - Last Reconciled 02/23/25 by Macho Eastman MD aripiprazole 5 mg PO DAILY aspirin (Adult Aspirin Regimen) 81 mg PO DAILY atorvastatin 20 mg PO BEDTIME 90 days baclofen 20 mg PO BID blood sugar diagnostic (FreeStyle Lite Strips) once a day blood-glucose meter (FreeStyle Lite Meter kit) As directed bupropion HCl XL (Wellbutrin XL) 300 mg PO QAM cholecalciferol (vitamin D3) 25 mcg PO DAILY 90 days escitalopram oxalate (Lexapro) 20 mg PO DAILY fluticasone propionate 50 mcg/actuation 1 spray intranasal Q12H gabapentin 400 mg PO BEDTIME lancets (FreeStyle Lancets) once a day lisinopril 5 mg PO DAILY loratadine (Claritin) 10 mg PO DAILY metformin ER 500 mg PO BID 90 days polyethylene glycol 3350 (Miralax) 17 grams PO DAILY semaglutide (Ozempic) 2 mg (0.75 mL) subcut QWEEK 4 weeks HPI Comments Details: Gina is a pleasant middle-aged woman with a history of longstanding diabetes mellitus and obesity, Renal cell carcinoma status post partial right nephrectomy in 2019, history of nephrolithiasis status post lithotripsy in 2019 Recently she was found to have microalbuminuria. Urine microalbumin creatinine ratio was 60. She has been on lisinopril for almost 5 years. She has no history of hypertension. History of hyperparathyroidism. Three glands have been removed. She is on Ozempic and she was lost about 40 lb. Recent blood pressures have been rather low. 08/22/24 After switching Lisinopril to Q Pm. she has no further dizziness. Lost few more lbs 02/23/25 59-year-old female presenting with dizziness related to position changes, p articularly upon bending down and standing up. She asserts experiencing these symptoms at various times throughout the day without a consistent pattern. There is a well-documented history of low blood pressure, with recent measurements indicating a reading of 110 mmHg, suggesting that her hypotension may contribute to the symptomatology experienced. The dizziness episodes are transient, resolving quickly and have not resulted in any falls to date. She has been on Lisinopril, initially prescribed for renal protection, where notable proteinuria was absent, bringing into question the continued need for this particular management strategy. Previously, a change in the timing of Lisinopril administration to nighttime improved symptoms for the patient. Switching from Zyrtec to Claritin resolved inadequacies in her allergy management this season. Additionally, she monitors her blood glucose sporadically, with occasional hypoglycemic episodes noted, although her glucose maintains a stable trajectory. [facility] Medical History Hyperparathyroidism Mild ascending aorta dilation Class 2 severe obesity with serious comorbidity and body mass index (BMI) of 37.0 to 37.9 in adult GERD (gastroesophageal reflux disease) Mild recurrent major depression Class 2 severe obesity with serious comorbidity and body mass index (BMI) of 38.0 to 38.9 in adult Cancer of right kidney Left wrist pain Obesity (BMI 30-39.9) Depression Non-toxic multinodular goiter Hypertension Dyslipidemia Diabetes type 2, controlled Primary hyperparathyroidism Surgical History Status post Mohs micrographic surgery for basal cell carcinoma (BCC) Status post fine needle aspiration History of colonoscopy History of kidney surgery History of parathyroidectomy History of removal of ovarian cyst History of back surgery Family History Father Diabetes Hypertension High cholesterol Skin cancer Mother Dementia Mental health disorder Family/Other History of breast cancer Social History Housing: House Alcohol intake: never Patient Tobacco Use Status: Never used Tobacco e-Cigarette/Vaping Use: Never Used Second Hand Smoke Exposure: No service: No Current occupational status: employed Current occupational exposures/hazards: No Cognitive needs: No Hearing needs: No Vision needs: No Physical Exam Vital Signs: Last Vital Signs BP 110/64 02/23/25 09:30 BMI result Body Mass Index 28.9 Comfortable Neck supple no JVD. Lungs entry equal no rales. Heart S1-S2 heard no gallop or rub. Abdomen soft nontender. Neuro alert awake oriented. No asterixis. Extremities no edema. Results Reviewed Nephrology Results: Hgb 13.6 g/dl (12.0-16.0) 10/25/24 WBC 10.1 X10*3/uL (4.8-10.8) 10/25/24 Plt Count 284 X10*3/uL (160-400) 10/25/24 Sodium 143 mmol/L (135-145) 02/14/25 Potassium 4.8 mmol/L (3.3-5.1) 02/14/25 Chloride 107 mmol/L (96-108) 02/14/25 Carbon Dioxide 27 mmol/L (22-29) 02/14/25 BUN 13 mg/dL (9-16) 02/14/25 Creatinine 0.99 mg/dL (0.5-1.4) 02/14/25 Calcium 9.2 mg/dL (8.4-10.2) 02/14/25 PTH Intact 68.9 pg/mL (8.7-77.1) 02/14/25 Urine Protein Negative mg/dL (Neg-Trace) 02/14/25 Urine Creatinine 248.48 mg/dL 02/14/25 Assessment & Plan Assessment & Plan (1) Microalbuminuria: Comment: In the setting of diabetes mellitus and obesity. Code(s): R80.9 - Proteinuria, unspecified Category: Medical Plan: Discussed importance of tight control blood sugar. Continue with weight loss. Monitor urine protein excretion periodically (2) Diabetes mellitus: Code(s): E11.9 - Type 2 diabetes mellitus without complications Category: Medical Qualifiers: Diabetes mellitus complication status: without complication Diabetes mellitus senior care insulin use: without senior care use Diabetes mellitus type: type 2 Qualified Code(s): E11.9 - Type 2 diabetes mellitus without complications Plan: Optimize blood sugar Follow hemoglobin A1c Encouraged weight loss (3) Cancer of right kidney: Comment: Renal cell carcinoma. Status post partial nephrectomy 2019. Code(s): C64.1 - Malignant neoplasm of right kidney, except renal pelvis Category: Medical Plan: Continue active follow up with Urology Plan 02/23/25 I confirmed with the patient that her dizziness likely occurs due to low blood pressure, possibly exacerbated by Lisinopril. We agreed to discontinue Lisinopril, given its limited renal benefits and risk of hypotension, to prevent further dizziness and potential falls. We discussed the benefits of medication cessation outweighing the risks given her current clinical presentation. I advised increased fluid intake to help manage any dizziness. Expectations of symptom improvement, as well as monitoring blood pressure levels, were thoroughly reviewed. Acknowledging her feeling well overall and stability in her general health, her next routine follow-up is scheduled in 6 months, with an option to return sooner if new symptoms arise. Orders: Orders Total Protein Urine Random 6 Months R80.9 - Proteinuria, unspecified Basic Metabolic Panel 6 Months R80.9 - Proteinuria, unspecified UA and rflx microscopic 6 Months R80.9 - Proteinuria, unspecified Creatinine Urine 6 Months R80.9 - Proteinuria, unspecified Medications: Discontinued lisinopril Discontinued Reason: Duplicate 5 mg PO DAILY 30 tabs 6RF I10 - Essential (primary) hypertension Coding Level of Care Code Est Pt Level 4 (27339) Diagnoses Microalbuminuria R80.9 Type 2 diabetes mellitus without complication, without long-term current use of insulin E11.9 Diabetes mellitus complication status: without complication 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
--- OUTSIDE RECORDS SUMMARY | 2025-02-23 10:14 | XMS_ITS | Data Portability ---
Author Organization [facility], KATHLEEN Carmella PT Address [address] [place] [address] Care Team Providers Care Travel Rn Name Role Phone TIO MIKE Primary Care [...] [phone] cspine 2024 025 [email or web address] [facility], [address], [facility] [address], [place], [address], 10/26/2024 14:12:59 MRI, cervical spine, w/o contrast - mri cervical spine without contrast for neck pain with left upper extremity radiculop athy 2024 025 [facility] ([facility]), [address] [facility] [facility], [place], [address], 11/01/2024 16:59:14 Medication Orders Celebrex 200 mg capsule 2024 025 [email or web address] [facility], [address] [place], [address], 10/26/2024 14:12:59 Patient TargetsNo targets recorded. Patient Instructions Encounter Date Encounter Id Patient Instructions Last Modified By Organization Details Last Modified Time 12/15/2024 [id number] 1. Continue home exercise program twice weekly 2. May discontinue Celebrex if not providing benefit 3. Can use Tylenol 1000mg three times daily as needed for pain 4. Keep symptom log if symptoms return 5. Return to clinic sooner than scheduled if symptoms significantly worsen 6. Schedule follow-up appointment in 3 months [email or web address] Not available 12/15/2024 10:13:14 Reason for Referral None Reported. Results Created Date Observation Date Name Description Value Unit Range Abnormal Flag Note LastModifiedBy Organization Detail LastModifiedTime 10/26/1910/26/2024 XR, cervi cuco spine , 4 or 5 view [email or web address] ?Encry pted=s hAaTro YD8dLq bEUv6g %2BXZw aYqtaq 0bqfl% 2Fg9IQ a4ajBk vP9nXo QUaueC m3YtLR FvZlgJ JJ8mAn HZtai3 7j2037 AC0Kqb Numote jKiQtr [facility] INTERFACE [employer] Office [address], [place], [address], 10/26/2024 09:11:42 10/26/19 25 10/26/2024 XR, cervi cuco spine , 4 or 5 view [email or web address] ?Encry pted=s hAaTro YD8dLq bEUv6g %2BXZw aYqtaq 0bqfl% 2Fg9IQ a4ajBk vP9nXo QUaueC m3YtLR FvZl J8[facility] Hospital[facility] 2h4908 AC0Kqb BUKe jKiQtr [facility] INTERFACE [employer] Office [address], [place], [address], 10/26/2024 09:11:45 11/01/19 25 10/31/2024 MRI, cervi cuco spine , w/o contr ast [facility] Access ion Number : [id number] [address] Name: Jerry calabrese, Rosie Medica l Record Number : [id number] Date of : 1964 Date of Exam: 2024 Referr ing Physic talita: Stacey lara, Jaswant BLANKS [address] [facility] [address] Exam: MR Cervic al Spine (C-) CPT 76863 Room Descri ption: Geraldine Siem Espr 1.5 MR Cervic al Spine (C-) CPT 54789 Spondy losis withou t myelop athy or [...] levels , most promin ent at C5-C6. 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 The cervic [...] ly Signed By: Delia jung MD [email or web address] [facility] ([facility]) [address], [place], [address], 11/02/2024 08:00:47 Result Notes None recorded. Problems Name Problem SNOMED Code Status Onset Date Resolution Date Notes Provider Name and Address Organization Details Recorded Time Cervical radiculopathy 27811446 Active 2024 Jaswant Cai MD [address] [facility], [place], [address], [facility] 10:13:35 Problem Notes None recorded. Procedures Surgical History Date Name Laterality Status Provider Name and Address Organization Details Recorded Time 9 Other completed Katie ballard [facility] 12/15/2024 09:16:16 Spine Surgery completed Katie ballard [place] - [place] [facility] 12/15/2024 09:16:16 Imaging Results None recorded. [...] Updated DateTime 12/15/2024 167.64 cm 29.1 kg/m2 17262.63 g Katie ballard [facility] 12/15/2024 09:16:37 Social History Question Answer Notes LastModified by [email or web address] Details LastModified Time Tobacco Smoking Status Never Smoker Katie ballard sarah [facility] 12/15/2024 09:16:12 What Is Your Relationship Status? Information not available 12/15/2024 Sex: Unknown Functional Status Question Answer Note LastModified by [email or web address] Details LastModified Time How many times per [...] History Nothing Reported. Medical History Condition Response Diabetes Y Anxiety/Depression Y Cancer Y Gynecological HistoryNo gynecological history recorded. Obstetrics History GPAL:G 0 P 0 0 0 0 Past Encounters Encounter ID Performer Location Encounter Start Date Encounter Closed Date Diagnosis/Indication Diagnosis SNOMED-CT Code Diagnosis ICD10 Code Diagnosis Note [id number] MD KATHLEEN Swann [address] [place] [address] 10/26/2024 08:42:17 11/15/2024 11:27:24 Cervical spondylosis 495490177 M47.812 Cervical radiculopathy 89936585 M54.12 [id number] MD KATHLEEN Swann [address] [place] [address] 12/15/2024 09:08:05 01/03/2025 09:20:19 Cervical radiculopathy 81914283 M54.12 Assessment :1. Cervical radiculopa thy - [...] ID Guarantor Name 10/26/2024 1 [employer] [id number] Rosie A Schoeffel [id number] Rosie Schoeffel 12/15/2024 1 [employer] [id number] Rosie A Schoeffel [id number] Rosie Schoeffel Notes Date Note Type Note [...] hand clumsiness. 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 Jaswant Cai MD [address] [facility] [address], [place], [address], [facility] - [place] [facility] 10/26/2024 09:44:33 5 text/html 59-year-old female [...] includes thyroid surgery Jaswant Cai MD [address] [facility] [address], [place], [address], [facility] 12/15/2024 10:13:59 OBGyn Episode No OBEpisode recorded.
== END 2025-02-23 09:53 | disposition home or self-care (01) ==
LOC: HO.HKA 09:23
PROVIDERS: PCP Internal Medicine; Visit Provider Internal Medicine Hypertension Specialist
DX: R80.9 Proteinuria, unspecified (principal); E11.9 Type 2 diabetes mellitus without complications; C64.1 Malignant neoplasm of right kidney, except renal pelvis
CPT/HCPCS: 99214

== ENCOUNTER → 2025-02-23 09:22 | Outpatient (BNVA) | payer OTHER, SELFPAY | PROVIDERS: PCP Internal Medicine; Visit Provider Internal Medicine Hypertension Specialist ==

== ENCOUNTER 2025-03-08 15:34 | Outpatient (AMB) | payer OTHER, SELFPAY ==
--- NOTE | 2025-03-08 15:35 | MHC.OFFVIS ---
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 She is doing well with reset merchandiser concerns. Currently sexually active, admits to vaginal dryness. STI testing offered; she declines. Attempting to eat a healthy diet with calcium and vitamin D and stays active with exercise-walks. Last pap smear; 2023, negative. Last mammogram; 2024. Colonoscopy is UTD. [facility] Medical History BCC (basal cell carcinoma of skin) Hyperparathyroidism Mild ascending aorta dilation Class 2 severe obesity with serious comorbidity and body mass index (BMI) of 37.0 to 37.9 in adult GERD (gastroesophageal reflux disease) Mild recurrent major depression Class 2 severe obesity with serious comorbidity and body mass index (BMI) of 38.0 to 38.9 in adult Cancer of right kidney Left wrist pain Obesity (BMI 30-39.9) Depression Non-toxic multinodular goiter Hypertension Dyslipidemia Diabetes type 2, controlled Primary hyperparathyroidism Surgical History Status post Mohs micrographic surgery for basal cell carcinoma (BCC) Status post fine needle aspiration History of colonoscopy History of kidney surgery History of parathyroidectomy History of removal of ovarian cyst History of back surgery Family History Father Diabetes Hypertension High cholesterol Skin cancer Mother Dementia Mental health disorder Family/Other History of breast cancer Social History Housing: House Alcohol intake: never Patient Tobacco Use Status: Never used Tobacco e-Cigarette/Vaping Use: Never Used Second Hand Smoke Exposure: No service: No Current occupational status: employed Current occupational exposures/hazards: No Cognitive needs: No Hearing needs: No Vision needs: No Female Reproductive History Menstrual Menopause type: natural Total pregnancies: 0 Date of last pap smear: 10/15/23 (neg pap and hpv) Date of Mammogram: 10/12/24 (Birad 1) Review of Systems Const All systems reviewed & are unremarkable except as noted in HPI and below Reports as per HPI Eyes Reports no additional complaints ENT Reports no additional complaints Card Reports no additional complaints Resp Reports no additional complaints GI Reports as per HPI and Reports no additional complaints Reports as per HPI Musc Reports no additional complaints Skin/Breast Reports as per HPI Neuro Reports no additional complaints Psych Reports no additional complaints Endo Reports no additional complaints Calvin/Lymph Reports no additional complaints Aller/Immun Reports no additional complaints Physical Exam Vital Signs: Last Vital Signs BP 104/66 03/08/25 15:36 BMI result Body Mass Index 29.0 Const General: cooperative, healthy appearing, no acute distress, well developed and alert Orientation/consciousness: patient oriented x3 HEENT Head: Yes normal to inspection Eyes General: appearance normal, both eyes and all related structures Neck Neck: Yes normal visual inspection Thyroid: Thyroid normal Chest Chest palpation & inspection: normal inspection of the chest and other (no puckering, dimpling, peau de orange, retraction, discharge, masses) Breast/axilla inspection: normal inspection of the breasts Breast/axilla palpation: normal palpation of the breasts Resp Effort & Inspection: normal respiratory effort GI Inspection: Yes normal to inspection Palpation (GI): Soft to palpation Rectal Exam - Female: deferred General: Yes bladder normal to palpation External Female Exam: normal external appearance and normal appearance of the urethra Speculum Exam - Vagina: normal appearance of the vagina, normal palpation, normal vaginal discharge and vagina atrophic Speculum Exam - Cervix: normal appearance of the cervix and normal palpation Bimanual exam- vagina & uterus: normal bimanual exam, normal palpation, uterine size normal, bladder normal to palpation, normal palpation and non-tender Bimanual Exam- Adnexa, other: no masses Skin General skin exam: no rashes or lesions noted Rashes: no rashes Neuro General: patient oriented x3 Cognition (Neuro): normal cognition Extrem General: Yes normal to inspection Psych Attitude: cooperative Thought process: Normal thought process present Assessment & Plan Assessment & Plan (1) Encounter for well woman exam with routine gynecological exam: Code(s): Z01.419 - Encounter for gynecological examination (general) (routine) without abnormal findings Category: Medical Plan Discussed: Current recommendations for pap smears per ASCCP guidelines. Breast awareness, periodic self breast exams and yearly mammogram. Maintain a healthy lifestyle, well balanced diet including Calcium 1,200 mg and Vitamin D 600 IU daily, and routine exercise. Replens moisturizer and lubricant use. Contact the office with any postmenopausal bleeding. Patient verbalizes understanding and agrees to the plan of care. She was given opportunity to ask questions and all questions were answered to the best of my ability. RTO in 1 year for annual reset merchandiser exam. This note is constructed using voice recognition software. While every effort has been made to ensure accuracy, health social work professor errors may have been included. Coding Level of Care Code Est Pt Prev Care 40-64y(59495) Diagnoses Encounter for well woman exam with routine gynecological exam Z01.419
[2025-03-08 15:36] VITALS: BP 104/66; BMI 29.0
--- OUTSIDE RECORDS SUMMARY | 2025-03-08 17:46 | XMS_ITS | Data Portability ---
Author Organization [facility], KATHLEEN Carmella PT Address [address] [place] [address] Care Team Providers Care Simulation Tech Name Role Phone TIO MIKE Primary Care Provider Assessment No assessment recorded. Plan of Treatment Reminders Order Date Submit Date Provider Last Modified By Organization Details Last Modified Time Details Appointments None recorded. Lab None recorded. Referral None recorded. Procedures None recorded. Surgeries None recorded. Imaging XR, cervical spine, 4 or 5 view - 327 4v cspine 2024 025 [facility], [address], [place], [address], 5 14:12:59 MRI, cervical spine, w/o contrast - mri cervical spine without contrast for neck pain with left upper extremity radiculopat hy 2024 025 [facility] ([facility]), [address], [place], [address], 5 16:59:14 Medication Orders Celebrex 200 mg capsule 2024 025 [facility], [address] [place], [address], 5 14:12:59 Patient TargetsNo targets recorded. Patient Instructions Encounter Date Encounter Id Patient Instructions Last Modified By Organization Details Last Modified Time 12/15/2024 [id number] 1. Continue home exercise program twice weekly 2. May discontinue Celebrex if not providing benefit 3. Can use Tylenol 1000mg three times daily as needed for pain 4. Keep symptom log if symptoms return 5. Return to clinic sooner than scheduled if symptoms significantly worsen 6. Schedule follow-up appointment in 3 months [email or web address] Not available 12/15/2024 10:13:14 Reason for Referral None Reported. Results Created Date Observation Date Name Description Value Unit Range Abnormal Flag Note LastModifiedBy Organization Detail LastModifiedTime 10/26/1910/26/2024 XR, cervi cuco spine , 4 or 5 view http:/ [email or web address] ?Encry pted=s hAaTro YD8dLq bEUv6g %2BXZw aYqtaq 0bqfl% 2Fg9IQ a4ajBk vP9nXo QUaueC m3YtLR FvZlgJ JJ8mAn HZtai3 [id number] AC0Kqb HmBUKe jKiQtr [facility] INTERFACE [employer] Office [address], [place], [address], 10/26/2024 09:11:42 10/26/19 25 10/26/2024 XR, cervi cuco spine , 4 or 5 view http:/ [email or web address] ?Encry pted=s hAaTro YD8dLq bEUv6g %2BXZw aYqtaq 0bqfl% 2Fg9IQ a4ajBk vP9nXo QUaueC m3YtLR FvZl [place] HZtai3 [id number] AC0Kqb [facility] jKiQtr [facility] INTERFACE [employer] Office [address], [place], [address], 10/26/2024 09:11:45 11/01/19 25 10/31/2024 MRI, cervi cuco spine , w/o contr ast [facility] Access ion Number : [id number] Name: Rosie Rosalesa l Record Number : [id number] Date of : 1964 Date of Exam: 02-10- 2025 Referr ing Physic talita: Stacey er, Jaswant NEOS [address] [facility], [place] [address] Exam: MR Cervic al Spine (C-) CPT 10728 Room Descri ption: [place] Siem Espr 1.5 MR Cervic al Spine (C-) CPT 03323 Spondy losis withou t myelop athy or [...] STIR, axial gradie nt echo, and axial T2-artme ghted sequen dior. COMPAR AXEL: None. FINDIN [...] levels , most promin ent at C5-C6. 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 The cervic [...] . Electr onical ly Signed By: Delia paulino[address] [facility] ([facility]) [address] [facility], [place], [address], 11/02/2024 08:00:47 Result Notes Documentation Provider Name and Address Organization Details Recorded Time Xr, Cervical Spine, 4 Or 5 View : [email or web address] Encrypted=vnYvMcwSG5kYaoF Uv6g%7BUZzbIhvco7cdax%2Fg 7SIp3gvChvH8mIzHRzwqHd5Gx MZIdDatMXH1rCgZXjqo89n303 4EF5StfNzWBFrtBcJuiKoF Not Available [facility] 10/26/2024 09:11:43 Xr, Cervical Spine, 4 Or 5 View : [email or web address] Encrypted=ltOyAwmCQ1oGtaI Uv6g%8RYPhuFpspf4cxcj%2Fg 5PVq8icUjdA8oOoJHmaeYb1Vx CVMhYtgTFQ0vQsEAndh35s463 0NN1SisAfMKLyhXyIqtNsR Not Available [facility] 10/26/2024 09:11:45 Mri, Cervical Spine, W/o Contrast : [facility] Accession Number: [id number] Patient Name: Rosie Guzman Date of : 1965 Date of Exam: 10-31-2024 Referring Physician: Jaswant Cai [address] [facility] [address] [place] [address] Exam: MR Cervical Spine (C-) CPT 50387 Room Description: [facility] Espr 1.5 MR Cervical Spine (C-) CPT 56024 Spondylosis without myelopathy or radiculopathy, cervical region, , mri cervical spine without contrast for neck pain with left upper extremity radiculopathy Spondylosis without myelopathy or radiculopathy, cervical region, , mri cervical spine without contrast for neck pain with left upper extremity radiculopathy [facility] - Standard Department Protocol TECHNIQUE: MRI [...] through C6-C7 levels. Electronically Signed By: Delia ballard [facility] 11/02/2024 08:00:48 Problems Name Problem SNOMED Code Status Onset Date Resolution Date Notes Provider Name and Address Organization Details Recorded Time Cervical radiculopathy 78771244 Active 2024 Jaswant Cai MD [address] [place] [address] [address], [place], [address] [place] [address] [facility] 10:13:35 Problem Notes None recorded. Procedures Surgical History Date Name Laterality Status Provider Name and Address Organization Details Recorded Time 9 Other [facility] 12/15/2024 09:16:16 [facility] 12/15/2024 09:16:16 Imaging Results None [...] Updated DateTime 12/15/2024 167.64 cm 29.1 kg/m2 65121.63 g Katie ballard [facility] 12/15/2024 09:16:37 Social History Question Answer Notes LastModified by Organizat ion Details LastModified Time Tobacco Smoking Status Never Smoker Katie smith [facility] 12/15/2024 09:16:12 What Is Your Relationship Status? Information not available 12/15/2024 Sex: Unknown Functional Status Question Answer Note LastModified by Organizat ion Details LastModified Time How many times per [...] Reported. Medical History Condition Response Anxiety/Depression Y Diabetes Y Cancer Y Gynecological HistoryNo gynecological history recorded. Obstetrics History GPAL:G 0 P 0 0 0 0 Past Encounters Encounter ID Performer Location Encounter Start Date Encounter Closed Date Diagnosis/Indication Diagnosis SNOMED-CT Code Diagnosis ICD10 Code Diagnosis Note [id number] MD KATHLEEN Swann [address] [place] [address] 10/26/2024 08:42:17 11/15/2024 11:27:24 Cervical spondylosis 548249892 M47.812 Cervical radiculopathy 74198499 M54.12 [id number] MD KATHLEEN Swann [address] [place] [address] 12/15/2024 09:08:05 01/03/2025 09:20:19 Cervical radiculopathy 33610844 M54.12 Assessment :1. Cervical radiculopa thy - [...] Recorded Advance Directives Directive None Recorded Payers Insurance Date Sequence Insurance Name Policy Number Policy Lopez Covered Member ID Lopez Member ID Guarantor Name 12/09/2024 1 [employer] ADMIN[employer]RATION [place] (PPO) [id number] Rosie A Schoeffel [id number] Rosie Schoeffel 01/03/2025 1 [employer] [id number] Rosie A Schoeffel [id number] Rosie Schoeffel Notes Date Note Type Note Provider Name and Address Organization Details Recorded Time text/html Left Cervical Radiculopathy with Upper Extremity [...] problems or hand clumsiness. 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 No skin or hair changes Gait: Normal heel and toe walkingCervical Spine: Limited [...] presentFlexion View: Mild anterolisthesis of C4 on A4Frgigifsi View: Improved alignment compared to flexionNo prior [...] if new or worsening neurological symptoms develop Jaswant Cai MD [address] [place] [address] [address], [place], [address], [facility] [place] [facility] 10/26/2024 09:44:33 5 text/html 59-year-old [...] history includes thyroid surgery Jaswant Cai MD [address] [place] [address] [address], [place], [address], [facility] 12/15/2024 10:13:59 OBGyn Episode No OBEpisode recorded.
== END 2025-03-08 16:14 | disposition home or self-care (01) ==
LOC: HO.HWS 15:34
PROVIDERS: PCP Internal Medicine; Visit Provider Advanced Practice Midwife
DX: Z01.419 Encounter for gynecological examination (general) (routine) without abnormal findings (principal)
CPT/HCPCS: 99396; 99459

== ENCOUNTER 2025-05-11 06:38 | Outpatient (REF) | payer OTHER, SELFPAY ==
[2025-05-11 07:18] LABS: Appearance Urine Clear; Glucose Urine UA Negative (Negative); PH 6.5 (5.0-9.0); Specific Gravity - Urine 1.010 (1.005-1.025); UMIC TRIGGER UA YES
[2025-05-11 07:44] LABS: Microalbum/Creatinine Ratio Ur 6.8 ug/mg cr (<30)
== END 2025-05-11 06:39 | disposition home or self-care (01) ==
LOC: HO.LAB 06:38
PROVIDERS: Internal Medicine Hypertension Specialist; PCP Internal Medicine; Visit Provider Internal Medicine
DX: E21.3 Hyperparathyroidism, unspecified (principal); R80.9 Proteinuria, unspecified
CPT/HCPCS: 81001; 82043; 82570

== ENCOUNTER 2025-05-18 08:24 | Outpatient (AMB) | payer OTHER, SELFPAY ==
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
[2025-05-18 08:29] VITALS: BP 128/76; PULSE 73; TEMP 36.1; O2SAT 99; BMI 29.9
--- OUTSIDE RECORDS SUMMARY | 2025-05-18 09:02 | XMS_ITS | Patient Health Record ---
Author Organization [facility] Address [address] [place] [address] Care Team Providers Care Courtesy Clerk Name Role Phone Po Rosemary RODRIGUEZ Primary Care Provider Rubens Conner [phone] Reason For Referral No Information Medications Medication SIG (Take, Route, Frequency, Duration) Notes Start Date End Date Status Omeprazole 20 MG 1 capsule Orally Once a day Infrequent--ju st prn Active Aspir-81 81 MG 1 tablet Orally Once a day Active Lisinopril 5 MG 1 tablet Orally Once a day Active Abilify 5 MG 1 tablet Orally Once a day Active Wellbutrin XL 300 MG 1 tablet in the morning Orally Once a day Active metFORMIN HCl 500 MG 1 tablet with meals Orally Twice a day Active Atorvastatin Calcium 20 MG 1 tablet Orally Once a day Active Pramipexole Dihydrochloride 0.25 MG 1 tablet before bedtime Orally Once a day Active clonazePAM 0.5 MG 1 tablet at bedtime Orally Once a day Active Folic Acid 1 MG 1 tablet Orally Once a day Active Social History Tobacco Use: Social History Observation Description Date Details (start date - stop date) Never Smoker NA - NA Tobacco Use/Smoking Question Answer Notes Patient is a nonsmoker Alcohol Screen Question Answer Notes Did you have a drink containing alcohol in the p ast year? No Points 0 Interpretation Negative Section Notes: Nonsmoker; no sig alcohol Problems Problem Type SNOMED Code ICD Code Onset Dates Problem Status W/U Status Risk Notes Problem [id number] Encounter for screening for malignant neoplasm of colon (Z12.11) Active confirmed Problem [id number] Preprocedural examination (Z01.818) Active confirmed Plan Of Treatment Future Test Test Name Order Date COLONOSCOPY 12/09/2017 Insurance Providers Payer Name Payer Address Payer Phone Subscriber Number Group Number Insured Name Patient Relationship to Insured Coverage Start Date Coverage End Date [facility] [address] [facility] [place], [place] [phone] [id number] MORGAN CARRERO Self - patient is the insured Medical (General) History Medical History History ICD Code NIDDM Denies CO,CVA,Lung disease,renal disease Hyperlipidemia Depression Restless leg syndrome Mild sleep apnea on a sleep study in 2 017--did not require a CPAP mask Surgical History Surgery Date(Month/Year) Right ovary and tube removed 1977 Discectomy--lower back 2011
== END 2025-05-18 09:08 | disposition home or self-care (01) ==
LOC: HO.HMCH 08:25
PROVIDERS: PCP Internal Medicine; Visit Provider Internal Medicine
DX: Z00.00 Encounter for general adult medical examination without abnormal findings (principal); C64.1 Malignant neoplasm of right kidney, except renal pelvis; E11.9 Type 2 diabetes mellitus without complications; F33.0 Major depressive disorder, recurrent, mild; Z23 Encounter for immunization; Z13.9 Encounter for screening, unspecified

== ENCOUNTER → 2025-05-18 08:24 | Outpatient (BNVA) | payer OTHER, SELFPAY | PROVIDERS: PCP Internal Medicine; Visit Provider Internal Medicine | DX: Z00.00 Encounter for general adult medical examination without abnormal findings (principal); E11.9 Type 2 diabetes mellitus without complications; F33.0 Major depressive disorder, recurrent, mild; E78.5 Hyperlipidemia, unspecified; R80.9 Proteinuria, unspecified; Z23 Encounter for immunization; Z85.528 Personal history of other malignant neoplasm of kidney | CPT/HCPCS: 83036; 90471; 90472; 90677; 90715; 96127 ==

== ENCOUNTER 2025-06-09 14:29 | Outpatient (AMB) | payer OTHER, SELFPAY ==
[2025-06-09 14:30] VITALS: BP 140/72; PULSE 82; RESP 16; TEMP 36.8; O2SAT 99; BMI 30.7
--- NOTE | 2025-06-09 14:30 | MHC.OFFWIV ---
Intake Vital Signs 06/09/25 14:30 Height 5 ft 6 in Weight 190 lb BMI 30.7 BP 140/72 H Respiration 16 Pulse 82 Pulse Source Pulse Oximeter Temp 98.2 F Temp Source Oral Pulse Oximetry (%) 99 Oxygen Delivery Method Room Air Intake Visit Reasons: ep pain in lower back Patient Tobacco Use Status: Never used Tobacco Allergies Seasonal Allergies Allergy (Unknown, Verified 06/09/25 14:34) Unknown HPI HPI Comments History of Present Illness Details History - The patient is a 60-year-old female presenting with severe lower back pain. - The pain began a week ago, with a notable increase in severity yesterday, described as sharp and constant, localized to the lower back and right side. - Denies loss of control of bladder or bowels. Denies weakness, numbness or tingling of lower extremities. - The patient has a history of chronic back issues and previous back surgery 12 to 15 years ago. - Current medications include gabapentin and baclofen, which provide partial relief. Tried Motrin with no relief. - The patient has diabetes mellitus 2, controlled with metformin and Mounjaro, with an A1c between 5 and 6. Does not check bg's regularly. Physical Exam General: cooperative, healthy appearing and comfortable, patient oriented x3 Head: Yes normal to inspection and Yes normocephalic General nose exam: Normal external nose present Face and sinus: Yes normal facial exam Effort & Inspection: normal respiratory effort and able to speak in complete sentences Back/spine: cervical, thoracic and lumbar spine normal to inspection cervical ROM normal, thoracic ROM normal, lumbar ROM normal no Cervical, thoracic or lumbar spine tenderness TTP on right low back into right buttocks. Extremities: moving extremities normally Neuro: gait normal Review of Systems - Musculoskeletal: Reports severe lower back pain, denies radiation to legs, weakness, numbness, or tingling - Neurological: Denies loss of bladder or bowel control All systems reviewed and are unremarkable except as noted in HPI and above [facility] Medical History BCC (basal cell carcinoma of skin) Hyperparathyroidism Mild ascending aorta dilation Class 2 severe obesity with serious comorbidity and body mass index (BMI) of 37.0 to 37.9 in adult GERD (gastroesophageal reflux disease) Mild recurrent major depression Class 2 severe obesity with serious comorbidity and body mass index (BMI) of 38.0 to 38.9 in adult Cancer of right kidney Left wrist pain Obesity (BMI 30-39.9) Depression Non-toxic multinodular goiter Hypertension Dyslipidemia Diabetes type 2, controlled Primary hyperparathyroidism Surgical History Status post Mohs micrographic surgery for basal cell carcinoma (BCC) Status post fine needle aspiration History of colonoscopy History of kidney surgery History of parathyroidectomy History of removal of ovarian cyst History of back surgery Family History Father Diabetes Hypertension High cholesterol Skin cancer Mother Dementia Mental health disorder Family/Other History of breast cancer Social History Housing: House Alcohol intake: never Patient Tobacco Use Status: Never used Tobacco e-Cigarette/Vaping Use: Never Used Second Hand Smoke Exposure: No service: No Current occupational status: employed Current occupational exposures/hazards: No Cognitive needs: No Hearing needs: No Vision needs: No Physical Exam Vital Signs: Last Vital Signs Temp 98.2 F 06/09/25 14:30 Pulse 82 06/09/25 14:30 Resp 16 06/09/25 14:30 BP 140/72 H 06/09/25 14:30 Pulse Ox 99 06/09/25 14:30 Oxygen Delivery Method Room Air 06/09/25 14:30 BMI result Body Mass Index 30.7 Assessment & Plan Assessment & Plan (1) Right-sided low back pain with right-sided sciatica: Code(s): M54.41 - Lumbago with sciatica, right side Qualifiers: Chronicity: acute Qualified Code(s): M54.41 - Lumbago with sciatica, right side Plan: Plan - Prescribe prednisone for five days to reduce inflammation and pain, with monitoring of blood glucose levels due to potential elevation. - Continue current medications, including gabapentin and baclofen, for pain relief. - Advise dietary adjustments to help manage blood glucose levels during prednisone therapy. - Instruct to seek emergency care if experiencing loss of bladder or bowel control. - Recommend follow-up with PCP if symptoms do not improve, possibly requiring imaging or specialist referral. Patient was informed and verbally consented to the use of an ambient scribe for clinic note documentation during this visit. Medications: New prednisone 50 mg PO QAM 5 tabs 0RF Coding Level of Care Code Est Pt Level 3 (45691) Diagnoses Acute right-sided low back pain with right-sided sciatica M54.41 Chronicity: acute
== END 2025-06-09 14:54 | disposition home or self-care (01) ==
PROVIDERS: PCP Internal Medicine; Visit Provider Physician Assistant
DX: M54.41 Lumbago with sciatica, right side (principal)

== ENCOUNTER 2025-08-19 08:00 | Outpatient (REF) | payer OTHER, SELFPAY ==
--- OUTSIDE RECORDS SUMMARY | 2025-08-19 08:04 | XMS_ITS | Data Portability ---
Author Organization [place] - [facility], KATHLEEN Carmella PT Address [address] [place] [address] Care Team Providers Care Vision Specialist Name Role Phone TIO MIKE Primary Care Provider [phone] Assessment No assessment recorded. Plan of Treatment Reminders Order Date Submit Date Provider Last Modified By Organization Details Last Modified Time Details Appointments None recorded. Lab None recorded. Referral None recorded. Procedures None recorded. Surgeries None recorded. Imaging XR, cervical spine, 4 or 5 view - 327 4v cspine 2024 025 [facility] [address] [facility], [address], [place], [address], 5 14:12:59 MRI, cervical spine, w/o contrast - mri cervical spine without contrast for neck pain with left upper extremity radiculopat hy 2024 025 [facility] ([facility]), [address], [place], [address], 5 16:59:14 Medication Orders Celebrex 200 mg capsule 2024 025 [id number], [address] [place], [address], 5 14:12:59 Patient TargetsNo targets recorded. Patient Instructions Encounter Date Encounter Id Patient Instructions Last Modified By Organization Details Last Modified Time 12/15/2024 [id number] 1. Continue home exercise program twice weekly 2. May discontinue Celebrex if not providing benefit 3. Can use Tylenol 1000mg three times daily as needed for pain 4. Keep symptom log if symptoms return 5. Return to clinic sooner than scheduled if symptoms significantly worsen 6. Schedule follow-up appointment in 3 months [email or web address] Not available 12/15/2024 10:13:14 Reason for Referral None Reported. Results Created Date Observation Date Name Description Value Unit Range Abnormal Flag Note LastModifiedBy Organization Detail LastModifiedTime 10/26/1910/26/2024 XR, cervi cuco spine , 4 or 5 view http:/ [email or web address] ?Encry pted=s hAaTro YD8dLq bEUv6g %2BXZw aYqtaq 0bqfl% 2Fg9IQ a4ajBk vP9nXo QUaueC m3YtLR FvZlgJ JJ8mAn HZtai3 4i5593 AC0Kqb Zondle jKiQtr [facility] INTERFACE [facility] Office [address], [place], [address], 10/26/2024 09:11:42 10/26/19 25 10/26/2024 XR, cervi cuco spine , 4 or 5 view http:/ [email or web address] ?Encry pted=s hAaTro YD8dLq bEUv6g %2BXZw aYqtaq 0bqfl% 2Fg9IQ a4ajBk vP9nXo QUaueC m3YtLR FvZl JJ8mAn HZtai3 0a3748 AC0Kqb SolveBoardGraphdive jKiQtr [facility] INTERFACE [facility] [address], [place], [address], 10/26/2024 09:11:45 11/01/19 25 10/31/2024 MRI, cervi cuco spine , w/o contr ast [facility] Access ion Number : [id number] Name: Jerry calabrese, Rosie Medica l Record Number : [id number] Date of : 1964 Date of Exam: 2024 Referr ing Physic talita: Stacey er, Jaswant ABHAYS [address] [facility], [place] [address] Exam: MR Cervic al Spine (C-) CPT 88507 Room Descri ption: Fonda Siem Espr 1.5 MR Cervic al Spine (C-) CPT 42135 Spondy losis withou t myelop athy or [...] levels , most promin ent at C5-C6. 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 The [...] . Electr onical ly Signed By: Delia paulino[address] [facility] ([facility]) [address] [facility] [address], [place], [address], 11/02/2024 08:00:47 Result Notes Documentation Provider Name and Address Organization Details Recorded Time Xr, Cervical Spine, 4 Or 5 View : [email or web address] Encrypted=sdViKquRE1uShfB Uv6g%4EZPtaYjoja4sljq%2Fg 6JNx9ekWnnY9rMcDGqmnUs1Uq BNFsZopMYQ3mQcANeva76a382 2WV4LniTsNRZcdEiHmbMnX Not Available [facility] 10/26/2024 09:11:43 Xr, Cervical Spine, 4 Or 5 View : [email or web address] Encrypted=ifHyNaoTA6pSqvY Uv6g%2QTPtlWgngl4rbsz%2Fg 1LMh8cyIloQ5nVaEKbzhQz7Je JANzYohQWA6yNoXEiyk80q444 9VX1AmfLwONBwdSxMxcFcT Not Available [facility] 10/26/2024 09:11:45 Mri, Cervical Spine, W/o Contrast : [facility] Accession Number: [id number] Patient Name: Rosie Guzman Date of : 1965 Date of Exam: 10-31-2024 Referring Physician: Jaswant Cai [address] [place] [address] [address] [place] [address] Exam: MR Cervical Spine (C-) CPT 31457 Room Description: [facility] Espr 1.5 MR Cervical Spine (C-) CPT 89983 Spondylosis without myelopathy or radiculopathy, cervical region, , mri cervical spine without contrast for neck pain with left upper extremity radiculopathy Spondylosis without myelopathy or radiculopathy, cervical region, , mri cervical spine without contrast for neck pain with left upper extremity radiculopathy [facility] - Standard Department Protocol TECHNIQUE: MRI of [...] C6-C7 levels. Electronically Signed By: Delia ballard [facility] 11/02/2024 08:00:48 Problems Name Problem SNOMED Code Status Onset Date Resolution Date Notes Provider Name and Address Organization Details Recorded Time Cervical radiculopathy 29629799 Active 2024 Jaswant Cai MD [address] [place] [address] [address], [place], [address] [place] [address] [facility] 10:13:35 Problem Notes None recorded. Procedures Surgical History Date Name Laterality Status Provider Name and Address Organization Details Recorded Time 9 [facility] 09:16:16 Sp[facility] Surgery [facility] 12/15/2024 09:16:16 Imaging Results None recorded. Procedure [...] Updated DateTime 12/15/2024 167.64 cm 29.1 kg/m2 29919.63 g Katie ballard [facility] 12/15/2024 09:16:37 Social History Question Answer Notes LastModified by Organizat ion Details LastModified Time Tobacco Smoking Status Never Smoker Katie smith [facility] 12/15/2024 09:16:12 What Is [...] Diagnosis SNOMED-CT Code Diagnosis ICD10 Code Diagnosis IMO Codes Diagnosis Note [id number] MD KATHLEEN Swann [address] [place] [address] 10/26/2024 08:42:17 11/15/2024 11:27:24 Cervical spondylosis 657166167 M47.812 [id number] Cervical radiculopathy 13652499 M54.12 [id number] MD KATHLEEN Swann [address] [place] [address] 12/15/2024 09:08:05 01/03/2025 09:20:19 Cervical radiculopathy 36892120 M54.12 [id number] Assessment :1. Cervical radiculopa thy - Improved2. [...] Lopez Member ID Guarantor Name 12/09/2024 1 5 CUPS and some sugarNA - [employer] ADMINISTRATION OVIA (PPO) [id number] Rosie A Schoeffel [id number] Rosie Schoeffel 01/03/2025 1 [facility] [id number] Rosie A Schoeffel [id number] Rosie Schoeffel Notes Date Note Type Note [...] hand clumsiness. 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 No skin or hair changes G ait: Normal heel and toe walkingCervical Spine: Limited [...] presentFlexion View: Mild anterolisthesis of C4 on Q4Ktdqtokyw View: Improved alignment compared to flexionNo prior [...] worsening neurological symptoms develop Jaswant Cai MD [address] [facility] [address], [place], [address], [facility] 10/26/2024 09:44:33 5 text/html 59-year-old female presents [...] includes thyroid surgery Jaswant Cai MD [address] [facility], [place], [address], [facility] 12/15/2024 10:13:59 OBGyn Episode No OBEpisode recorded.
--- OUTSIDE RECORDS SUMMARY | 2025-08-19 08:04 | XMS_ITS | Patient Health Record ---
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 Name Role Phone Rosemary Cardona MD Primary Care Provider Rubens Conner [phone] Reason For Referral No Information Medications Medication SIG (Take, Route, Frequency, Duration) Notes Start Date End Date Status Omeprazole 20 MG Capsule Delayed Release 1 capsule Orally Once a day Infrequent--ju st prn Active Aspir-81 81 MG Tablet Delayed Release 1 tablet Orally Once a day Active Lisinopril 5 MG Tablet 1 tablet Orally Once a day Active Abilify 5 MG Tablet 1 tablet Orally Once a day Active Wellbutrin XL 300 MG Tablet Extended Release 24 Hour 1 tablet in the morning Orally Once a day Active metFORMIN HCl 500 MG Tablet 1 tablet with meals Orally Twice a day Active Atorvastatin Calcium 20 MG Tablet 1 tablet Orally Once a day Active Pramipexole Dihydrochloride 0.25 MG Tablet 1 tablet before bedtime Orally Once a day Active clonazePAM 0.5 MG Tablet 1 tablet at bed time Orally Once a day Active Folic Acid 1 MG Tablet 1 tablet Orally Once a day Active Social History Tobacco Use: Social History Observation Description Date Details (start date - stop date) Never Smoker NA - NA Social History Drugs/Alcohol: Social Info Question Answer Notes Alcohol Screen Did you have a drink containing alcohol in the past year? 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 Section Notes: Nonsmoker; no sig alcohol Problems Problem Type SNOMED Code ICD Code Onset Dates Problem Status W/U Status Risk Notes Problem Information temporarily unavailable Encounter for screening for malignant neoplasm of colon (Z12.11) Active confirmed Problem Information temporarily unavailable Preprocedural examination (Z01.818) Active confirmed Plan Of Treatment Future Test Test Name Order Date COLONOSCOPY 12/09/2017 Insurance Providers Payer Name Payer Address Payer Phone Subscriber Number Group Number Insured Name Patient Relationship to Insured Coverage Start Date Coverage End Date [facility] [address] [place] [phone] [id number] MORGAN CARRERO Self - patient is the insured Medical (General) History Medical History History ICD Code NIDDM Denies ID,CVA,Lung disease,renal disease Hyperlipidemia Depression Restless leg syndrome Mild sleep apnea on a sleep study in 2 017--did not require a CPAP mask Surgical History Surgery Date(Month/Year) Right ovary and tube removed 1977 Discectomy--lower back 2011
[2025-08-19 10:26] LABS: Appearance Urine Clear; Glucose Urine UA Negative (Negative); PH 5.0 (5.0-9.0); Specific Gravity - Urine 1.015 (1.005-1.025); UMIC TRIGGER UA YES
[2025-08-19 10:42] LABS: Anion Gap 16 (12-20); Blood Urea Nitrogen 18 mg/dL (9-16); Calcium 9.5 mg/dL (8.4-10.2); Carbon Dioxide 27 mmol/L (22-29); Chloride 106 mmol/L (96-108); Estimated Glomerular Filt Rate 54; Potassium 5.5 mmol/L (3.3-5.1); Sodium 143 mmol/L (135-145)
[2025-08-19 11:12] LABS: Total Protein Urine Random < 7 mg/dL (<12)
== END 2025-08-19 08:01 | disposition home or self-care (01) ==
LOC: HO.LAB 08:00
PROVIDERS: PCP Internal Medicine; Visit Provider Internal Medicine Hypertension Specialist
DX: R80.9 Proteinuria, unspecified (principal)
CPT/HCPCS: 36415; 80048; 81001; 81003; 82570; 84156

== ENCOUNTER 2025-08-24 14:31 | Outpatient (AMB) | payer OTHER, SELFPAY ==
--- NOTE | 2025-08-24 14:35 | HO.NEPHOV_ITS ---
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 Required: No Accompanied by: Self / Same As Patient Allergies Seasonal Allergies Allergy (Unknown, Verified 08/24/25 14:39) Unknown Medication List - Last Reconciled 08/24/25 by Macho Eastman MD aripiprazole 5 mg PO DAILY aspirin (Adult Aspirin Regimen) 81 mg PO DAILY atorvastatin 20 mg PO BEDTIME 90 days baclofen 20 mg PO BID blood sugar diagnostic (FreeStyle Lite Strips) once a day blood-glucose meter (FreeStyle Lite Meter kit) As directed bupropion HCl XL (Wellbutrin XL) 300 mg PO QAM cholecalciferol (vitamin D3) 25 mcg PO DAILY 90 days escitalopram oxalate (Lexapro) 20 mg PO DAILY fluticasone propionate 50 mcg/actuation 1 spray intranasal Q12H gabapentin 400 mg PO BEDTIME lancets (FreeStyle Lancets) once a day loratadine (Claritin) 10 mg PO DAILY metformin ER 500 mg PO BID 90 days polyethylene glycol 3350 (Miralax) 17 grams PO DAILY prednisone 50 mg PO QAM tirzepatide (Mounjaro) 5 mg (0.5 mL) subcut QWEEK 4 weeks HPI Comments Details: Gina is a pleasant middle-aged woman with a history of longstanding diabetes mellitus and obesity, Renal cell carcinoma status post partial right nephrectomy in 2019, history of nephrolithiasis status post lithotripsy in 2019 Recently she was found to have microalbuminuria. Urine microalbumin creatinine ratio was 60. She has been on lisinopril for almost 5 years. She has no history of hypertension. History of hyperparathyroidism. Three glands have been removed. She is on Ozempic and she was lost about 40 lb. Recent blood pressures have been rather low. 08/22/24 After switching Lisinopril to Q Pm. she has no further dizziness. Lost few more lbs 02/23/25 59-year-old female presenting with dizziness related to position changes, particularly upon bending down and standing up. She asserts experiencing these symptoms at various times throughout the day without a consistent pattern. There is a well-documented history of low blood pressure, with recent measurements indicating a reading of 110 mmHg, suggesting that her hypotension may contribute to the symptomatology experienced. The dizziness episodes are transient, resolving quickly and have not resulted in any falls to date. She has been on Lisinopril, initially prescribed for renal protection, where notable proteinuria was absent, bringing into question the continued need for this particular management strategy. Previously, a change in the timing of Lisinopril administration to nighttime improved symptoms for the patient. Switching from Zyrtec to Claritin resolved inadequacies in her allergy management this season. Additionally, she monitors her blood glucose sporadically, with occasional hypoglycemic episodes noted, although her glucose maintains a stable trajectory. 08/24/25 The patient is a 60 year old female presenting for follow-up to review her kidney function and a recent abnormal lab result. Her recent labs showed a potassium level of 5.5, which is a new finding as she has not had hyperkalemia in the past, except for a slightly higher reading in 2019 when she was taking lisinopril. The patient reports that her lisinopril has been discontinued, and as a result, she no longer experiences dizziness. She has a history of kidney cancer and is monitored annually by urology. She reports no urinary symptoms such as burning. Regarding medications and lifestyle, she recently started Mounjaro for weight management but has not yet experienced weight loss, with a current weight of 208 lbs. She admits to decreased water consumption and has been taking ove o-ege-fewrtou Motrin, two pills about twice a day, for back pain. She uses a low-sodium seasoning mix infrequently on potatoes but does not use other salt substitutes. [facility] Medical History BCC (basal cell carcinoma of skin) Hyperparathyroidism Mild ascending aorta dilation Class 2 severe obesity with serious comorbidity and body mass index (BMI) of 37.0 to 37.9 in adult GERD (gastroesophageal reflux disease) Mild recurrent major depression Class 2 severe obesity with serious comorbidity and body mass index (BMI) of 38.0 to 38.9 in adult Cancer of right kidney Left wrist pain Obesity (BMI 30-39.9) Depression Non-toxic multinodular goiter Hypertension Dyslipidemia Diabetes type 2, controlled Primary hyperparathyroidism Surgical History Status post Mohs micrographic surgery for basal cell carcinoma (BCC) Status post fine needle aspiration History of colonoscopy History of kidney surgery History of parathyroidectomy History of removal of ovarian cyst History of back surgery Family History Father Diabetes Hypertension High cholesterol Skin cancer Mother Dementia Mental health disorder Family/Other History of breast cancer Social History Housing: House Alcohol intake: never Patient Tobacco Use Status: Never used Tobacco e-Cigarette/Vaping Use: Never Used Second Hand Smoke Exposure: No service: No Current occupational status: employed Current occupational exposures/hazards: No Cognitive needs: No Hearing needs: No Vision needs: No Physical Exam Vital Signs: Last Vital Signs Pulse 88 08/24/25 14:36 BP 122/62 08/24/25 14:36 Pulse Ox 99 08/24/25 14:36 Oxygen Delivery Method Room Air 08/24/25 14:36 BMI result Body Mass Index 33.6 Comfortable Neck supple no JVD. Lungs entry equal no rales. Heart S1-S2 heard no gallop or rub. Abdomen soft nontender. Neuro alert awake oriented. No asterixis. Extremities no edema. Results Reviewed Nephrology Results: Sodium, (135-145) 143 mmol/L 08/19/25 Potassium, (3.3-5.1) 5.5 mmol/L H 08/19/25 Chloride, (96-108) 106 mmol/L 08/19/25 Carbon Dioxide, (22-29) 27 mmol/L 08/19/25 BUN, (9-16) 18 mg/dL H 08/19/25 Creatinine, (0.5-1.4) 1.04 mg/dL 08/19/25 Calcium, (8.4-10.2) 9.5 mg/dL 08/19/25 PTH Intact, (8.7-77.1) 68.9 pg/mL 02/14/25 Urine Protein, (Neg-Trace) Negative mg/dL 08/19/25 Urine Creatinine 57.38 mg/dL 08/19/25 Assessment & Plan Assessment & Plan (1) Microalbuminuria: Comment: In the setting of diabetes mellitus and obesity. Code(s): R80.9 - Proteinuria, unspecified Category: Medical Plan: Discussed importance of tight control blood sugar. Continue with weight loss. Monitor urine protein excretion periodically (2) Diabetes mellitus: Code(s): E11.9 - Type 2 diabetes mellitus without complications Category: Medical Qualifiers: Diabetes mellitus type: type 2 Diabetes mellitus exterminator termite insulin use: without exterminator termite use Diabetes mellitus complication status: without complication Qualified Code(s): E11.9 - Type 2 diabetes mellitus without complications Plan: Optimize blood sugar Follow hemoglobin A1c Encouraged weight loss (3) Cancer of right kidney: Comment: Renal cell carcinoma. Status post partial nephrectomy 2019. Code(s): C64.1 - Malignant neoplasm of right kidney, except renal pelvis Category: Medical Plan: Continue active follow up with Urology Plan Mild hyperkalemia ? due to excessive use of NSAIDS DC Motrin Recheck chem 7 in 3-4 days Stay on low K diet Orders: Orders Basic Metabolic Panel 4 Days C64.1 - Malignant neoplasm of right kidney, except renal pelvis, I10 - Essential (primary) hypertension Coding Level of Care Code Est Pt Level 4 (19864) Diagnoses Microalbuminuria R80.9 Type 2 diabetes mellitus without complication, without long-term current use of insulin E11.9 Diabetes mellitus type: type 2 Diabetes mellitus exterminator termite insulin use: without exterminator termite use Diabetes mellitus complication status: without complication Cancer of right kidney C64.1
[2025-08-24 14:36] VITALS: BP 122/62; PULSE 88; O2SAT 99; BMI 33.6
== END 2025-08-24 15:02 | disposition home or self-care (01) ==
LOC: HO.HKA 14:31
PROVIDERS: PCP Internal Medicine; Visit Provider Internal Medicine Hypertension Specialist
DX: R80.9 Proteinuria, unspecified (principal); E11.9 Type 2 diabetes mellitus without complications; C64.1 Malignant neoplasm of right kidney, except renal pelvis
CPT/HCPCS: 99214

== ENCOUNTER 2025-08-28 06:18 | Outpatient (REF) | payer OTHER, SELFPAY ==
--- OUTSIDE RECORDS SUMMARY | 2025-08-28 06:20 | XMS_ITS | Data Portability ---
Author Organization [place] - [facility], KATHLEEN Carmella PT Address [address] [place] [address] Care Team Providers Care Primer Waterproofing Machine Adjuster Name Role Phone TIO MIKE Primary Care Provider Assessment No assessment recorded. Plan of Treatment Reminders Order Date Submit Date Provider Last Modified By Organization Details Last Modified Time Details Appointments None recorded. Lab None recorded. Referral None recorded. Procedures None recorded. Surgeries None recorded. Imaging XR, cervical spine, 4 or 5 view - 327 4v cspine 2024 025 [employer] [address], [address], [place], [address], 5 14:12:59 MRI, cervical spine, w/o contrast - mri cervical spine without contrast for neck pain with left upper extremity radiculopat hy 2024 025 [facility] ([facility]), [address], [place], [address], 5 16:59:14 Medication Orders Celebrex 200 mg capsule 2024 025 [employer] [address] [id number], [address] [place], [address], 5 14:12:59 Patient TargetsNo targets recorded. Patient Instructions Encounter Date Encounter Id Patient Instructions Last Modified By Organization Details Last Modified Time 12/15/2024 [id number] 1. Continue home exercise program twice weekly 2. May discontinue Celebrex if not providing benefit 3. Can use Tylenol 1000mg three times daily as needed for pain 4. Keep symptom log if symptoms return 5. Return to clinic sooner than scheduled if symptoms significantly worsen 6. Schedule follow-up appointment in 3 months Not available 12/15/2024 10:13:14 Reason for Referral None Reported. Results Created Date Observation Date Name Description Value Unit Range Abnormal Flag Note LastModifiedBy Organization Detail LastModifiedTime 10/26/1910/26/2024 XR, cervi cuco spine , 4 or 5 view http:/ [email or web address] ?Encry pted=s hAaTro YD8dLq bEUv6g %2BXZw aYqtaq 0bqfl% 2Fg9IQ a4ajBk vP9nXo QUaueC m3YtLR FvZlgJ JJ8mAn HZtai3 3b5654 AC0Kqb [employer] jKiQtr [facility] INTERFACE [employer] [facility] [address], [place], [address], 10/26/2024 09:11:42 10/26/19 25 10/26/2024 XR, cervi cuco spine , 4 or 5 view http:/ [email or web address] ?Encry pted=s hAaTro YD8dLq bEUv6g %2BXZw aYqtaq 0bqfl% 2Fg9IQ a4ajBk vP9nXo QUaueC m3YtLR FvZl JJ8mAn HZtai3 6s9572 AC0Kqb [employer] jKiQtr [facility] INTERFACE [employer] [facility] [address], [place], [address], 10/26/2024 09:11:45 11/01/19 25 10/31/2024 MRI, cervi cuco spine , w/o contr ast [facility] Access ion Number : [id number] Name: Jerry calabrese, Rosie Medica l Record Number : [id number] Date of : 1964 Date of Exam: 2024 Referr ing Physic talita: Stacey er, Jaswant ABHAYS [address] [facility] [address] Exam: MR Cervic al Spine (C-) CPT 06758 Room Descri ption: Osteen Siem Espr 1.5 MR Cervic al Spine (C-) CPT 78649 Spondy losis withou t myelop athy or [...] STIR, axial gradie nt echo, and axial T2-aretm ghted sequen dior. COMPAR AXEL: None. FINDIN [...] levels , most promin ent at C5-C6. 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 The [...] . Electr onical ly Signed By: Delia paulino[address] [facility] ([facility]) [address] [facility] [address], [place], [address], 11/02/2024 08:00:47 Result Notes Documentation Provider Name and Address Organization Details Recorded Time Xr, Cervical Spine, 4 Or 5 View : [email or web address]? Encrypted=ypTwTtrRA7mUvpR Uv6g%5OIQlwJkgzb0izwe%2Fg 0ARp8jyZvhM0zIdEJkhvXx4Ty AHKuZbaHPG2jFyVTnxd65u303 5SL9VzpNaUICjcKyZwkMaQ Not Available [facility] 10/26/2024 09:11:43 Xr, Cervical Spine, 4 Or 5 View : [email or web address]? Encrypted=wpRrYuiFZ7uFojQ Uv6g%9HYVkvVusvo5ubxa%2Fg 1LFt7ekTvoG8kMbGXowkLq6Vn VKUuJysCFJ4fSnLQrxl10h505 9BK4UiuYiSXPtsNqThpUxZ Not Available [facility] 10/26/2024 09:11:45 Mri, Cervical Spine, W/o Contrast : [facility] Accession Number: [id number] Patient Name: Rosie Guzman Date of : 1965 Date of Exam: 10-31-2024 Referring Physician: Jaswant Cai [address] [place] [address] [address] [place] [address] Exam: MR Cervical Spine (C-) CPT 46347 Room Description: [facility] Espr 1.5 MR Cervical Spine (C-) CPT 57583 Spondylosis without myelopathy or radiculopathy, cervical region, , mri cervical spine without contrast for neck pain with left upper extremity radiculopathy Spondylosis without myelopathy or radiculopathy, cervical region, , mri cervical spine without contrast for neck pain with left upper extremity radiculopathy [facility] - Standard Department Protocol TECHNIQUE: MRI [...] C6-C7 levels. Electronically Signed By: Delia ballard [facility] 11/02/2024 08:00:48 Problems Name Problem SNOMED Code Status Onset Date Resolution Date Notes Provider Name and Address Organization Details Recorded Time Cervical radiculopathy 05986504 Active 2024 Jaswant Cai MD [address] [place] [address] [address], [place], [address] [place] [address] [facility] 10:13:35 Problem Notes None recorded. Procedures Surgical History Date Name Laterality Status Provider Name and Address Organization Details Recorded Time 9 [facility] 09:16:16 Spine Surgery completed [facility] 12/15/2024 09:16:16 Imaging Results None recorded. Procedure [...] Updated DateTime 12/15/2024 167.64 cm 29.1 kg/m2 75674.63 g Katie ballard [facility] 12/15/2024 09:16:37 Social History Question Answer Notes LastModified by Organizat ion Details LastModified Time Tobacco Smoking Status Never Smoker Katie smith [facility] 12/15/2024 09:16:12 What Is Your Relationship [...] ICD10 Code Diagnosis IMO Codes Diagnosis Note [id number] MD KATHLEEN Swann [address] [place] [address] 10/26/2024 08:42:17 11/15/2024 11:27:24 Cervical spondylosis 659271610 M47.812 [id number] Cervical radiculopathy 99441098 M54.12 [id number] MD KATHLEEN Swann [address] [place] [address] 12/15/2024 09:08:05 01/03/2025 09:20:19 Cervical radiculopathy 89259631 M54.12 [id number] Assessment :1. Cervical radiculopa thy - Improved2. [...] Lopez Member ID Guarantor Name 12/09/2024 1 [email or web address] [id number] Rosie A Schoeffel [id number] Rosie Schoeffel 01/03/2025 1 [employer] [id number] Rosie A Schoeffel [id number] Rosie Schoeffel Notes Date Note Type Note [...] hand clumsiness. 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.Past Treatments: Completed 5 [...] presentFlexion View: Mild anterolisthesis of C4 on N5Fevtvnbeh View: Improved alignment compared to flexionNo prior [...] develop Jaswant Cai MD [address] [facility] [address], [place], [address], [facility] - [facility] 10/26/2024 09:44:33 5 text/html [...] surgery Jaswant Cai MD [address] [facility] [address], [place], [address], [facility] - [facility] 12/15/2024 10:13:59 OBGyn Episode No OBEpisode recorded.
--- OUTSIDE RECORDS SUMMARY | 2025-08-28 06:20 | XMS_ITS | Patient Health Record ---
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 Section Notes: Nonsmoker; no sig alcohol Problems Problem Type SNOMED Code ICD Code Onset Dates Problem Status W/U Status Risk Notes Problem Screening for malignant neoplasm of colon (288619482) Encounter for screening for malignant neoplasm of colon (Z12.11) Active confirmed Problem Preprocedural examination (233246609017164) Preprocedural examination (Z01.818) Active confirmed Plan Of Treatment Future Test Test Name Order Date COLONOSCOPY 12/09/2017 Insurance Providers Payer Name Payer Address Payer Phone Subscriber Number Group Number Insured Name Patient Relationship to Insured Coverage Start Date Coverage End Date [facility] [address] [place] [phone] [id number] MORGAN CARRERO Self - patient is the insured Medical (General) History Medical History History ICD Code NIDDM Denies MT,CVA,Lung disease,renal disease Hyperlipidemia Depression Restless leg syndrome Mild sleep apnea on a sleep study in 2 017--did not require a CPAP mask Surgical History Surgery Date(Month/Year) Right ovary and tube removed 1977 Discectomy--lower back 2011
[2025-08-28 07:28] LABS: Anion Gap 18 (12-20); Blood Urea Nitrogen 15 mg/dL (9-16); Calcium 9.7 mg/dL (8.4-10.2); Carbon Dioxide 28 mmol/L (22-29); Chloride 104 mmol/L (96-108); Estimated Glomerular Filt Rate 53; Potassium 5.0 mmol/L (3.3-5.1); Sodium 145 mmol/L (135-145)
== END 2025-08-28 06:19 | disposition home or self-care (01) ==
LOC: HO.LAB 06:18
PROVIDERS: PCP Internal Medicine; Visit Provider Internal Medicine Hypertension Specialist
DX: I10 Essential (primary) hypertension (principal); C64.1 Malignant neoplasm of right kidney, except renal pelvis
CPT/HCPCS: 36415; 80048